=== PATIENT | male | born 1950 | race Caucasian/White ===

== ENCOUNTER 2017-01-03 17:37 | Emergency (ER) | payer OTHER ==
[~2017-01-03] VITALS: Ht 177.8 cm; Wt 79.0 kg
[~2017-01-03 17:37] MED LIST: AMLO5TAB88 PO; FAMO20TA8 PO; FLUC200T51 PO; FURO40TA5 PO; METF-240 PO; METO-293 PO; SUCR1TAB PO; WARF5TAB73 PO
[2017-01-03] MEDS ORDERED: MECLIZINE 25MG TABLET PO ONE (18:15)
[2017-01-03] MEDS ORDERED: LORAZEPAM 0.5MG TABLET PO ONE (18:15)
[2017-01-03 19:05] LABS: BASOPHILS % 0.9 % (0.0-2.0); EOSINOPHILS % 3.7 % (0.0-5.0); HEMATOCRIT. 42.3 % (42.0-52.0); HEMOGLOBIN. 14.5 g/dL (14.0-18.0); LYMPHOCYTES % 41.8 % (20.0-50.0); MEAN CORPUSCULAR HEMOGLOBIN 30.3 pg (28.0-32.0); MEAN CORPUSCULAR HGB CONC 34.3 g/dL (31.0-37.0); MEAN CORPUSCULAR VOLUME 88.5 fL (80.0-94.0); MEAN PLATELET VOLUME 9.7 fl (7.4-10.4); NEUTROPHILS % 44.6 % (40.0-76.0); PLATELET 145 x1000/uL (130-400); RED BLOOD CELL COUNT 4.78 mill/uL (4.7-6.1); RED CELL DISTRIBUTION WIDTH 13.6 % (11.6-14.6); WHITE BLOOD COUNT 5.4 x1000/uL (4.5-11.0)
[2017-01-03 19:26] LABS: ALANINE AMINOTRANSFERASE 25 IU/L (13-61); ANION GAP 12; CALCIUM 9.5 mg/dL (8.5-10.1); CARBON DIOXIDE 29 mEq/L (21-32); CHLORIDE 103 mEq/L (98-107); INDEX HEMOLYSI 1 (1-3); INDEX ICTERIC 1 (1-4); INDEX LIPEMIC 1 (1-3); UREA NITROGEN BLOOD 13 mg/dL (7-21); eGFR > 60 mL/min (>60)
[2017-01-03 19:27] LABS: TROPONIN I < 0.02 ng/mL (0.00-0.04)
[2017-01-03 21:40] VITALS: BP 124/81
== END 2017-01-03 21:42 | disposition home or self-care (01) ==
LOC: ER 18:09
DX: H81.10 Benign paroxysmal vertigo, unspecified ear (principal); I48.91 Unspecified atrial fibrillation; I25.10 Atherosclerotic heart disease of native coronary artery without angina pectoris; E78.00 Pure hypercholesterolemia, unspecified; E11.9 Type 2 diabetes mellitus without complications; I10 Essential (primary) hypertension; I25.2 Old myocardial infarction; Z79.01 Long term (current) use of anticoagulants; Z90.49 Acquired absence of other specified parts of digestive tract
CPT/HCPCS: 36415; 70450; 80053; 84484; 85025; 93005; 99285; Z7610; J8597

== ENCOUNTER 2017-02-25 20:58 | Inpatient (IN) | payer OTHER ==
[~2017-02-25] VITALS: Ht 165.1 cm; Wt 77.1 kg
[~2017-02-25 20:58] MED LIST changes: -METF-240 PO; +METF500T4 PO
[2017-02-26] MEDS ORDERED: SODIUM CHLORIDE 0.9% 1,000 ML IV ONE ×2 (00:45→04:15)
[2017-02-26] MEDS ORDERED: ONDANSETRON HCL 4MG/2ML VIAL IV ONE (00:45)
[2017-02-26] MEDS ORDERED: MORPHINE SULFATE 4 MG/ML CPJ (NOT FOR IM USE) IV ONE ×2 (00:45→04:15)
[2017-02-26 00:50] LABS: CHLORIDE 100 mEq/L (98-107); INDEX HEMOLYSI 2 (1-3); INDEX ICTERIC 1 (1-4); INDEX LIPEMIC 1 (1-3)
[2017-02-26 00:59] LABS: ALANINE AMINOTRANSFERASE 23 IU/L (13-61); ANION GAP 14; CALCIUM 10.4 mg/dL (8.5-10.1); CARBON DIOXIDE 31 mEq/L (21-32); LIPASE 1065 IU/L (73-393); UREA NITROGEN BLOOD 17 mg/dL (7-21); eGFR > 60 mL/min (>60)
[2017-02-26 01:43] LABS: CLARITY URINE CLEAR (CLEAR); COLOR URINE YELLOW (YELLOW); GLUCOSE URINE NEGATIVE (NEGATIVE); KETONES URINE NEGATIVE (NEGATIVE); LEUKOCYTE ESTERASE URINE NEGATIVE (NEGATIVE); NITRITE URINE NEGATIVE (NEGATIVE); OCCULT BLOOD URINE NEGATIVE (NEGATIVE); PH URINE 5.5 (4.5-8.0); PROTEIN URINE NEGATIVE (NEGATIVE); SPECIFIC GRAVITY URINE 1.015 (1.005-1.030); UROBILINOGEN URINE 0.2 E.U./dL (0.2-1.0)
[2017-02-26 01:51] LABS: BASOPHILS % 0.9 % (0.0-2.0); EOSINOPHILS % 3.2 % (0.0-5.0); HEMATOCRIT. 42.6 % (42.0-52.0); HEMOGLOBIN. 14.5 g/dL (14.0-18.0); LYMPHOCYTES % 35.5 % (20.0-50.0); MEAN CORPUSCULAR HEMOGLOBIN 29.8 pg (28.0-32.0); MEAN CORPUSCULAR HGB CONC 34.1 g/dL (31.0-37.0); MEAN CORPUSCULAR VOLUME 87.5 fL (80.0-94.0); MEAN PLATELET VOLUME 9.5 fl (7.4-10.4); MONOCYTES % 8.9 % (2.0-8.0); NEUTROPHILS % 51.5 % (40.0-76.0); PLATELET 172 x1000/uL (130-400); RED BLOOD CELL COUNT 4.87 mill/uL (4.7-6.1); WHITE BLOOD COUNT 6.8 x1000/uL (4.5-11.0)
[2017-02-26] MEDS ORDERED: HYDROCODONE/ACETAMINOPHEN 5/325MG TABLET PO PRN (04:30)
[2017-02-26] MEDS ORDERED: CLONIDINE 0.1MG TABLET PO PRN (04:30)
[2017-02-26] MEDS ORDERED: IPRATROPIUM/ALBUTEROL 0.5-3(2.5)MG/3ML NEB INH PRN (04:30)
[2017-02-26] MEDS ORDERED: ACETAMINOPHEN 325MG TABLET PO PRN (04:30)
[2017-02-26] MEDS ORDERED: DIPHENHYDRAMINE 50MG/ML VIAL IV PRN (04:30)
[2017-02-26] MEDS: MORPHINE SULFATE 2 MG/ML CPJ (NOT FOR IM USE) IV PRN ×2 (10:56→17:35)
[2017-02-26] MEDS: PANTOPRAZOLE SODIUM 40 MG/VIAL IV SCH (10:56)
[2017-02-26] MEDS: ONDANSETRON HCL 4MG/2ML VIAL IV PRN (17:35)
[2017-02-27] VITALS (7 sets, daily range): BP systolic 120–154; BP diastolic 77–97
[2017-02-27] MEDS: ONDANSETRON HCL 4MG/2ML VIAL IV PRN (00:18)
[2017-02-27] MEDS: SODIUM CHLORIDE 0.9% 1,000 ML IV SCH ×2 (00:29→08:36)
[2017-02-27] MEDS ORDERED: VITA1CAP PO (04:09)
[2017-02-27] MEDS ORDERED: CIME400T PO (04:09)
[2017-02-27] MEDS ORDERED: RANI150T7 (04:09)
[2017-02-27] MEDS ORDERED: COM10 PO (04:09)
[2017-02-27] MEDS ORDERED: ATOR10TA69 PO (04:09)
[2017-02-27] MEDS ORDERED: TRAZ-132 PO (04:09)
[2017-02-27] MEDS ORDERED: FERR325T30 PO (04:09)
[2017-02-27 05:52] LABS: BASOPHILS % 0.8 % (0.0-2.0); EOSINOPHILS % 3.5 % (0.0-5.0); HEMATOCRIT. 38.8 % (42.0-52.0); HEMOGLOBIN. 13.3 g/dL (14.0-18.0); LYMPHOCYTES % 31.3 % (20.0-50.0); MEAN CORPUSCULAR HGB CONC 34.3 g/dL (31.0-37.0); MEAN CORPUSCULAR VOLUME 87.3 fL (80.0-94.0); MEAN PLATELET VOLUME 9.3 fl (7.4-10.4); MONOCYTES % 8.2 % (2.0-8.0); NEUTROPHILS % 56.2 % (40.0-76.0); PLATELET 138 x1000/uL (130-400); RED BLOOD CELL COUNT 4.45 mill/uL (4.7-6.1); WHITE BLOOD COUNT 4.5 x1000/uL (4.5-11.0)
[2017-02-27 07:52] LABS: ALANINE AMINOTRANSFERASE 95 IU/L (13-61); ALBUMIN 3.3 g/dL (3.4-5.0); ANION GAP 10; CALCIUM 9.4 mg/dL (8.5-10.1); CARBON DIOXIDE 31 mEq/L (21-32); CHLORIDE 105 mEq/L (98-107); HDL CHOLESTEROL 46 mg/dL (40-59); INDEX HEMOLYSI 1 (1-3); INDEX ICTERIC 1 (1-4); INDEX LIPEMIC 1 (1-3); LDL CHOLESTEROL 68 mg/dL (5-100); LIPASE 111 IU/L (73-393); TRIGLYCERIDE 131 mg/dL (0-150); UREA NITROGEN BLOOD 10 mg/dL (7-21); eGFR > 60 mL/min (>60)
[2017-02-27 08:59] LABS: INR 1.1; PROTHROMBIN TIME 11.1 sec
[2017-02-27] MEDS ORDERED: FAMOTIDINE 20MG TABLET PO SCH (09:00)
[2017-02-27] MEDS: PANTOPRAZOLE SODIUM 40 MG/VIAL IV SCH (09:14)
[2017-02-27] MEDS: SUCRALFATE 1G TABLET PO SCH ×2 (09:14→17:48)
[2017-02-27] MEDS: VITAMIN B / W-C 1 TAB PO SCH (09:14)
[2017-02-27] MEDS: PROCHLORPERAZINE MALEATE 10MG TABLET PO SCH ×2 (09:14→17:48)
[2017-02-27] MEDS: ATORVASTATIN CALCIUM 10MG TABLET PO SCH (09:15)
[2017-02-27] MEDS: METFORMIN HCL 500MG TABLET PO SCH (09:15)
[2017-02-27] MEDS: FUROSEMIDE 40MG TABLET PO SCH ×2 (09:15→17:48)
[2017-02-27] MEDS: FERROUS SULFATE 325MG TABLET PO SCH (09:15)
[2017-02-27] MEDS: AMLODIPINE 5MG TABLET PO SCH (09:15)
[2017-02-27] MEDS: METOCLOPRAMIDE HCL 10MG TABLET PO SCH ×2 (09:15→17:48)
[2017-02-27] MEDS: WARFARIN SODIUM 5MG TABLET PO SCH (17:59)
[2017-02-27] MEDS: MORPHINE SULFATE 2 MG/ML CPJ (NOT FOR IM USE) IV PRN (20:41)
[2017-02-27] MEDS: DEXT 5%/0.45% NACL 1000ML 1,000 ML IV SCH (20:44)
[2017-02-27] MEDS ORDERED: TRAZODONE HCL 100MG TABLET PO SCH (21:00)
[2017-02-28] VITALS: BP 105/76
[2017-02-28 04:00] VITALS: BP 107/75
[2017-02-28] MEDS: MORPHINE SULFATE 2 MG/ML CPJ (NOT FOR IM USE) IV PRN ×2 (04:37→10:12)
[2017-02-28 08:00] VITALS: BP 120/78
[2017-02-28] MEDS: DEXT 5%/0.45% NACL 1000ML 1,000 ML IV SCH (08:57)
[2017-02-28] MEDS: PANTOPRAZOLE SODIUM 40 MG/VIAL IV SCH (08:57)
[2017-02-28] MEDS: ATORVASTATIN CALCIUM 10MG TABLET PO SCH (09:00)
[2017-02-28] MEDS: AMLODIPINE 5MG TABLET PO SCH (09:00)
[2017-02-28] MEDS: FERROUS SULFATE 325MG TABLET PO SCH (09:00)
[2017-02-28] MEDS: VITAMIN B / W-C 1 TAB PO SCH (09:00)
[2017-02-28] MEDS: FUROSEMIDE 40MG TABLET PO SCH ×2 (09:00→17:11)
[2017-02-28] MEDS: METFORMIN HCL 500MG TABLET PO SCH (09:00)
[2017-02-28] MEDS: METOCLOPRAMIDE HCL 10MG TABLET PO SCH ×2 (09:00→17:12)
[2017-02-28] MEDS: PROCHLORPERAZINE MALEATE 10MG TABLET PO SCH ×2 (09:00→17:11)
[2017-02-28] MEDS: SUCRALFATE 1G TABLET PO SCH ×2 (09:00→17:11)
[2017-02-28 12:00] VITALS: BP 111/69
[2017-02-28] MEDS ORDERED: LACTULOSE 20G/30ML UDC PO NR (13:15)
[2017-02-28 16:00] VITALS: BP 134/88
[2017-02-28] MEDS: WARFARIN SODIUM 5MG TABLET PO SCH (17:11)
[2017-02-28 17:25] VITALS: BP 134/88
== END 2017-02-28 18:10 | disposition home or self-care (01) | DRG 282 ==
LOC: ER 20:59 → 6EST 02-26 04:15
PROVIDERS: ADMIT Internal Medicine; ATTEND Internal Medicine
DX: K85.90 Acute pancreatitis without necrosis or infection, unspecified (principal); K27.5 Chronic or unspecified peptic ulcer, site unspecified, with perforation; I48.0 Paroxysmal atrial fibrillation; I10 Essential (primary) hypertension; E11.9 Type 2 diabetes mellitus without complications; Z79.4 Long term (current) use of insulin; Z79.01 Long term (current) use of anticoagulants; Z82.49 Family history of ischemic heart disease and other diseases of the circulatory system; Z83.3 Family history of diabetes mellitus; Z86.12 Personal history of poliomyelitis; Z87.11 Personal history of peptic ulcer disease; Z90.49 Acquired absence of other specified parts of digestive tract
CPT/HCPCS: 36415; 74176; 80053; 80061; 81003; 82962; 83690; 85025; 85610; 93005; 96361; 96374; 96375; 96376; 99285; C9113; J2270; J2405; J3490; J7030; J8597; Q0164

== ENCOUNTER 2018-10-26 21:45 | Inpatient (IN) | payer MEDICARE, MEDICAID ==
[~2018-10-26] VITALS: Ht 170.2 cm; Wt 84.4 kg
[~2018-10-26 21:45] MED LIST changes: +ATOR10TA69 PO; +CIME400T PO; +COM10 PO; +FERR325T30 PO; +METF-414 PO; -METF500T4 PO; +RANI150T7; +TRAZ-213 PO; +VITA1CAP PO; +WARF-53 PO; -WARF5TAB73 PO
[2018-10-27] MEDS ORDERED: ONDANSETRON HCL 4MG/2ML INJ IV STA (02:31)
[2018-10-27] MEDS ORDERED: MORPHINE SULFATE 4 MG/ML CPJ (NOT FOR IM USE) IV STA (02:31)
[2018-10-27] MEDS ORDERED: FAMOTIDINE 20MG/2ML VIAL IV STA (02:31)
[2018-10-27] MEDS ORDERED: SODIUM CHLORIDE 0.9% 1,000 ML IV ONE (02:31)
[2018-10-27 03:04] LABS: CHLORIDE 107 mEq/L (98-107)
[2018-10-27 03:05] LABS: INR 1.1; PROTHROMBIN TIME 10.8 sec (9.1-11.1)
[2018-10-27 03:07] LABS: BASOPHILS % 0.7 % (0.0-2.0); EOSINOPHILS % 2.6 % (0.0-5.0); HEMATOCRIT. 45.1 % (42.0-52.0); HEMOGLOBIN. 15.2 g/dL (14.0-18.0); LYMPHOCYTES % 28.9 % (20.0-50.0); MEAN CORPUSCULAR HEMOGLOBIN 29.6 pg (28.0-32.0); MEAN CORPUSCULAR VOLUME 88.1 fL (80.0-94.0); MEAN PLATELET VOLUME 9.8 fl (7.4-10.4); MONOCYTES % 8.6 % (2.0-8.0); NEUTROPHILS % 59.2 % (40.0-76.0); PLATELET 194 x1000/uL (130-400); RED BLOOD CELL COUNT 5.13 mill/uL (4.7-6.1); RED CELL DISTRIBUTION WIDTH 13.7 % (11.6-14.6)
[2018-10-27] MEDS: SODIUM CHLORIDE 0.9% 1,000 ML IV SCH ×2 (04:26→20:41)
[2018-10-27] MEDS ORDERED: MAGNESIUM/ALUMINUM HYDROXIDE/SIMETHICONE 30ML UDC PO PRN (04:30)
[2018-10-27] MEDS ORDERED: DIPHENHYDRAMINE 50MG/ML VIAL IV PRN (04:30)
[2018-10-27] MEDS ORDERED: DOCUSATE SODIUM 100MG CAPSULE PO PRN (04:30)
[2018-10-27] MEDS ORDERED: ACETAMINOPHEN 325MG TABLET PO PRN (04:30)
[2018-10-27] MEDS ORDERED: IPRATROPIUM/ALBUTEROL 0.5-3(2.5)MG/3ML NEB INH PRN (04:30)
[2018-10-27] MEDS ORDERED: ONDANSETRON HCL 4MG/2ML INJ IV PRN (04:30)
[2018-10-27] MEDS: PANTOPRAZOLE SODIUM 40 MG/VIAL IV SCH ×2 (04:30→09:00)
[2018-10-27] MEDS ORDERED: GUAIFENESIN 200MG/10ML SUGAR FREE UDC PO PRN (04:30)
[2018-10-27] MEDS ORDERED: DEXTROSE 50% WATER 50ML SYRINGE IV PRN ×2 (04:30)
[2018-10-27] MEDS ORDERED: CLONIDINE 0.1MG TABLET PO PRN (04:30)
[2018-10-27] MEDS ORDERED: IOHEXOL-300 100 ML BOTTLE ONE (05:51)
[2018-10-27 06:13] LABS: CLARITY URINE CLEAR (CLEAR); COLOR URINE YELLOW (YELLOW); KETONES URINE NEGATIVE (NEGATIVE); LEUKOCYTE ESTERASE URINE NEGATIVE (NEGATIVE); NITRITE URINE NEGATIVE (NEGATIVE); OCCULT BLOOD URINE NEGATIVE (NEGATIVE); PH URINE 5.5 (4.5-8.0); PROTEIN URINE NEGATIVE (NEGATIVE); SPECIFIC GRAVITY URINE 1.022 (1.005-1.030)
[2018-10-27] MEDS: INSULIN LISPRO 100 UNITS/ML SUBCUT SCH ×3 (08:20→21:00)
[2018-10-27] MEDS: PROCHLORPERAZINE MALEATE 10MG TABLET PO SCH ×2 (09:00→20:41)
[2018-10-27] MEDS ORDERED: ATORVASTATIN CALCIUM 10MG TABLET PO SCH (09:00)
[2018-10-27] MEDS ORDERED: METOCLOPRAMIDE HCL 10MG TABLET PO ONE (09:00)
[2018-10-27] MEDS ORDERED: FUROSEMIDE 40MG TABLET PO SCH (09:00)
[2018-10-27] MEDS: SUCRALFATE 1G TABLET PO SCH ×3 (09:00→20:41)
[2018-10-27] MEDS ORDERED: AMLODIPINE 5MG TABLET PO SCH (09:00)
[2018-10-27] MEDS ORDERED: WARFARIN SODIUM 5MG TABLET PO SCH (09:00)
[2018-10-27] MEDS: FERROUS SULFATE 325MG TABLET PO SCH (09:00)
[2018-10-27] MEDS: BLOOD SUGAR DIAGNOSTIC STRIP TEST SCH ×3 (11:50→20:42)
[2018-10-27] MEDS ORDERED: SODIUM CHLORIDE 0.9% 1,000 ML IV SCH (12:30)
[2018-10-27 16:00] VITALS: BP 105/61
[2018-10-27] MEDS: METOCLOPRAMIDE HCL 10MG TABLET PO SCH (17:05)
[2018-10-27] MEDS: ATORVASTATIN CALCIUM 10MG TABLET PO SCH (17:05)
[2018-10-27] MEDS: AMLODIPINE 5MG TABLET PO SCH (17:06)
[2018-10-27 20:19] VITALS: BP 110/79
[2018-10-27] MEDS: TRAZODONE HCL 100MG TABLET PO SCH (20:41)
[2018-10-27] MEDS: FUROSEMIDE 40MG TABLET PO SCH (20:41)
[2018-10-27] MEDS ORDERED: INSULIN GLARGINE UD 100 UNITS/ML SYR SUBCUT SCH (22:00)
[2018-10-28 00:41] VITALS: BP 113/81
[2018-10-28 04:00] VITALS: BP 107/63
[2018-10-28] MEDS: FUROSEMIDE 40MG TABLET PO SCH (06:17)
[2018-10-28] MEDS: BLOOD SUGAR DIAGNOSTIC STRIP TEST SCH ×4 (06:17→20:20)
[2018-10-28] MEDS: SUCRALFATE 1G TABLET PO SCH ×4 (06:17→20:20)
[2018-10-28] MEDS: SODIUM CHLORIDE 0.9% 1,000 ML IV SCH ×2 (07:06→21:16)
[2018-10-28] MEDS: INSULIN LISPRO 100 UNITS/ML SUBCUT SCH ×4 (07:15→20:20)
[2018-10-28 07:20] LABS: INR 1.1; PROTHROMBIN TIME 10.9 sec (9.1-11.1)
[2018-10-28 07:23] LABS: HEMATOCRIT. 41.8 % (42.0-52.0); HEMOGLOBIN. 13.9 g/dL (14.0-18.0); MEAN CORPUSCULAR HEMOGLOBIN 29.4 pg (28.0-32.0); MEAN CORPUSCULAR VOLUME 88.6 fL (80.0-94.0); MEAN PLATELET VOLUME 9.5 fl (7.4-10.4); PLATELET 178 x1000/uL (130-400); RED BLOOD CELL COUNT 4.72 mill/uL (4.7-6.1); RED CELL DISTRIBUTION WIDTH 13.5 % (11.6-14.6)
[2018-10-28 07:41] LABS: CHLORIDE 110 mEq/L (98-107)
[2018-10-28 07:51] LABS: AMYLASE 32 IU/L (25-115)
[2018-10-28 07:54] LABS: PHOSPHORUS 2.8 mg/dL (2.5-4.9)
[2018-10-28 08:00] VITALS: BP 118/69
[2018-10-28] MEDS: FERROUS SULFATE 325MG TABLET PO SCH (09:29)
[2018-10-28] MEDS: PANTOPRAZOLE SODIUM 40 MG/VIAL IV SCH (09:29)
[2018-10-28] MEDS: PROCHLORPERAZINE MALEATE 10MG TABLET PO SCH ×2 (09:29→17:22)
[2018-10-28] MEDS: ATORVASTATIN CALCIUM 10MG TABLET PO SCH (09:29)
[2018-10-28] MEDS: AMLODIPINE 5MG TABLET PO SCH (09:29)
[2018-10-28] MEDS: METOCLOPRAMIDE HCL 10MG TABLET PO SCH ×2 (09:30→17:23)
[2018-10-28 12:00] VITALS: BP 113/59
[2018-10-28 13:45] LABS: PLATELET ESTIMATE NORMAL
[2018-10-28] MEDS: DILTIAZEM HCL 30MG TABLET PO SCH ×2 (14:00→21:17)
[2018-10-28 16:00] VITALS: BP 109/54
[2018-10-28] MEDS ORDERED: RIVAROXABAN 10 MG TABLET PO SCH (17:00)
[2018-10-28] MEDS: AMIODARONE HCL 200 MG TABLET PO SCH (17:22)
[2018-10-28] MEDS ORDERED: WARFARIN SODIUM 5MG TABLET PO SCH (18:00)
[2018-10-28 20:00] VITALS: BP 103/52
[2018-10-28] MEDS: TRAZODONE HCL 100MG TABLET PO SCH (20:20)
[2018-10-29] VITALS: BP 111/55
[2018-10-29 04:00] VITALS: BP 114/65
[2018-10-29] MEDS: DILTIAZEM HCL 30MG TABLET PO SCH (06:00)
[2018-10-29] MEDS: BLOOD SUGAR DIAGNOSTIC STRIP TEST SCH ×2 (06:06→12:46)
[2018-10-29] MEDS: INSULIN LISPRO 100 UNITS/ML SUBCUT SCH ×2 (06:06→12:15)
[2018-10-29 06:14] VITALS: BP 108/66
[2018-10-29] MEDS: METOCLOPRAMIDE HCL 10MG TABLET PO SCH ×2 (06:18→12:51)
[2018-10-29] MEDS: SUCRALFATE 1G TABLET PO SCH ×2 (06:18→12:51)
[2018-10-29 06:31] LABS: EOSINOPHILS % 3.5 % (0.0-5.0); HEMATOCRIT. 37.6 % (42.0-52.0); HEMOGLOBIN. 12.7 g/dL (14.0-18.0); LYMPHOCYTES % 29.3 % (20.0-50.0); MEAN CORPUSCULAR HEMOGLOBIN 29.9 pg (28.0-32.0); MEAN CORPUSCULAR VOLUME 88.6 fL (80.0-94.0); MEAN PLATELET VOLUME 9.8 fl (7.4-10.4); MONOCYTES % 9.1 % (2.0-8.0); NEUTROPHILS % 57.1 % (40.0-76.0); PLATELET 165 x1000/uL (130-400); RED BLOOD CELL COUNT 4.24 mill/uL (4.7-6.1); RED CELL DISTRIBUTION WIDTH 13.4 % (11.6-14.6)
[2018-10-29 07:15] LABS: CHLORIDE 112 mEq/L (98-107)
[2018-10-29 08:00] VITALS: BP 117/70
[2018-10-29] MEDS: ATORVASTATIN CALCIUM 10MG TABLET PO SCH (10:33)
[2018-10-29] MEDS: PANTOPRAZOLE SODIUM 40 MG/VIAL IV SCH (10:33)
[2018-10-29] MEDS: PROCHLORPERAZINE MALEATE 10MG TABLET PO SCH (10:34)
[2018-10-29] MEDS: AMIODARONE HCL 200 MG TABLET PO SCH (10:34)
[2018-10-29 13:44] VITALS: BP 114/96
[2018-10-29] MEDS ORDERED: RIVAROXABAN 20 MG TABLET PO SCH (17:00)
== END 2018-10-29 14:45 | disposition home or self-care (01) | DRG 48 ==
LOC: ER 21:45 → 5WST 10-27 03:19 → EDBEDREQ 10-27 03:21 → ENRESERV 10-27 13:12
PROVIDERS: ADMIT Family Medicine Adult Medicine; ATTEND Family Medicine Adult Medicine
DX: E11.43 Type 2 diabetes mellitus with diabetic autonomic (poly)neuropathy (principal); I48.0 Paroxysmal atrial fibrillation; I42.9 Cardiomyopathy, unspecified; E86.0 Dehydration; K31.84 Gastroparesis; I51.3 Intracardiac thrombosis, not elsewhere classified; I10 Essential (primary) hypertension; I71.4 Abdominal aortic aneurysm, without rupture; J44.9 Chronic obstructive pulmonary disease, unspecified; N28.9 Disorder of kidney and ureter, unspecified; Z79.01 Long term (current) use of anticoagulants; Z87.11 Personal history of peptic ulcer disease; Z82.49 Family history of ischemic heart disease and other diseases of the circulatory system; Z83.3 Family history of diabetes mellitus; Z86.79 Personal history of other diseases of the circulatory system; Z87.891 Personal history of nicotine dependence; Z90.49 Acquired absence of other specified parts of digestive tract; Z79.899 Other long term (current) drug therapy; Z79.84 Long term (current) use of oral hypoglycemic drugs
CPT/HCPCS: 36415; 71045; 74177; 76700; 80048; 82150; 82962; 83036; 83605; 83735; 83880; 84100; 84443; 84484; 86850; 86900; 93005; 99285; C9113; J2270; J2405; J3490; J7030; J8597; Q0164; Q9967

== ENCOUNTER 2019-01-19 13:46 | Inpatient (IN) | payer MEDICARE, OTHER ==
[~2019-01-19] VITALS: Ht 170.2 cm; Wt 87.1 kg
[~2019-01-19 13:46] MED LIST changes: -WARF-53 PO
[2019-01-19] MEDS ORDERED: SODIUM CHLORIDE 0.9% 1,000 ML IV ONE (14:12)
[2019-01-19] MEDS ORDERED: MECLIZINE 25MG TABLET PO ONE (14:15)
[2019-01-19 14:45] LABS: BASOPHILS % 1.2 % (0.0-2.0); EOSINOPHILS % 2.1 % (0.0-5.0); HEMATOCRIT. 40.2 % (42.0-52.0); HEMOGLOBIN. 13.5 g/dL (14.0-18.0); LYMPHOCYTES % 14.7 % (20.0-50.0); MEAN CORPUSCULAR HEMOGLOBIN 28.9 pg (28.0-32.0); MEAN CORPUSCULAR VOLUME 86.3 fL (80.0-94.0); MEAN PLATELET VOLUME 8.6 fl (7.4-10.4); MONOCYTES % 7.1 % (2.0-8.0); NEUTROPHILS % 74.9 % (40.0-76.0); PLATELET 263 x1000/uL (130-400); RED BLOOD CELL COUNT 4.66 mill/uL (4.7-6.1)
[2019-01-19 14:48] LABS: CHLORIDE 100 mEq/L (98-107)
[2019-01-19 14:51] LABS: INR 1.1; PARTIAL THROMBOPLASTIN TIME 27.4 sec (23.4-31.0); PROTHROMBIN TIME 10.9 sec (9.6-11.0)
[2019-01-19] MEDS ORDERED: ONDANSETRON HCL 4MG/2ML INJ IV ONE (15:45)
[2019-01-19] MEDS ORDERED: ASPIRIN 81MG TABLET PO ONE (15:45)
[2019-01-19] MEDS ORDERED: GUAIFENESIN 200MG/10ML SUGAR FREE UDC PO PRN (17:30)
[2019-01-19] MEDS ORDERED: LORAZEPAM 0.5MG TABLET PO PRN (17:30)
[2019-01-19] MEDS ORDERED: DEXTROSE 50% WATER 50ML SYRINGE IV PRN (17:30)
[2019-01-19] MEDS ORDERED: MECLIZINE 25MG TABLET PO PRN (17:30)
[2019-01-19] MEDS ORDERED: NA PHOS,M-B/NA PHOS,DI-BA ENEMA 118ML PR PRN (17:30)
[2019-01-19] MEDS ORDERED: HYDROCODONE/ACETAMINOPHEN 5/325MG TABLET PO PRN (17:30)
[2019-01-19] MEDS ORDERED: IPRATROPIUM/ALBUTEROL 0.5-3(2.5)MG/3ML NEB INH PRN (17:30)
[2019-01-19] MEDS ORDERED: SODIUM CHLORIDE 0.45% 1,000 ML IV SCH (17:30)
[2019-01-19] MEDS ORDERED: ACETAMINOPHEN 650MG SUPP PR PRN (17:30)
[2019-01-19] MEDS ORDERED: MAGNESIUM/ALUMINUM HYDROXIDE/SIMETHICONE 30ML UDC PO PRN (17:30)
[2019-01-19] MEDS ORDERED: DIPHENHYDRAMINE 50MG/ML VIAL IV PRN (17:30)
[2019-01-19] MEDS ORDERED: ONDANSETRON HCL 4MG/2ML INJ IV PRN (17:30)
[2019-01-19] MEDS ORDERED: DOCUSATE SODIUM 100MG CAPSULE PO PRN (17:30)
[2019-01-19] MEDS ORDERED: ACETAMINOPHEN 325MG TABLET PO PRN (17:30)
[2019-01-19 18:54] LABS: CLARITY URINE CLEAR (CLEAR); COLOR URINE YELLOW (YELLOW); KETONES URINE NEGATIVE (NEGATIVE); LEUKOCYTE ESTERASE URINE NEGATIVE (NEGATIVE); NITRITE URINE NEGATIVE (NEGATIVE); OCCULT BLOOD URINE NEGATIVE (NEGATIVE); PH URINE 6.5 (4.5-8.0); PROTEIN URINE NEGATIVE (NEGATIVE); SPECIFIC GRAVITY URINE 1.009 (1.005-1.030)
[2019-01-19 19:08] LABS: *AMPHETAMINES SCREEN URINE NEGATIVE (NEGATIVE); *BARBITURATES SCREEN URINE NEGATIVE (NEGATIVE); *BENZODIAZEPINES SCREEN URINE NEGATIVE (NEGATIVE); *COCAINE SCREEN URINE NEGATIVE (NEGATIVE); METHADONE URINE SCREEN NEGATIVE (NEGATIVE)
[2019-01-19 19:09] LABS: CANNABINOID URINE SCREEN NEGATIVE (NEGATIVE); OPIATES URINE SCREEN NEGATIVE (NEGATIVE); PHENCYCLIDINE URINE SCREEN NEGATIVE (NEGATIVE)
[2019-01-19 22:42] VITALS: BP 118/68
[2019-01-19] MEDS: INSULIN LISPRO 100 UNITS/ML SUBCUT SCH (22:42)
[2019-01-19] MEDS: BLOOD SUGAR DIAGNOSTIC STRIP TEST SCH (22:42)
[2019-01-20 04:00] VITALS: BP 122/70
[2019-01-20 07:17] LABS: CHLORIDE 106 mEq/L (98-107)
[2019-01-20 07:25] LABS: LDL CHOLESTEROL 108 mg/dL (5-100)
[2019-01-20 07:27] LABS: HDL CHOLESTEROL 30 mg/dL (40-59)
[2019-01-20 07:35] LABS: BASOPHILS % 1.1 % (0.0-2.0); EOSINOPHILS % 2.5 % (0.0-5.0); HEMATOCRIT. 37.4 % (42.0-52.0); HEMOGLOBIN. 12.4 g/dL (14.0-18.0); LYMPHOCYTES % 20.6 % (20.0-50.0); MEAN CORPUSCULAR HEMOGLOBIN 28.7 pg (28.0-32.0); MEAN CORPUSCULAR VOLUME 86.7 fL (80.0-94.0); MEAN PLATELET VOLUME 8.8 fl (7.4-10.4); MONOCYTES % 8.3 % (2.0-8.0); NEUTROPHILS % 67.5 % (40.0-76.0); PLATELET 217 x1000/uL (130-400); RED BLOOD CELL COUNT 4.31 mill/uL (4.7-6.1); RED CELL DISTRIBUTION WIDTH 14.2 % (11.6-14.6)
[2019-01-20 08:00] VITALS: BP 157/61
[2019-01-20] MEDS: INSULIN LISPRO 100 UNITS/ML SUBCUT SCH ×4 (08:10→21:51)
[2019-01-20] MEDS: BLOOD SUGAR DIAGNOSTIC STRIP TEST SCH ×4 (08:33→21:47)
[2019-01-20] MEDS: ENOXAPARIN 40MG/0.4ML SYR SUBCUT SCH (09:38)
[2019-01-20 12:00] VITALS: BP 109/56
[2019-01-20] MEDS ORDERED: LIDOCAINE HCL/PF 1% 2ML VIAL ONE (15:22)
[2019-01-20] MEDS ORDERED: TRAZODONE HCL 50MG TABLET PO PRN (15:45)
[2019-01-20 16:00] VITALS: BP 113/60
[2019-01-20 16:06] LABS: BG BASE EXCESS 0.4 mmol/L (-2.0-2.0); BG CARBOXYHEMOGLOBIN 0.6 % (0.5-1.5); BG DEOXYHEMOGLOBIN 4.1 % (0.0-5.0); BG HCO3 ACT 24.8 mmol/L (22.0-26.0); BG METHEMOGLOBIN 0.1 % (0.0-1.5); BG OXYGEN SATURATION 95.9 % (92.0-98.5); BG OXYHEMOGLOBIN 95.2 % (94.0-97.0); BG PCO2 39.5 mmHg (35.0-45.0); BG PH 7.416 (7.350-7.450); BG PO2 81.3 mmHg (75.0-100.0); BG SAMPLE SITE RIGHT RADIAL; BG TOTAL HEMOGLOBIN 14.2 g/dL (12.0-18.0); BG VENT MODE ROOM AIR
[2019-01-20] MEDS ORDERED: IOHEXOL-350 100 ML BOTTLE ONE (16:43)
[2019-01-20] MEDS ORDERED: BUDESONIDE 0.5MG/2ML NEB HHN SCH (17:00)
[2019-01-20] MEDS: ASPIRIN 81MG TABLET PO SCH (17:35)
[2019-01-20] MEDS: AMLODIPINE 2.5MG TABLET PO SCH (17:35)
[2019-01-20] MEDS: SUCRALFATE 1G TABLET PO SCH (17:35)
[2019-01-20] MEDS ORDERED: IPRATROPIUM/ALBUTEROL 0.5-3(2.5)MG/3ML NEB HHN SCH (18:00)
[2019-01-20] MEDS ORDERED: REGADENOSON 0.4 MG/5 ML IV NR (19:00)
[2019-01-20 20:00] VITALS: BP 142/72
[2019-01-20] MEDS ORDERED: ATORVASTATIN CALCIUM 10MG TABLET PO SCH (21:00)
[2019-01-20 23:57] VITALS: BP 136/69
[2019-01-21] VITALS (9 sets, daily range): BP systolic 119–146; BP diastolic 72–95
[2019-01-21 06:19] LABS: HEMOGLOBIN 12.8 g/dL (14.0-18.0); MEAN CORPUSCULAR HEMOGLOBIN 28.9 pg (28.0-32.0); MEAN CORPUSCULAR VOLUME 86.2 fL (80.0-94.0); PLATELET 224 x1000/uL (130-400); RED BLOOD CELL COUNT 4.41 mill/uL (4.7-6.1); RED CELL DISTRIBUTION WIDTH 14.5 % (11.6-14.6)
[2019-01-21 06:33] LABS: CHLORIDE 105 mEq/L (98-107)
[2019-01-21] MEDS ORDERED: LEVOTHYROXINE SODIUM 25MCG TABLET PO SCH (07:40)
[2019-01-21] MEDS: INSULIN LISPRO 100 UNITS/ML SUBCUT SCH ×3 (08:10→18:10)
[2019-01-21] MEDS: BLOOD SUGAR DIAGNOSTIC STRIP TEST SCH ×3 (08:35→17:40)
[2019-01-21] MEDS: SUCRALFATE 1G TABLET PO SCH ×2 (09:00→19:01)
[2019-01-21] MEDS: ASPIRIN 81MG TABLET PO SCH (09:00)
[2019-01-21] MEDS ORDERED: FERROUS SULFATE 325MG TABLET PO SCH (09:00)
[2019-01-21] MEDS ORDERED: CIMETIDINE 400 MG PO SCH (09:00)
[2019-01-21] MEDS ORDERED: FAMOTIDINE 20MG TABLET PO SCH (09:00)
[2019-01-21] MEDS: AMLODIPINE 2.5MG TABLET PO SCH (09:00)
[2019-01-21] MEDS ORDERED: REGADENOSON 0.4 MG/5 ML IV ONE (09:15)
[2019-01-21] MEDS: ENOXAPARIN 40MG/0.4ML SYR SUBCUT SCH (14:08)
== END 2019-01-21 20:25 | disposition home or self-care (01) | DRG 48 ==
LOC: ER 13:46 → 7WST 16:29 → ENRESERV 20:45
PROVIDERS: ADMIT Internal Medicine; ATTEND Internal Medicine
DX: G90.8 Other disorders of autonomic nervous system (principal); I26.99 Other pulmonary embolism without acute cor pulmonale; J84.9 Interstitial pulmonary disease, unspecified; D68.59 Other primary thrombophilia; E11.65 Type 2 diabetes mellitus with hyperglycemia; I24.9 Acute ischemic heart disease, unspecified; I48.0 Paroxysmal atrial fibrillation; D64.9 Anemia, unspecified; R54 Age-related physical debility; F17.200 Nicotine dependence, unspecified, uncomplicated; E78.5 Hyperlipidemia, unspecified; I10 Essential (primary) hypertension; R00.1 Bradycardia, unspecified; Z82.49 Family history of ischemic heart disease and other diseases of the circulatory system; Z83.3 Family history of diabetes mellitus; Z86.12 Personal history of poliomyelitis; Z87.11 Personal history of peptic ulcer disease; Z99.3 Dependence on wheelchair; Z79.899 Other long term (current) drug therapy; Z90.49 Acquired absence of other specified parts of digestive tract
CPT/HCPCS: 36415; 36600; 71045; 71275; 78452; 80048; 80061; 80305; 82375; 82805; 82962; 83036; 83880; 84439; 84443; 84484; 85027; 85379; 93005; 93017; 93306; 93880; 93970; 96374; 97116; 97163; 99285; A9500; J1650; J1815; J2405; J2785; J3490; J7030; J7626; J8597; Q9967

== ENCOUNTER 2019-03-08 11:55 | Emergency (ER) | payer MEDICARE, OTHER ==
[~2019-03-08] VITALS: Ht 177.8 cm; Wt 87.0 kg
[2019-03-08] MEDS: MORPHINE SULFATE 4 MG/ML CPJ (NOT FOR IM USE) IV STA (12:27)
[2019-03-08] MEDS: ONDANSETRON HCL 4MG/2ML INJ IV STA (12:27)
[2019-03-08] MEDS: NITROGLYCERIN OINT 1GM/INCH UDPKT TD ONE (12:30)
[2019-03-08 12:40] LABS: BASOPHILS % 1.3 % (0.0-2.0); CHLORIDE 104 mEq/L (98-107); EOSINOPHILS % 2.1 % (0.0-5.0); HEMATOCRIT. 42.8 % (42.0-52.0); HEMOGLOBIN. 14.4 g/dL (14.0-18.0); LYMPHOCYTES % 17.9 % (20.0-50.0); MEAN CORPUSCULAR HEMOGLOBIN 28.9 pg (28.0-32.0); MEAN PLATELET VOLUME 8.7 fl (7.4-10.4); MONOCYTES % 6.8 % (2.0-8.0); NEUTROPHILS % 71.9 % (40.0-76.0); PLATELET 256 x1000/uL (130-400); RED BLOOD CELL COUNT 4.98 mill/uL (4.7-6.1); RED CELL DISTRIBUTION WIDTH 14.9 % (11.6-14.6)
[2019-03-08 12:45] LABS: PARTIAL THROMBOPLASTIN TIME 28.8 sec (23.4-31.0); PROTHROMBIN TIME 10.5 sec (9.6-11.0)
[2019-03-08 16:52] VITALS: BP 120/78
[2019-05-02] MEDS ORDERED: ASPI-1158 PO (05:40)
[2019-05-02] MEDS ORDERED: APIX5TAB PO (05:40)
[2019-05-02] MEDS ORDERED: DILT180C3 MT (05:40)
[2019-05-02] MEDS ORDERED: AMIO100T4 PO (05:40)
[2019-05-02] MEDS ORDERED: APIX5TAB MT (05:40)
== END 2019-03-08 17:07 | disposition short-term general hospital (02) ==
LOC: ER 11:55 → EDBEDREQTM 13:18 → EDBEDREQ 13:18 → CANRESERV 14:40 → ENRESERV 14:40 → EDRESERV 14:40 → ER 17:07 → CANBEDREQ 19:25
DX: R07.89 Other chest pain (principal); I11.0 Hypertensive heart disease with heart failure; I50.20 Unspecified systolic (congestive) heart failure; I48.0 Paroxysmal atrial fibrillation; D68.59 Other primary thrombophilia; D64.9 Anemia, unspecified; E78.5 Hyperlipidemia, unspecified; E11.9 Type 2 diabetes mellitus without complications; R20.2 Paresthesia of skin; H53.8 Other visual disturbances; I25.2 Old myocardial infarction; Z90.49 Acquired absence of other specified parts of digestive tract; Z98.890 Other specified postprocedural states; Z87.11 Personal history of peptic ulcer disease; Z79.899 Other long term (current) drug therapy
CPT/HCPCS: 36415; 70551; 71045; 72141; 80053; 83880; 84484; 85025; 85610; 85730; 93005; 96374; 96375; 99285; J2270; J2405

== ENCOUNTER → 2019-04-26 | Outpatient (CLI) | payer MEDICARE, MEDICAID ==
[~2019-04-26] MED LIST changes: +AMIO100T4 PO; +APIX5TAB MT; +APIX5TAB PO; +ASPI-1158 PO; +DILT180C3 MT
== END | disposition home or self-care (01) ==
LOC: MRI 10:16
PROVIDERS: ATTEND Neurological Surgery
DX: M47.816 Spondylosis without myelopathy or radiculopathy, lumbar region (principal); M48.061 Spinal stenosis, lumbar region without neurogenic claudication
CPT/HCPCS: 72148

== ENCOUNTER 2019-07-12 19:49 | Emergency (ER) | payer MEDICARE, MEDICAID ==
[~2019-07-12] VITALS: Ht 165.1 cm; Wt 88.0 kg
[~2019-07-12 19:49] MED LIST changes: -APIX5TAB PO; -ATOR10TA69 PO; -CIME400T PO; -COM10 PO; -FAMO20TA8 PO; -FERR325T30 PO; -FLUC200T51 PO; -METO-293 PO; -RANI150T7; -SUCR1TAB PO; -VITA1CAP PO
[2019-07-12] MEDS ORDERED: KETOROLAC 30MG/ML VIAL IV STA (21:24)
[2019-07-12] MEDS ORDERED: VANCOMYCIN 1 G PREMIX 200 ML IV ONE (21:45)
[2019-07-12] MEDS ORDERED: PIPERACILLIN/TAZ 3.375G PREMIX 50 ML IV ONE (21:45)
[2019-07-12 22:12] LABS: PROTHROMBIN TIME 10.5 sec (9.6-11.0)
[2019-07-12 22:13] LABS: CHLORIDE 107 mEq/L (98-107)
[2019-07-12 22:15] LABS: BASOPHILS % 0.9 % (0.0-2.0); HEMATOCRIT. 43.9 % (42.0-52.0); HEMOGLOBIN. 15.1 g/dL (14.0-18.0); LYMPHOCYTES % 16.9 % (20.0-50.0); MEAN CORPUSCULAR HEMOGLOBIN 30.3 pg (28.0-32.0); MEAN CORPUSCULAR VOLUME 88.4 fL (80.0-94.0); MONOCYTES % 8.3 % (2.0-8.0); NEUTROPHILS % 68.9 % (40.0-76.0); RED BLOOD CELL COUNT 4.96 mill/uL (4.7-6.1); RED CELL DISTRIBUTION WIDTH 14.8 % (11.6-14.6)
[2019-07-12 22:28] LABS: PLATELET 159 x1000/uL (130-400)
[2019-07-12 22:29] LABS: MEAN PLATELET VOLUME 10.2 fl (7.4-10.4)
[2019-07-13] MEDS ORDERED: MORPHINE SULFATE 4 MG/ML CPJ (NOT FOR IM USE) IV ONE (00:30)
[2019-07-13] MEDS ORDERED: ONDANSETRON HCL 4MG/2ML INJ IV ONE (00:30)
[2019-07-13 01:15] VITALS: BP 155/97
== END 2019-07-13 02:00 | disposition short-term general hospital (02) ==
LOC: ER 19:49
DX: M65.88 Other synovitis and tenosynovitis, other site (principal); S61.252A Open bite of right middle finger without damage to nail, initial encounter; W54.0XXA Bitten by dog, initial encounter; Y93.89 Activity, other specified; Y92.89 Other specified places as the place of occurrence of the external cause
CPT/HCPCS: 36415; 71045; 73130; 80053; 83605; 85025; 85610; 87040; 93005; 96365; 96367; 96375; 99285; J1885; J2270; J2405; J2543; J3370; Z7610

== ENCOUNTER 2019-11-13 17:19 | Inpatient (IN) | payer MEDICARE, MEDICAID ==
[~2019-11-13] VITALS: Ht 165.1 cm; Wt 93.9 kg
[~2019-11-13 17:19] MED LIST changes: -DILT180C3 MT; +DILT180C87 MT; -TRAZ-213 PO; +TRAZ-252 PO
[2019-11-14] MEDS ORDERED: MORPHINE SULFATE 4 MG/ML CPJ (NOT FOR IM USE) IV ONE (08:15)
[2019-11-14 08:26] LABS: BASOPHILS % 1.2 % (0.0-2.0); EOSINOPHILS % 3.2 % (0.0-5.0); HEMATOCRIT. 46.1 % (42.0-52.0); HEMOGLOBIN. 15.3 g/dL (14.0-18.0); LYMPHOCYTES % 19.8 % (20.0-50.0); MEAN CORPUSCULAR HEMOGLOBIN 29.2 pg (28.0-32.0); MEAN CORPUSCULAR VOLUME 87.9 fL (80.0-94.0); MEAN PLATELET VOLUME 9.8 fl (7.4-10.4); NEUTROPHILS % 67.8 % (40.0-76.0); PLATELET 127 x1000/uL (130-400); RED BLOOD CELL COUNT 5.24 mill/uL (4.7-6.1); RED CELL DISTRIBUTION WIDTH 14.7 % (11.6-14.6)
[2019-11-14 08:31] LABS: CHLORIDE 104 mEq/L (98-107)
[2019-11-14 12:13] VITALS: BP 135/98
[2019-11-14 12:30] VITALS: BP 135/78
[2019-11-14 16:00] VITALS: BP 138/77
[2019-11-14] MEDS ORDERED: ACETAMINOPHEN 650MG/20.3ML UDC PO PRN (16:00)
[2019-11-14] MEDS ORDERED: DEXTROSE 50% WATER 50ML SYRINGE IV PRN (16:00)
[2019-11-14] MEDS: FUROSEMIDE 40MG/4ML VIAL IVP SCH (16:52)
[2019-11-14] MEDS: POTASSIUM CHLORIDE 20MEQ TABLET SR PO SCH (16:53)
[2019-11-14] MEDS: APIXABAN 5 MG TABLET PO SCH (16:53)
[2019-11-14] MEDS: BLOOD SUGAR DIAGNOSTIC STRIP TEST SCH ×2 (17:48→20:49)
[2019-11-14] MEDS: INSULIN LISPRO 100 UNITS/ML SUBCUT SCH ×2 (17:50→21:00)
[2019-11-14] MEDS ORDERED: ONDANSETRON HCL 4MG/2ML INJ IV PRN (19:30)
[2019-11-14] MEDS ORDERED: DIPHENHYDRAMINE 50MG/ML VIAL IV PRN (19:30)
[2019-11-14] MEDS ORDERED: GUAIFENESIN 200MG/10ML SUGAR FREE UDC PO PRN (19:30)
[2019-11-14] MEDS ORDERED: IPRATROPIUM/ALBUTEROL 0.5-3(2.5)MG/3ML NEB HHN PRN (19:30)
[2019-11-14] MEDS ORDERED: ACETAMINOPHEN 325MG TABLET PO PRN (19:30)
[2019-11-14] MEDS ORDERED: MAGNESIUM/ALUMINUM HYDROXIDE/SIMETHICONE 30ML UDC PO PRN (19:30)
[2019-11-14 20:00] VITALS: BP 133/79
[2019-11-14] MEDS: DILTIAZEM HCL 30MG TABLET PO SCH ×2 (21:25→21:28)
[2019-11-14] MEDS: AMIODARONE HCL 200 MG TABLET PO SCH ×2 (21:25→21:28)
[2019-11-14] MEDS: TRAZODONE HCL 50MG TABLET PO SCH (21:25)
[2019-11-14] MEDS: SODIUM CHLORIDE 0.9% INJ 3ML FLUSH IVF SCH (21:26)
[2019-11-15] VITALS (7 sets, daily range): BP systolic 123–172; BP diastolic 71–83
[2019-11-15] MEDS: DILTIAZEM HCL 30MG TABLET PO SCH ×3 (05:12→21:39)
[2019-11-15] MEDS: SODIUM CHLORIDE 0.9% INJ 3ML FLUSH IVF SCH ×3 (05:13→21:37)
[2019-11-15] MEDS: TRAMADOL 50MG TABLET PO PRN ×2 (06:12→20:42)
[2019-11-15] MEDS: BLOOD SUGAR DIAGNOSTIC STRIP TEST SCH ×4 (06:22→21:37)
[2019-11-15 08:14] LABS: CHLORIDE 105 mEq/L (98-107)
[2019-11-15 08:23] LABS: PHOSPHORUS 3.2 mg/dL (2.5-4.9)
[2019-11-15] MEDS: INSULIN LISPRO 100 UNITS/ML SUBCUT SCH ×4 (08:48→21:37)
[2019-11-15] MEDS: AMIODARONE HCL 200 MG TABLET PO SCH ×2 (08:50→21:37)
[2019-11-15] MEDS: APIXABAN 5 MG TABLET PO SCH ×2 (08:51→17:22)
[2019-11-15] MEDS: METFORMIN HCL 500MG TABLET PO SCH ×2 (08:51→17:22)
[2019-11-15] MEDS: POTASSIUM CHLORIDE 20MEQ TABLET SR PO SCH (08:51)
[2019-11-15] MEDS: FUROSEMIDE 40MG/4ML VIAL IVP SCH (08:51)
[2019-11-15] MEDS: ASPIRIN 81MG EC TABLET PO SCH (08:51)
[2019-11-15] MEDS ORDERED: KETOROLAC 30MG/ML VIAL IV PRN (21:00)
[2019-11-15] MEDS: TRAZODONE HCL 50MG TABLET PO SCH (21:37)
[2019-11-16] VITALS: BP 123/64
[2019-11-16 04:00] VITALS: BP 124/69
[2019-11-16] MEDS: SODIUM CHLORIDE 0.9% INJ 3ML FLUSH IVF SCH ×2 (05:05→13:03)
[2019-11-16] MEDS: DILTIAZEM HCL 30MG TABLET PO SCH ×2 (05:05→13:02)
[2019-11-16] MEDS: BLOOD SUGAR DIAGNOSTIC STRIP TEST SCH ×2 (06:30→12:11)
[2019-11-16 08:00] VITALS: BP 117/73
[2019-11-16] MEDS: INSULIN LISPRO 100 UNITS/ML SUBCUT SCH ×2 (08:21→12:52)
[2019-11-16] MEDS: ASPIRIN 81MG EC TABLET PO SCH (08:22)
[2019-11-16] MEDS: APIXABAN 5 MG TABLET PO SCH (08:22)
[2019-11-16] MEDS: METFORMIN HCL 500MG TABLET PO SCH (08:22)
[2019-11-16] MEDS: AMIODARONE HCL 200 MG TABLET PO SCH (08:22)
[2019-11-16] MEDS: FUROSEMIDE 40MG/4ML VIAL IVP SCH (08:22)
[2019-11-16] MEDS: POTASSIUM CHLORIDE 20MEQ TABLET SR PO SCH (08:22)
[2019-11-16 12:00] VITALS: BP 126/66
[2019-11-16 15:39] VITALS: BP 126/66
[2019-11-16 16:44] VITALS: BP 141/79
== END 2019-11-16 16:55 | disposition home or self-care (01) | DRG 194 ==
LOC: ER 17:19 → 6WST 11-14 09:20 → EDBEDREQ 11-14 09:33 → EDBEDREQTM 11-14 09:33 → ENRESERV 11-14 10:46 → 6WST 11-14 12:10
PROVIDERS: ADMIT Internal Medicine; ATTEND Internal Medicine
DX: I11.0 Hypertensive heart disease with heart failure (principal); I27.20 Pulmonary hypertension, unspecified; I07.1 Rheumatic tricuspid insufficiency; I42.9 Cardiomyopathy, unspecified; I50.23 Acute on chronic systolic (congestive) heart failure; E11.9 Type 2 diabetes mellitus without complications; F32.9 Major depressive disorder, single episode, unspecified; I48.0 Paroxysmal atrial fibrillation; J44.9 Chronic obstructive pulmonary disease, unspecified; Z82.49 Family history of ischemic heart disease and other diseases of the circulatory system; Z83.3 Family history of diabetes mellitus; Z87.11 Personal history of peptic ulcer disease; Z87.891 Personal history of nicotine dependence; Z91.19 Patient's noncompliance with other medical treatment and regimen; Z79.899 Other long term (current) drug therapy; Z79.82 Long term (current) use of aspirin; Z79.84 Long term (current) use of oral hypoglycemic drugs; Z90.49 Acquired absence of other specified parts of digestive tract; I25.2 Old myocardial infarction
CPT/HCPCS: 36415; 71045; 80048; 80053; 82962; 83735; 83880; 84100; 84484; 85025; 93005; 93306; 93971; 96374; 97162; 99285; J1815; J1885; J1940; J2270

== ENCOUNTER 2019-11-28 16:59 | Emergency (ER) | payer MEDICARE, MEDICAID ==
[~2019-11-28] VITALS: Ht 167.6 cm; Wt 77.0 kg
[2019-11-28 20:28] LABS: CLARITY URINE CLEAR (CLEAR); COLOR URINE YELLOW (YELLOW); KETONES URINE NEGATIVE (NEGATIVE); LEUKOCYTE ESTERASE URINE NEGATIVE (NEGATIVE); NITRITE URINE NEGATIVE (NEGATIVE); OCCULT BLOOD URINE NEGATIVE (NEGATIVE); PROTEIN URINE NEGATIVE (NEGATIVE); SPECIFIC GRAVITY URINE 1.015 (1.005-1.030); UROBILINOGEN URINE 0.2 E.U./dL (0.2-1.0)
[2019-11-28] MEDS ORDERED: LIDOCAINE HCL 1% 20ML VIAL (Pyxis) INJ INFIL ONE (21:45)
[2019-11-28] MEDS ORDERED: CEFTRIAXONE SODIUM 250 MG/VIAL IM ONE (21:45)
[2019-11-28 22:14] VITALS: BP 129/71
== END 2019-11-28 22:15 | disposition home or self-care (01) ==
LOC: ER 16:59
DX: N45.1 Epididymitis (principal); N43.2 Other hydrocele; N44.2 Benign cyst of testis; I10 Essential (primary) hypertension
CPT/HCPCS: 76870; 81003; 93976; 96372; 99284; J0696; J3490

== ENCOUNTER 2020-01-01 19:03 | Inpatient (IN) | payer MEDICARE, MEDICAID ==
[~2020-01-01] VITALS: Ht 170.2 cm; Wt 90.7 kg
[2020-01-01] MEDS ORDERED: ASPIRIN 81MG TABLET PO ONE (20:15)
[2020-01-01 20:34] LABS: BASOPHILS % 1.2 % (0.0-2.0); EOSINOPHILS % 2.9 % (0.0-5.0); HEMOGLOBIN. 14.2 g/dL (14.0-18.0); LYMPHOCYTES % 20.6 % (20.0-50.0); MEAN CORPUSCULAR HEMOGLOBIN 29.9 pg (28.0-32.0); MEAN CORPUSCULAR VOLUME 88.3 fL (80.0-94.0); MEAN PLATELET VOLUME 9.8 fl (7.4-10.4); MONOCYTES % 8.6 % (2.0-8.0); NEUTROPHILS % 66.7 % (40.0-76.0); PLATELET 173 x1000/uL (130-400); RED BLOOD CELL COUNT 4.75 mill/uL (4.7-6.1); RED CELL DISTRIBUTION WIDTH 14.5 % (11.6-14.6)
[2020-01-01 20:44] LABS: CHLORIDE 103 mEq/L (98-107)
[2020-01-01 20:47] LABS: D-DIMER 0.27 mg/L FEU (<0.50); PARTIAL THROMBOPLASTIN TIME 28.2 sec (23.4-31.0); PROTHROMBIN TIME 10.9 sec (9.6-11.0)
[2020-01-01] MEDS ORDERED: OSELTAMIVIR 75MG CAPSULE PO ONE (22:45)
[2020-01-02] MEDS ORDERED: CEFTRIAXONE 1 G PREMIX 50 ML IV ONE (00:45)
[2020-01-02] MEDS ORDERED: CLOTRIMAZOLE 1% CREAM 30GM TOP SCH (09:00)
[2020-01-02] MEDS ORDERED: DEXTROSE 50% WATER 50ML SYRINGE IV PRN (09:30)
[2020-01-02] MEDS ORDERED: ACETAMINOPHEN 325MG TABLET PO PRN (09:30)
[2020-01-02 10:00] VITALS: BP 136/80
[2020-01-02 10:20] VITALS: BP 154/82
[2020-01-02] MEDS ORDERED: IPRATROPIUM/ALBUTEROL 0.5-3(2.5)MG/3ML NEB HHN PRN (11:45)
[2020-01-02 12:00] VITALS: BP 145/80
[2020-01-02] MEDS: AMIODARONE HCL 200 MG TABLET PO SCH ×2 (12:00→22:07)
[2020-01-02] MEDS: BLOOD SUGAR DIAGNOSTIC STRIP TEST SCH ×3 (12:40→21:00)
[2020-01-02] MEDS: DILTIAZEM HCL 180MG CAPSULE CD 24HR PO SCH (12:50)
[2020-01-02] MEDS: INSULIN LISPRO 100 UNITS/ML SUBCUT SCH ×3 (13:17→22:11)
[2020-01-02 16:00] VITALS: BP 141/67
[2020-01-02] MEDS: BUDESONIDE 0.5MG/2ML NEB HHN SCH ×2 (16:45→20:04)
[2020-01-02] MEDS: IPRATROPIUM/ALBUTEROL 0.5-3(2.5)MG/3ML NEB HHN SCH ×2 (16:45→20:05)
[2020-01-02] MEDS: APIXABAN 5 MG TABLET PO SCH ×2 (18:40→22:07)
[2020-01-02] MEDS: CLINDAMYCIN 600MG PREMIX 50 ML IV SCH ×2 (19:02→22:07)
[2020-01-02 20:00] VITALS: BP 163/84
[2020-01-02] MEDS: MORPHINE SULFATE 2 MG/ML CPJ (NOT FOR IM USE) IV PRN (22:37)
[2020-01-02] MEDS: ONDANSETRON HCL 4MG/2ML INJ IV PRN (23:42)
[2020-01-03] VITALS: BP 151/84
[2020-01-03] MEDS: IPRATROPIUM/ALBUTEROL 0.5-3(2.5)MG/3ML NEB HHN SCH ×7 (00:16→21:01)
[2020-01-03 02:03] LABS: CLARITY URINE CLEAR (CLEAR); COLOR URINE YELLOW (YELLOW); KETONES URINE NEGATIVE (NEGATIVE); LEUKOCYTE ESTERASE URINE 1+ (NEGATIVE); NITRITE URINE NEGATIVE (NEGATIVE); OCCULT BLOOD URINE 3+ (NEGATIVE); PROTEIN URINE NEGATIVE (NEGATIVE); SPECIFIC GRAVITY URINE 1.012 (1.005-1.030); UROBILINOGEN URINE 0.2 E.U./dL (0.2-1.0)
[2020-01-03 02:19] LABS: *AMPHETAMINES SCREEN URINE NEGATIVE (NEGATIVE); *BARBITURATES SCREEN URINE NEGATIVE (NEGATIVE); *BENZODIAZEPINES SCREEN URINE NEGATIVE (NEGATIVE); *COCAINE SCREEN URINE NEGATIVE (NEGATIVE); METHADONE URINE SCREEN NEGATIVE (NEGATIVE); OPIATES URINE SCREEN PRESUMTIVE POSITIVE (NEGATIVE)
[2020-01-03 02:20] LABS: CANNABINOID URINE SCREEN NEGATIVE (NEGATIVE); PHENCYCLIDINE URINE SCREEN NEGATIVE (NEGATIVE)
[2020-01-03] MEDS: MORPHINE SULFATE 2 MG/ML CPJ (NOT FOR IM USE) IV PRN ×4 (03:31→21:56)
[2020-01-03 04:00] VITALS: BP 142/75
[2020-01-03] MEDS: CLINDAMYCIN 600MG PREMIX 50 ML IV SCH (05:29)
[2020-01-03 05:47] LABS: CHLORIDE 105 mEq/L (98-107)
[2020-01-03 06:21] LABS: BASOPHILS % 0.9 % (0.0-2.0); EOSINOPHILS % 2.1 % (0.0-5.0); HEMATOCRIT. 41.2 % (42.0-52.0); HEMOGLOBIN. 14.1 g/dL (14.0-18.0); LYMPHOCYTES % 21.7 % (20.0-50.0); MEAN CORPUSCULAR VOLUME 87.8 fL (80.0-94.0); MEAN PLATELET VOLUME 9.6 fl (7.4-10.4); MONOCYTES % 8.8 % (2.0-8.0); NEUTROPHILS % 66.5 % (40.0-76.0); PLATELET 155 x1000/uL (130-400); RED BLOOD CELL COUNT 4.69 mill/uL (4.7-6.1); RED CELL DISTRIBUTION WIDTH 14.3 % (11.6-14.6)
[2020-01-03] MEDS: BLOOD SUGAR DIAGNOSTIC STRIP TEST SCH ×4 (07:40→21:40)
[2020-01-03 08:00] VITALS: BP 124/66
[2020-01-03] MEDS: BUDESONIDE 0.5MG/2ML NEB HHN SCH ×2 (08:29→21:01)
[2020-01-03] MEDS: DILTIAZEM HCL 180MG CAPSULE CD 24HR PO SCH (08:49)
[2020-01-03] MEDS: AMIODARONE HCL 200 MG TABLET PO SCH ×2 (08:50→21:01)
[2020-01-03] MEDS: INSULIN LISPRO 100 UNITS/ML SUBCUT SCH ×4 (09:03→21:43)
[2020-01-03] MEDS: APIXABAN 5 MG TABLET PO SCH ×2 (10:29→18:50)
[2020-01-03 12:00] VITALS: BP 121/64
[2020-01-03 16:45] VITALS: BP 147/71
[2020-01-03] MEDS: PREDNISONE 20MG TABLET PO SCH (18:49)
[2020-01-03 20:00] VITALS: BP 149/79
[2020-01-03] MEDS: INSULIN GLARGINE UD 100 UNITS/ML SYR SUBCUT SCH (21:43)
[2020-01-04] VITALS: BP 133/64
[2020-01-04] MEDS ORDERED: ACETAMINOPHEN 500MG TABLET PO PRN
[2020-01-04] MEDS: IPRATROPIUM/ALBUTEROL 0.5-3(2.5)MG/3ML NEB HHN SCH ×5 (01:36→21:18)
[2020-01-04 04:00] VITALS: BP 149/69
[2020-01-04] MEDS: MORPHINE SULFATE 2 MG/ML CPJ (NOT FOR IM USE) IV PRN ×4 (05:24→23:11)
[2020-01-04] MEDS: BLOOD SUGAR DIAGNOSTIC STRIP TEST SCH ×4 (07:40→20:31)
[2020-01-04] MEDS: INSULIN LISPRO 100 UNITS/ML SUBCUT SCH ×4 (07:58→20:33)
[2020-01-04 08:00] VITALS: BP 147/76
[2020-01-04] MEDS: AMIODARONE HCL 200 MG TABLET PO SCH ×2 (08:13→20:32)
[2020-01-04] MEDS: DILTIAZEM HCL 180MG CAPSULE CD 24HR PO SCH (08:13)
[2020-01-04] MEDS: APIXABAN 5 MG TABLET PO SCH ×2 (08:13→16:59)
[2020-01-04] MEDS: PREDNISONE 20MG TABLET PO SCH ×2 (08:13→17:01)
[2020-01-04] MEDS: BUDESONIDE 0.5MG/2ML NEB HHN SCH ×2 (10:12→21:18)
[2020-01-04] MEDS: INSULIN GLARGINE UD 100 UNITS/ML SYR SUBCUT SCH ×2 (10:54→21:22)
[2020-01-04 12:02] VITALS: BP 137/70
[2020-01-04] MEDS ORDERED: MED4 MT (13:00)
[2020-01-04] MEDS ORDERED: LACTULOSE 20G/30ML UDC PO NR (13:15)
[2020-01-04] MEDS ORDERED: IPRA3AMP9 NEB (13:35)
[2020-01-04] MEDS: ONDANSETRON HCL 4MG/2ML INJ IV PRN ×2 (14:37→22:48)
[2020-01-04 16:00] VITALS: BP 141/80
[2020-01-05] VITALS: BP 144/93
[2020-01-05] MEDS: IPRATROPIUM/ALBUTEROL 0.5-3(2.5)MG/3ML NEB HHN SCH ×4 (01:36→12:00)
[2020-01-05 04:00] VITALS: BP 151/96
[2020-01-05] MEDS: BLOOD SUGAR DIAGNOSTIC STRIP TEST SCH ×2 (07:40→12:40)
[2020-01-05 08:00] VITALS: BP 140/82
[2020-01-05] MEDS: INSULIN LISPRO 100 UNITS/ML SUBCUT SCH ×2 (08:10→13:17)
[2020-01-05] MEDS ORDERED: NA PHOS,M-B/NA PHOS,DI-BA ENEMA 118ML PR SCH (09:00)
[2020-01-05] MEDS ORDERED: DOCUSATE SODIUM 250MG CAPSULE PO SCH (09:00)
[2020-01-05] MEDS ORDERED: SORBITOL 70% SOLN 30ML PO SCH (09:00)
[2020-01-05] MEDS: DILTIAZEM HCL 180MG CAPSULE CD 24HR PO SCH (09:02)
[2020-01-05] MEDS: AMIODARONE HCL 200 MG TABLET PO SCH (09:02)
[2020-01-05] MEDS: PREDNISONE 20MG TABLET PO SCH (09:03)
[2020-01-05] MEDS: APIXABAN 5 MG TABLET PO SCH (09:03)
[2020-01-05] MEDS: INSULIN GLARGINE UD 100 UNITS/ML SYR SUBCUT SCH (11:00)
[2020-01-05] MEDS ORDERED: BISACODYL 10MG SUPP PR SCH (11:30)
[2020-01-05 12:00] VITALS: BP 136/80
[2020-01-05 16:00] VITALS: BP 141/85
[2020-01-06] MEDS ORDERED: PREDNISONE 20MG TABLET PO SCH (09:00)
== END 2020-01-05 16:46 | disposition home or self-care (01) | DRG 140 ==
LOC: ER 19:03 → 7WST 01-02 00:07 → ENRESERV 01-02 07:14
PROVIDERS: ADMIT Internal Medicine; ATTEND Internal Medicine
DX: J44.1 Chronic obstructive pulmonary disease with (acute) exacerbation (principal); J96.00 Acute respiratory failure, unspecified whether with hypoxia or hypercapnia; E87.1 Hypo-osmolality and hyponatremia; I48.0 Paroxysmal atrial fibrillation; E11.9 Type 2 diabetes mellitus without complications; E66.9 Obesity, unspecified; J06.9 Acute upper respiratory infection, unspecified; N47.2 Paraphimosis; Z79.01 Long term (current) use of anticoagulants; Z86.718 Personal history of other venous thrombosis and embolism; Z87.891 Personal history of nicotine dependence; I10 Essential (primary) hypertension; K59.00 Constipation, unspecified; Z82.49 Family history of ischemic heart disease and other diseases of the circulatory system; Z83.3 Family history of diabetes mellitus
CPT/HCPCS: 36415; 71045; 80048; 80053; 80305; 81003; 82962; 83880; 84145; 84484; 85025; 85379; 87804; 93005; 93306; 93970; 94640; 96365; 97116; 97162; 99285; J0696; J1815; J2270; J2405; J3490; J7512; J7626

== ENCOUNTER 2020-09-06 16:04 | Inpatient (IN) | payer MEDICARE, OTHER ==
[~2020-09-06] VITALS: Ht 165.1 cm; Wt 92.7 kg
[~2020-09-06 16:04] MED LIST changes: +AMLO5TAB4 PO; +DICY20TA11 PO; +FERR325T6 PO; +IPRA3AMP9 NEB; +MED4 MT; +METO-293 PO; +PROC10TA13 PO; +RANI150T7 PO; +VITA1TAB20 PO
[2020-09-06 17:28] LABS: EOSINOPHILS % 3.4 % (0.0-5.0); HEMATOCRIT. 44.8 % (42.0-52.0); HEMOGLOBIN. 15.1 g/dL (14.0-18.0); LYMPHOCYTES % 20.5 % (20.0-50.0); MEAN CORPUSCULAR HEMOGLOBIN 30.2 pg (28.0-32.0); MEAN CORPUSCULAR VOLUME 89.6 fL (80.0-94.0); MEAN PLATELET VOLUME 9.7 fl (7.4-10.4); MONOCYTES % 7.1 % (2.0-8.0); PLATELET 213 x1000/uL (130-400); RED CELL DISTRIBUTION WIDTH 14.1 % (11.6-14.6)
[2020-09-06] MEDS ORDERED: MORPHINE SULFATE 4 MG/ML CPJ (NOT FOR IM USE) IV ONE ×2 (17:30→18:30)
[2020-09-06 17:34] LABS: CHLORIDE 104 mEq/L (98-107)
[2020-09-06 17:47] LABS: CLARITY URINE CLEAR (CLEAR); COLOR URINE YELLOW (YELLOW); KETONES URINE NEGATIVE (NEGATIVE); LEUKOCYTE ESTERASE URINE NEGATIVE (NEGATIVE); NITRITE URINE NEGATIVE (NEGATIVE); OCCULT BLOOD URINE NEGATIVE (NEGATIVE); PH URINE 5.5 (4.5-8.0); PROTEIN URINE NEGATIVE (NEGATIVE); PROTHROMBIN TIME 10.5 sec (9.6-11.0); SPECIFIC GRAVITY URINE 1.012 (1.005-1.030)
[2020-09-06] MEDS ORDERED: IOHEXOL-350 100 ML BOTTLE ONE (19:40)
[2020-09-06 22:50] VITALS: BP 111/57
[2020-09-06 23:19] VITALS: BP 111/57
[2020-09-07] VITALS (19 sets, daily range): BP systolic 100–124; BP diastolic 51–84
[2020-09-07] MEDS ORDERED: DEXTROSE 50% WATER 50ML SYRINGE IV PRN (00:30)
[2020-09-07] MEDS: HYDROMORPHONE HCL/PF 2MG/ML CPJ IV PRN ×2 (00:53→08:20)
[2020-09-07] MEDS: DEXT 5%/0.45% NACL 1000ML 1,000 ML IV SCH ×2 (01:52→11:26)
[2020-09-07] MEDS: ONDANSETRON HCL 4MG/2ML INJ IV PRN ×3 (01:53→19:24)
[2020-09-07] MEDS: INSULIN LISPRO 100 UNITS/ML SUBCUT SCH ×2 (05:45→12:00)
[2020-09-07] MEDS: BLOOD SUGAR DIAGNOSTIC STRIP TEST SCH ×2 (05:45→12:37)
[2020-09-07] MEDS ORDERED: BLOOD SUGAR DIAGNOSTIC STRIP TEST SCH (06:00)
[2020-09-07 06:07] LABS: EOSINOPHILS % 3.4 % (0.0-5.0); HEMOGLOBIN. 13.3 g/dL (14.0-18.0); LYMPHOCYTES % 20.3 % (20.0-50.0); MEAN CORPUSCULAR HEMOGLOBIN 30.5 pg (28.0-32.0); MEAN PLATELET VOLUME 9.2 fl (7.4-10.4); MONOCYTES % 9.2 % (2.0-8.0); NEUTROPHILS % 66.1 % (40.0-76.0); PLATELET 171 x1000/uL (130-400); RED BLOOD CELL COUNT 4.38 mill/uL (4.7-6.1); RED CELL DISTRIBUTION WIDTH 14.1 % (11.6-14.6)
[2020-09-07 06:09] LABS: CHLORIDE 107 mEq/L (98-107)
[2020-09-07] MEDS: PANTOPRAZOLE SODIUM 40 MG/VIAL IV SCH (08:20)
[2020-09-07] MEDS ORDERED: INFLUENZA VACCINE 05/PF 0.5 ML VIAL IM ONE (12:00)
[2020-09-07] MEDS ORDERED: MORPHINE SULFATE/PF 1MG/ML 10ML AMP ONE (13:07)
[2020-09-07] MEDS ORDERED: MIDAZOLAM HCL 2 MG/2 ML VIAL ONE ×2 (13:26→14:00)
[2020-09-07] MEDS ORDERED: FENTANYL CITRATE/PF 50MCG/ML 2ML VIAL ONE ×2 (13:26→14:19)
[2020-09-07] MEDS ORDERED: PROPOFOL 200MG/20ML VIAL IV ONE (13:26)
[2020-09-07] MEDS ORDERED: ONDANSETRON HCL 4MG/2ML INJ ONE (13:28)
[2020-09-07] MEDS ORDERED: DEXAMETHASONE 4MG/ML 1ML VIAL ONE (13:28)
[2020-09-07] MEDS ORDERED: IODIXANOL 320MG/ML 200ML BOTTLE ONE (13:32)
[2020-09-07] MEDS ORDERED: LIDOCAINE HCL 1% 20ML VIAL (Pyxis) INJ ONE ×2 (13:32→15:21)
[2020-09-07] MEDS ORDERED: IOHEXOL-300 100 ML BOTTLE ONE (13:33)
[2020-09-07] MEDS ORDERED: IODIXANOL 320MG/ML 100 ML BOTTLE IV ONE (13:40)
[2020-09-07] MEDS: DEXT 5%/0.45% NACL KCL 20MEQ/L 1,000 ML IV SCH (14:30)
[2020-09-07 14:33] LABS: HEMATOCRIT 39.4 % (42.0-52.0); HEMOGLOBIN 13.2 g/dL (14.0-18.0); MEAN CORPUSCULAR HEMOGLOBIN 29.9 pg (28.0-32.0); MEAN CORPUSCULAR VOLUME 89.1 fL (80.0-94.0); PLATELET 180 x1000/uL (130-400); RED BLOOD CELL COUNT 4.42 mill/uL (4.7-6.1)
[2020-09-07] MEDS ORDERED: LABETALOL 5MG/ML SYR 20 MG/4 ML SYRINGE IV PRN (14:45)
[2020-09-07] MEDS ORDERED: MEPERIDINE HCL/PF 25MG/ML CPJ IV PRN (14:45)
[2020-09-07] MEDS ORDERED: HYDROMORPHONE HCL/PF 2MG/ML CPJ IV PRN (14:45)
[2020-09-07] MEDS ORDERED: ONDANSETRON HCL 4MG/2ML INJ IV PRN (14:45)
[2020-09-07] MEDS ORDERED: HEPARIN 1000 UNITS/ML 10ML ONE (15:21)
[2020-09-07] MEDS ORDERED: SODIUM CHLORIDE 0.9% 10ML VIAL ONE (15:21)
[2020-09-07] MEDS ORDERED: CEFAZOLIN SODIUM 1000MG/VIAL ONE (15:21)
[2020-09-07] MEDS ORDERED: PROTAMINE SULFATE 10MG/ML VIAL 5ML IV ONE (15:21)
[2020-09-07 18:54] LABS: HEMATOCRIT 40.5 % (42.0-52.0); HEMOGLOBIN 13.7 g/dL (14.0-18.0)
[2020-09-07 18:57] LABS: CHLORIDE 107 mEq/L (98-107)
[2020-09-07 19:05] LABS: CREATINE KINASE 53 IU/L (39-308)
[2020-09-07 19:08] LABS: CREATINE KINASE MB FRACTION < 1.0 ng/mL (0.5-3.6)
[2020-09-08] VITALS (34 sets, daily range): BP systolic 93–132; BP diastolic 54–79
[2020-09-08] MEDS: DEXT 5%/0.45% NACL KCL 20MEQ/L 1,000 ML IV SCH (01:32)
[2020-09-08 05:57] LABS: BASOPHILS % 0.4 % (0.0-2.0); EOSINOPHILS % 2.1 % (0.0-5.0); HEMATOCRIT. 36.9 % (42.0-52.0); HEMOGLOBIN. 12.4 g/dL (14.0-18.0); LYMPHOCYTES % 10.5 % (20.0-50.0); MEAN CORPUSCULAR HEMOGLOBIN 30.2 pg (28.0-32.0); MEAN CORPUSCULAR VOLUME 90.1 fL (80.0-94.0); MEAN PLATELET VOLUME 9.5 fl (7.4-10.4); PLATELET 151 x1000/uL (130-400); RED CELL DISTRIBUTION WIDTH 14.1 % (11.6-14.6)
[2020-09-08 06:05] LABS: CHLORIDE 106 mEq/L (98-107)
[2020-09-08] MEDS: BLOOD SUGAR DIAGNOSTIC STRIP TEST SCH ×5 (07:30→20:51)
[2020-09-08] MEDS: INSULIN LISPRO 100 UNITS/ML SUBCUT SCH ×6 (07:30→20:47)
[2020-09-08] MEDS: PANTOPRAZOLE SODIUM 40 MG/VIAL IV SCH (08:34)
[2020-09-08] MEDS: HYDROMORPHONE HCL/PF 2MG/ML CPJ IV PRN (11:27)
[2020-09-08 13:31] LABS: BG BASE EXCESS -0.2 mmol/L (-2.0-2.0); BG CARBOXYHEMOGLOBIN 0.4 % (0.5-1.5); BG DEOXYHEMOGLOBIN 4.1 % (0.0-5.0); BG FRACTION INSPIRED OXYGEN 21; BG HCO3 ACT 24.5 mmol/L (22.0-26.0); BG METHEMOGLOBIN 0.1 % (0.0-1.5); BG OXYGEN SATURATION 95.9 % (92.0-98.5); BG OXYHEMOGLOBIN 95.4 % (94.0-97.0); BG PCO2 40.6 mmHg (35.0-45.0); BG PH 7.399 (7.350-7.450); BG PO2 79.4 mmHg (75.0-100.0); BG SAMPLE SITE RIGHT RADIAL; BG VENT MODE ROOM AIR
[2020-09-08] MEDS: HYDROCODONE/ACETAMINOPHEN 10/325MG TABLET PO PRN (16:00)
[2020-09-08] MEDS: ONDANSETRON HCL 4MG/2ML INJ IV PRN ×2 (16:00→22:45)
[2020-09-09] VITALS (9 sets, daily range): BP systolic 104–127; BP diastolic 51–72
[2020-09-09] MEDS: HYDROCODONE/ACETAMINOPHEN 10/325MG TABLET PO PRN (02:14)
[2020-09-09 05:42] LABS: BASOPHILS % 0.7 % (0.0-2.0); EOSINOPHILS % 2.1 % (0.0-5.0); HEMATOCRIT. 34.9 % (42.0-52.0); HEMOGLOBIN. 11.8 g/dL (14.0-18.0); LYMPHOCYTES % 13.2 % (20.0-50.0); MEAN CORPUSCULAR HEMOGLOBIN 30.5 pg (28.0-32.0); MEAN CORPUSCULAR VOLUME 89.7 fL (80.0-94.0); MEAN PLATELET VOLUME 9.6 fl (7.4-10.4); MONOCYTES % 9.5 % (2.0-8.0); NEUTROPHILS % 74.5 % (40.0-76.0); PLATELET 139 x1000/uL (130-400); RED BLOOD CELL COUNT 3.89 mill/uL (4.7-6.1)
[2020-09-09 05:57] LABS: CHLORIDE 105 mEq/L (98-107)
[2020-09-09] MEDS: BLOOD SUGAR DIAGNOSTIC STRIP TEST SCH ×2 (06:37→12:38)
[2020-09-09] MEDS: INSULIN LISPRO 100 UNITS/ML SUBCUT SCH ×2 (06:37→13:34)
[2020-09-09] MEDS: PANTOPRAZOLE SODIUM 40 MG/VIAL IV SCH (08:48)
[2020-09-09] MEDS ORDERED: HYDR-4001 MT ×2 (14:41→14:42)
== END 2020-09-09 15:20 | disposition home health service (06) | DRG 182 ==
LOC: ER 16:04 → EDBEDREQSVC 21:14 → EDBEDREQ 21:14 → 5EST 21:38 → ENRESERV 21:50 → CVICU 09-07 21:20 → 3WST 09-08 11:15
PROVIDERS: ADMIT Internal Medicine; ATTEND Internal Medicine
PROC: 04V03DZ Restriction of Abdominal Aorta with Intraluminal Device, Percutaneous Approach (ICD-10-PCS; principal; 2020-09-07)
PROC: B3101ZZ Fluoroscopy of Thoracic Aorta using Low Osmolar Contrast (ICD-10-PCS; 2020-09-07)
DX: I71.3 Abdominal aortic aneurysm, ruptured (principal); I72.3 Aneurysm of iliac artery; I48.91 Unspecified atrial fibrillation; J44.1 Chronic obstructive pulmonary disease with (acute) exacerbation; E78.5 Hyperlipidemia, unspecified; Z20.828 Contact with and (suspected) exposure to other viral communicable diseases; I10 Essential (primary) hypertension; E11.65 Type 2 diabetes mellitus with hyperglycemia; D71 Functional disorders of polymorphonuclear neutrophils; Z79.01 Long term (current) use of anticoagulants; Z79.899 Other long term (current) drug therapy; Z79.82 Long term (current) use of aspirin; Z82.49 Family history of ischemic heart disease and other diseases of the circulatory system; Z83.3 Family history of diabetes mellitus; Z86.12 Personal history of poliomyelitis
CPT/HCPCS: 36415; 36600; 74174; 75630; 76700; 80048; 80053; 80076; 81003; 82375; 82550; 82553; 82805; 82962; 83036; 84484; 85014; 85018; 85025; 85027; 85347; 86850; 86900; 87426; 90686; 93005; 93306; 99285; C1760; C1769; C1874; C1887; C1893; C9113; J0690; J1100; J1170; J1644; J1815; J2250; J2270; J2274; J2405; J2704; J2720; J3010; J3490; Q9967; A4315

== ENCOUNTER 2020-09-14 22:09 | Inpatient (IN) | payer MEDICARE, OTHER ==
[~2020-09-14] VITALS: Ht 165.1 cm; Wt 92.1 kg
[~2020-09-14 22:09] MED LIST changes: -AMLO5TAB4 PO; -ASPI-1158 PO; +HYDR-4001 MT; -METO-293 PO; -PROC10TA13 PO; -VITA1TAB20 PO
[2020-09-14] MEDS ORDERED: MORPHINE SULFATE 4 MG/ML CPJ (NOT FOR IM USE) IV STA (23:24)
[2020-09-14] MEDS ORDERED: ONDANSETRON HCL 4MG/2ML INJ IV STA (23:24)
[2020-09-14] MEDS ORDERED: SODIUM CHLORIDE 0.9% 1,000 ML IV ONE (23:30)
[2020-09-15 00:19] LABS: BASOPHILS % 1.2 % (0.0-2.0); EOSINOPHILS % 3.3 % (0.0-5.0); HEMATOCRIT. 36.6 % (42.0-52.0); HEMOGLOBIN. 12.4 g/dL (14.0-18.0); LYMPHOCYTES % 22.1 % (20.0-50.0); MEAN CORPUSCULAR HEMOGLOBIN 29.9 pg (28.0-32.0); MEAN CORPUSCULAR VOLUME 88.5 fL (80.0-94.0); MEAN PLATELET VOLUME 9.3 fl (7.4-10.4); MONOCYTES % 8.5 % (2.0-8.0); NEUTROPHILS % 64.9 % (40.0-76.0); PLATELET 225 x1000/uL (130-400); RED BLOOD CELL COUNT 4.14 mill/uL (4.7-6.1)
[2020-09-15 00:26] LABS: CHLORIDE 101 mEq/L (98-107)
[2020-09-15 00:56] LABS: CLARITY URINE CLEAR (CLEAR); COLOR URINE YELLOW (YELLOW); KETONES URINE NEGATIVE (NEGATIVE); LEUKOCYTE ESTERASE URINE NEGATIVE (NEGATIVE); NITRITE URINE NEGATIVE (NEGATIVE); OCCULT BLOOD URINE NEGATIVE (NEGATIVE); PH URINE 5.5 (4.5-8.0); PROTEIN URINE NEGATIVE (NEGATIVE); SPECIFIC GRAVITY URINE 1.011 (1.005-1.030); UROBILINOGEN URINE 0.2 E.U./dL (0.2-1.0)
[2020-09-15] MEDS ORDERED: CEFTRIAXONE 1 G PREMIX 50 ML IV ONE (01:00)
[2020-09-15] MEDS ORDERED: AZITHROMYCIN 500 MG in DEXT 5% WATER 250 ML IV ONE (01:00)
[2020-09-15] MEDS ORDERED: IOHEXOL-350 100 ML BOTTLE ONE (01:03)
[2020-09-15 01:41] LABS: PARTIAL THROMBOPLASTIN TIME 31.3 sec (23.4-31.0); PROTHROMBIN TIME 10.9 sec (9.6-11.0)
[2020-09-15 08:00] VITALS: BP 130/62
[2020-09-15] MEDS ORDERED: DOCUSATE SODIUM 100MG CAPSULE PO PRN (10:15)
[2020-09-15] MEDS ORDERED: GUAIFENESIN 200MG/10ML SUGAR FREE UDC PO PRN (10:15)
[2020-09-15] MEDS ORDERED: DEXTROSE 50% WATER 50ML SYRINGE IV PRN (10:15)
[2020-09-15] MEDS ORDERED: ONDANSETRON HCL 4MG/2ML INJ IV PRN (10:15)
[2020-09-15] MEDS ORDERED: ACETAMINOPHEN 650MG SUPP PR PRN (10:15)
[2020-09-15] MEDS ORDERED: LORAZEPAM 0.5MG TABLET PO PRN (10:15)
[2020-09-15] MEDS ORDERED: MAGNESIUM/ALUMINUM HYDROXIDE/SIMETHICONE 30ML UDC PO PRN (10:15)
[2020-09-15] MEDS ORDERED: CLONIDINE 0.1MG TABLET PO PRN (10:15)
[2020-09-15] MEDS ORDERED: NA PHOS,M-B/NA PHOS,DI-BA ENEMA 118ML PR PRN (10:15)
[2020-09-15] MEDS ORDERED: PIPERACILLIN/TAZOBACTAM 3.375 G in DEXT 5% WATER 100 ML IV SCH (10:15)
[2020-09-15] MEDS ORDERED: ACETAMINOPHEN 650MG/20.3ML UDC GT PRN (10:15)
[2020-09-15] MEDS ORDERED: DIPHENHYDRAMINE 50MG/ML VIAL IV PRN (10:15)
[2020-09-15] MEDS ORDERED: HYDROCODONE/ACETAMINOPHEN 5/325MG TABLET PO PRN (10:15)
[2020-09-15] MEDS ORDERED: DILT180C85 PO (10:21)
[2020-09-15] MEDS ORDERED: LISI-604 PO (10:21)
[2020-09-15] MEDS ORDERED: OMEP20TA15 PO (10:21)
[2020-09-15] MEDS ORDERED: FURO-152 PO (10:21)
[2020-09-15] MEDS ORDERED: ATOR10TA PO (10:21)
[2020-09-15] MEDS ORDERED: METF-815 PO (10:21)
[2020-09-15] MEDS ORDERED: APIX5TAB PO (10:21)
[2020-09-15] MEDS ORDERED: TRAZ-251 PO (10:21)
[2020-09-15] MEDS: MORPHINE SULFATE 2 MG/ML CPJ (NOT FOR IM USE) IV PRN ×2 (10:47→18:14)
[2020-09-15] MEDS: BLOOD SUGAR DIAGNOSTIC STRIP TEST SCH ×3 (11:33→20:42)
[2020-09-15 12:00] VITALS: BP 114/69
[2020-09-15 12:06] LABS: EOSINOPHILS % 3.2 % (0.0-5.0); HEMATOCRIT. 35.1 % (42.0-52.0); HEMOGLOBIN. 11.9 g/dL (14.0-18.0); LYMPHOCYTES % 16.6 % (20.0-50.0); MEAN CORPUSCULAR VOLUME 88.9 fL (80.0-94.0); MEAN PLATELET VOLUME 8.6 fl (7.4-10.4); MONOCYTES % 8.3 % (2.0-8.0); NEUTROPHILS % 70.9 % (40.0-76.0); PLATELET 225 x1000/uL (130-400); RED BLOOD CELL COUNT 3.95 mill/uL (4.7-6.1)
[2020-09-15] MEDS: INSULIN LISPRO 100 UNITS/ML SUBCUT SCH ×3 (12:10→20:46)
[2020-09-15 13:15] LABS: CHLORIDE 105 mEq/L (98-107)
[2020-09-15] MEDS: PIPERACILLIN/TAZOBACTAM 3.375 G in DEXT 5% WATER 100 ML IV SCH ×2 (13:28→18:18)
[2020-09-15 16:00] VITALS: BP 129/69
[2020-09-15 16:20] LABS: CREATINE KINASE 84 IU/L (39-308)
[2020-09-15 16:22] LABS: CREATINE KINASE MB FRACTION 1.2 ng/mL (0.5-3.6)
[2020-09-15 20:00] VITALS: BP 150/75
[2020-09-15] MEDS: FAMOTIDINE 20MG TABLET PO SCH (20:45)
[2020-09-16] MEDS: PIPERACILLIN/TAZOBACTAM 3.375 G in DEXT 5% WATER 100 ML IV SCH ×4 (00:43→18:03)
[2020-09-16 00:46] VITALS: BP 136/81
[2020-09-16 01:22] LABS: CREATINE KINASE 67 IU/L (39-308); CREATINE KINASE MB FRACTION < 1.0 ng/mL (0.5-3.6)
[2020-09-16 04:00] VITALS: BP 129/78
[2020-09-16 06:09] LABS: BASOPHILS % 1.3 % (0.0-2.0); EOSINOPHILS % 4.3 % (0.0-5.0); HEMATOCRIT. 34.7 % (42.0-52.0); HEMOGLOBIN. 11.7 g/dL (14.0-18.0); LYMPHOCYTES % 14.9 % (20.0-50.0); MEAN CORPUSCULAR HEMOGLOBIN 30.1 pg (28.0-32.0); MEAN CORPUSCULAR VOLUME 88.9 fL (80.0-94.0); MEAN PLATELET VOLUME 8.9 fl (7.4-10.4); MONOCYTES % 11.4 % (2.0-8.0); NEUTROPHILS % 68.1 % (40.0-76.0); PLATELET 215 x1000/uL (130-400); RED BLOOD CELL COUNT 3.91 mill/uL (4.7-6.1)
[2020-09-16] MEDS: BLOOD SUGAR DIAGNOSTIC STRIP TEST SCH ×4 (06:12→21:00)
[2020-09-16] MEDS: MORPHINE SULFATE 2 MG/ML CPJ (NOT FOR IM USE) IV PRN ×4 (06:12→22:07)
[2020-09-16 06:21] LABS: CHLORIDE 105 mEq/L (98-107)
[2020-09-16 06:34] LABS: HDL CHOLESTEROL 28 mg/dL (40-59); T4 FREE 1.46 ng/dL (0.76-1.46)
[2020-09-16 06:35] LABS: LDL CHOLESTEROL 56 mg/dL (5-100)
[2020-09-16 08:00] VITALS: BP 155/85
[2020-09-16] MEDS: INSULIN LISPRO 100 UNITS/ML SUBCUT SCH ×4 (09:25→22:01)
[2020-09-16 12:00] VITALS: BP 134/65
[2020-09-16 14:45] LABS: HEMATOCRIT 35.4 % (42.0-52.0); HEMOGLOBIN 12.1 g/dL (14.0-18.0)
[2020-09-16 15:22] LABS: HEPATITIS B SURFACE ANTIGEN NEGATIVE
[2020-09-16 15:51] LABS: HEPATITIS A AB IGM NEGATIVE (NEGATIVE)
[2020-09-16 16:00] VITALS: BP 112/61
[2020-09-16 20:00] VITALS: BP 140/80
[2020-09-16] MEDS: FAMOTIDINE 20MG TABLET PO SCH (22:00)
[2020-09-17 00:52] VITALS: BP 129/55
[2020-09-17] MEDS: PIPERACILLIN/TAZOBACTAM 3.375 G in DEXT 5% WATER 100 ML IV SCH ×3 (01:13→12:04)
[2020-09-17 04:00] VITALS: BP 121/67
[2020-09-17 06:02] LABS: BASOPHILS % 1.1 % (0.0-2.0); EOSINOPHILS % 5.7 % (0.0-5.0); HEMATOCRIT. 35.3 % (42.0-52.0); HEMOGLOBIN. 12.2 g/dL (14.0-18.0); LYMPHOCYTES % 18.9 % (20.0-50.0); MEAN CORPUSCULAR HEMOGLOBIN 30.7 pg (28.0-32.0); MEAN CORPUSCULAR VOLUME 89.1 fL (80.0-94.0); MEAN PLATELET VOLUME 8.4 fl (7.4-10.4); MONOCYTES % 10.2 % (2.0-8.0); NEUTROPHILS % 64.1 % (40.0-76.0); PLATELET 250 x1000/uL (130-400); RED BLOOD CELL COUNT 3.97 mill/uL (4.7-6.1); RED CELL DISTRIBUTION WIDTH 14.2 % (11.6-14.6)
[2020-09-17] MEDS: MORPHINE SULFATE 2 MG/ML CPJ (NOT FOR IM USE) IV PRN (06:39)
[2020-09-17] MEDS: BLOOD SUGAR DIAGNOSTIC STRIP TEST SCH ×2 (06:49→12:04)
[2020-09-17 07:14] LABS: CHLORIDE 105 mEq/L (98-107)
[2020-09-17 08:15] VITALS: BP 121/69
[2020-09-17] MEDS: INSULIN LISPRO 100 UNITS/ML SUBCUT SCH ×2 (08:27→12:05)
[2020-09-17 12:17] VITALS: BP 148/72
[2020-09-17 15:45] VITALS: BP 148/72
== END 2020-09-17 16:45 | disposition home or self-care (01) | DRG 861 ==
LOC: ER 22:09 → 7EST 09-15 04:08 → ENRESERV 09-15 04:31 → 6WST 09-15 22:32
PROVIDERS: ADMIT Internal Medicine; ATTEND Internal Medicine
DX: G89.18 Other acute postprocedural pain (principal); E87.1 Hypo-osmolality and hyponatremia; K40.90 Unilateral inguinal hernia, without obstruction or gangrene, not specified as recurrent; K76.0 Fatty (change of) liver, not elsewhere classified; R16.0 Hepatomegaly, not elsewhere classified; J84.10 Pulmonary fibrosis, unspecified; K83.8 Other specified diseases of biliary tract; I48.91 Unspecified atrial fibrillation; I71.4 Abdominal aortic aneurysm, without rupture; Z20.828 Contact with and (suspected) exposure to other viral communicable diseases; R33.9 Retention of urine, unspecified; I10 Essential (primary) hypertension; E78.5 Hyperlipidemia, unspecified; I25.10 Atherosclerotic heart disease of native coronary artery without angina pectoris; K44.9 Diaphragmatic hernia without obstruction or gangrene; K21.9 Gastro-esophageal reflux disease without esophagitis; D64.9 Anemia, unspecified; J44.9 Chronic obstructive pulmonary disease, unspecified; Z86.79 Personal history of other diseases of the circulatory system; Z79.891 Long term (current) use of opiate analgesic; Z79.899 Other long term (current) drug therapy; Z79.01 Long term (current) use of anticoagulants; Z82.49 Family history of ischemic heart disease and other diseases of the circulatory system; Z83.3 Family history of diabetes mellitus; Z90.49 Acquired absence of other specified parts of digestive tract; Z86.12 Personal history of poliomyelitis; Z87.11 Personal history of peptic ulcer disease; E11.9 Type 2 diabetes mellitus without complications
CPT/HCPCS: 36415; 71045; 74018; 74174; 76700; 76857; 80053; 80061; 81003; 82550; 82553; 82962; 83036; 83605; 83880; 84439; 84443; 84450; 84460; 84484; 85014; 85018; 85025; 86705; 86709; 86803; 86850; 86900; 87340; 93005; 96374; 99285; C1893; J0456; J0696; J1815; J2270; J2405; J2543; J7030; J7060; Q9967; U0003

== ENCOUNTER 2020-10-28 18:05 | Emergency (ER) | payer MEDICARE, MEDICAID ==
[~2020-10-28] VITALS: Ht 165.1 cm; Wt 88.0 kg
[~2020-10-28 18:05] MED LIST changes: -APIX5TAB MT; +ATOR10TA PO; +DOCU-138 MT; +FURO-152 PO; -FURO40TA5 PO; -MED4 MT; +OMEP20TA15 PO; +PANT40SU MT
[2020-10-28 20:37] LABS: BASOPHILS % 1.3 % (0.0-2.0); EOSINOPHILS % 2.3 % (0.0-5.0); HEMOGLOBIN. 12.7 g/dL (14.0-18.0); LYMPHOCYTES % 20.2 % (20.0-50.0); MEAN CORPUSCULAR HEMOGLOBIN 29.3 pg (28.0-32.0); MEAN CORPUSCULAR VOLUME 87.5 fL (80.0-94.0); MEAN PLATELET VOLUME 9.4 fl (7.4-10.4); MONOCYTES % 8.7 % (2.0-8.0); NEUTROPHILS % 67.5 % (40.0-76.0); PLATELET 197 x1000/uL (130-400); RED BLOOD CELL COUNT 4.34 mill/uL (4.7-6.1); RED CELL DISTRIBUTION WIDTH 13.6 % (11.6-14.6)
[2020-10-28 20:42] LABS: CHLORIDE 104 mEq/L (98-107)
[2020-10-28] MEDS ORDERED: FUROSEMIDE 20MG TABLET PO ONE (21:15)
[2020-10-28] MEDS ORDERED: POTASSIUM CHLORIDE 20MEQ TABLET SR PO ONE (21:15)
[2020-10-28 21:45] VITALS: BP 157/75
== END 2020-10-28 21:48 | disposition home or self-care (01) ==
LOC: ER 18:05
DX: R60.9 Edema, unspecified (principal); I48.91 Unspecified atrial fibrillation; I10 Essential (primary) hypertension; J44.9 Chronic obstructive pulmonary disease, unspecified; E11.9 Type 2 diabetes mellitus without complications; Z79.899 Other long term (current) drug therapy; Z90.49 Acquired absence of other specified parts of digestive tract; Z98.890 Other specified postprocedural states
CPT/HCPCS: 36415; 71045; 80053; 83880; 84484; 85025; 93005; 99285

== ENCOUNTER 2020-12-04 15:11 | Emergency (ER) | payer MEDICARE, MEDICAID ==
[~2020-12-04] VITALS: Ht 165.1 cm; Wt 87.0 kg
[2020-12-04] MEDS ORDERED: ONDANSETRON HCL 4MG/2ML INJ IV STA (15:36)
[2020-12-04] MEDS ORDERED: MORPHINE SULFATE 4 MG/ML CPJ (NOT FOR IM USE) IV STA (15:36)
[2020-12-04] MEDS ORDERED: SODIUM CHLORIDE 0.9% 1,000 ML IV ONE (15:45)
[2020-12-04 16:55] LABS: BASOPHILS % 1.1 % (0.0-2.0); HEMATOCRIT. 39.6 % (42.0-52.0); HEMOGLOBIN. 13.2 g/dL (14.0-18.0); LYMPHOCYTES % 21.6 % (20.0-50.0); MEAN PLATELET VOLUME 10.3 fl (7.4-10.4); MONOCYTES % 7.1 % (2.0-8.0); NEUTROPHILS % 67.2 % (40.0-76.0); PLATELET 176 x1000/uL (130-400); RED BLOOD CELL COUNT 4.56 mill/uL (4.7-6.1); RED CELL DISTRIBUTION WIDTH 14.1 % (11.6-14.6)
[2020-12-04 17:02] LABS: CHLORIDE 103 mEq/L (98-107)
[2020-12-04 17:04] LABS: PROTHROMBIN TIME 10.7 sec (9.6-11.0)
[2020-12-04 18:07] LABS: CLARITY URINE CLEAR (CLEAR); COLOR URINE OTHER (YELLOW); KETONES URINE NEGATIVE (NEGATIVE); LEUKOCYTE ESTERASE URINE NEGATIVE (NEGATIVE); NITRITE URINE NEGATIVE (NEGATIVE); OCCULT BLOOD URINE NEGATIVE (NEGATIVE); PH URINE 5.5 (4.5-8.0); PROTEIN URINE NEGATIVE (NEGATIVE); SPECIFIC GRAVITY URINE 1.006 (1.005-1.030); UROBILINOGEN URINE 0.2 E.U./dL (0.2-1.0)
[2020-12-04 18:27] VITALS: BP 119/66
== END 2020-12-04 18:39 | disposition home or self-care (01) ==
LOC: ER 15:11
DX: R10.9 Unspecified abdominal pain (principal); E11.65 Type 2 diabetes mellitus with hyperglycemia; R11.2 Nausea with vomiting, unspecified; J44.9 Chronic obstructive pulmonary disease, unspecified; I10 Essential (primary) hypertension; I48.91 Unspecified atrial fibrillation; Z79.899 Other long term (current) drug therapy; Z90.49 Acquired absence of other specified parts of digestive tract; Z98.890 Other specified postprocedural states
CPT/HCPCS: 36415; 71045; 74176; 80053; 81003; 83690; 84484; 85025; 85610; 93005; 96361; 96374; 96375; 99285; J2270; J2405; J7030

== ENCOUNTER 2020-12-16 20:37 | Inpatient (IN) | payer MEDICARE, MEDICAID ==
[~2020-12-16] VITALS: Ht 175.3 cm; Wt 88.0 kg
[2020-12-16] MEDS ORDERED: MORPHINE SULFATE 2 MG/ML CPJ (NOT FOR IM USE) IV ONE (22:45)
[2020-12-16] MEDS ORDERED: ONDANSETRON HCL 4MG/2ML INJ IV ONE (22:45)
[2020-12-17] LABS: BASOPHILS % 1.3 % (0.0-2.0); EOSINOPHILS % 4.2 % (0.0-5.0); HEMATOCRIT. 38.3 % (42.0-52.0); HEMOGLOBIN. 12.7 g/dL (14.0-18.0); LYMPHOCYTES % 19.8 % (20.0-50.0); MEAN CORPUSCULAR HEMOGLOBIN 28.4 pg (28.0-32.0); MEAN CORPUSCULAR VOLUME 85.6 fL (80.0-94.0); MEAN PLATELET VOLUME 8.9 fl (7.4-10.4); MONOCYTES % 8.4 % (2.0-8.0); NEUTROPHILS % 66.3 % (40.0-76.0); PLATELET 177 x1000/uL (130-400); RED BLOOD CELL COUNT 4.47 mill/uL (4.7-6.1); RED CELL DISTRIBUTION WIDTH 14.5 % (11.6-14.6)
[2020-12-17 00:06] LABS: CHLORIDE 105 mEq/L (98-107)
[2020-12-17 00:09] LABS: PROTHROMBIN TIME 11.2 sec (9.6-11.0)
[2020-12-17] MEDS ORDERED: IOHEXOL 350 MG/ML 200ML INFUS..BTL IV ONE (07:15)
[2020-12-17 12:00] VITALS: BP 151/73
[2020-12-17] MEDS ORDERED: DOCUSATE SODIUM 100MG CAPSULE PO PRN (12:00)
[2020-12-17] MEDS: HYDROCODONE/ACETAMINOPHEN 5/325MG TABLET PO PRN (12:35)
[2020-12-17] MEDS: DICYCLOMINE HCL 20MG TABLET PO SCH ×3 (12:37→21:05)
[2020-12-17] MEDS: DILTIAZEM HCL 180MG CAPSULE CD 24HR PO SCH (12:37)
[2020-12-17 16:00] VITALS: BP_SYST 107; BP_SYST 112; BP_DIAS 68; BP_DIAS 70
[2020-12-17] MEDS ORDERED: PANTOPRAZOLE SODIUM 40 MG/VIAL IV SCH (17:00)
[2020-12-17 20:00] VITALS: BP 135/66
[2020-12-17] MEDS: ATORVASTATIN CALCIUM 10MG TABLET PO SCH (21:05)
[2020-12-17] MEDS: PANTOPRAZOLE SODIUM 40 MG/VIAL IV SCH (21:05)
[2020-12-18] VITALS (17 sets, daily range): BP systolic 117–152; BP diastolic 62–86
[2020-12-18] MEDS: BLOOD SUGAR DIAGNOSTIC STRIP TEST SCH ×4 (06:08→20:14)
[2020-12-18] MEDS ORDERED: DEXTROSE 50% WATER 50ML SYRINGE IV PRN (07:30)
[2020-12-18] MEDS: INSULIN LISPRO 100 UNITS/ML SUBCUT SCH ×4 (07:34→20:25)
[2020-12-18] MEDS: DILTIAZEM HCL 180MG CAPSULE CD 24HR PO SCH (10:17)
[2020-12-18] MEDS: DICYCLOMINE HCL 20MG TABLET PO SCH ×4 (10:17→20:20)
[2020-12-18] MEDS: PANTOPRAZOLE SODIUM 40 MG/VIAL IV SCH (10:17)
[2020-12-18] MEDS: AMLODIPINE 5MG TABLET PO SCH (10:22)
[2020-12-18] MEDS: HYDROCODONE/ACETAMINOPHEN 5/325MG TABLET PO PRN (11:48)
[2020-12-18] MEDS ORDERED: LIDOCAINE HCL 1% 20ML VIAL (Pyxis) INJ ONE (12:18)
[2020-12-18] MEDS ORDERED: HEPARIN SODIUM 1,000 UNIT/1ML VIAL IV ONE (12:19)
[2020-12-18] MEDS ORDERED: BACITRACIN 50,000 UNITS/VIAL ONE (12:19)
[2020-12-18] MEDS ORDERED: THROMBIN (BOVINE) 5000 UNITS/VIAL TOP ONE (12:19)
[2020-12-18] MEDS ORDERED: BUPIVACAINE HCL/PF 0.5% (5MG/ML) 10ML ONE (12:19)
[2020-12-18] MEDS ORDERED: NICARDIPINE 50 MG in SODIUM CHLORIDE 0.9% 230 ML IV PRN (13:30)
[2020-12-18] MEDS ORDERED: HYDROMORPHONE HCL/PF 2MG/ML (OR) ONE (13:45)
[2020-12-18] MEDS ORDERED: CEFAZOLIN SODIUM 1000MG/VIAL ONE (13:49)
[2020-12-18] MEDS ORDERED: DEXAMETHASONE 4MG/ML 1ML VIAL ONE (13:49)
[2020-12-18] MEDS ORDERED: GLYCOPYRROLATE 0.2 MG/ML 2ML VIAL ONE (13:58)
[2020-12-18] MEDS ORDERED: ALBUMIN HUMAN 25GM/100ML (25%) IV ONE (14:36)
[2020-12-18] MEDS ORDERED: BACITRACIN 15GM TUBE TOP ONE (14:48)
[2020-12-18] MEDS: ATORVASTATIN CALCIUM 10MG TABLET PO SCH (20:19)
[2020-12-18] MEDS: FAMOTIDINE 20MG TABLET PO SCH (20:20)
[2020-12-19] VITALS (27 sets, daily range): BP systolic 118–170; BP diastolic 66–122
[2020-12-19] MEDS: MORPHINE SULFATE 2 MG/ML CPJ (NOT FOR IM USE) IV PRN (01:11)
[2020-12-19 06:30] LABS: BASOPHILS % 0.2 % (0.0-2.0); HEMATOCRIT. 39.4 % (42.0-52.0); HEMOGLOBIN. 13.4 g/dL (14.0-18.0); LYMPHOCYTES % 8.4 % (20.0-50.0); MEAN CORPUSCULAR VOLUME 85.3 fL (80.0-94.0); MEAN PLATELET VOLUME 9.5 fl (7.4-10.4); MONOCYTES % 3.1 % (2.0-8.0); NEUTROPHILS % 88.3 % (40.0-76.0); PLATELET 180 x1000/uL (130-400); RED BLOOD CELL COUNT 4.62 mill/uL (4.7-6.1); RED CELL DISTRIBUTION WIDTH 14.2 % (11.6-14.6)
[2020-12-19 06:34] LABS: CHLORIDE 104 mEq/L (98-107)
[2020-12-19] MEDS: MORPHINE SULFATE 4 MG/ML CPJ (NOT FOR IM USE) IV PRN ×2 (06:40→14:08)
[2020-12-19] MEDS: BLOOD SUGAR DIAGNOSTIC STRIP TEST SCH ×4 (07:53→20:16)
[2020-12-19] MEDS: DICYCLOMINE HCL 20MG TABLET PO SCH ×4 (08:33→20:13)
[2020-12-19] MEDS: FAMOTIDINE 20MG TABLET PO SCH ×2 (08:33→20:13)
[2020-12-19] MEDS: AMLODIPINE 5MG TABLET PO SCH (08:33)
[2020-12-19] MEDS: DILTIAZEM HCL 180MG CAPSULE CD 24HR PO SCH (08:34)
[2020-12-19] MEDS: INSULIN LISPRO 100 UNITS/ML SUBCUT SCH ×4 (08:34→20:16)
[2020-12-19] MEDS: AMIODARONE HCL 200 MG TABLET PO SCH (12:41)
[2020-12-19] MEDS: ATORVASTATIN CALCIUM 10MG TABLET PO SCH (20:13)
[2020-12-20] VITALS: BP 128/66
[2020-12-20 04:00] VITALS: BP 129/88
[2020-12-20] MEDS: BLOOD SUGAR DIAGNOSTIC STRIP TEST SCH ×2 (05:46→12:21)
[2020-12-20] MEDS: MORPHINE SULFATE 2 MG/ML CPJ (NOT FOR IM USE) IV PRN (05:51)
[2020-12-20 07:02] LABS: CHLORIDE 103 mEq/L (98-107)
[2020-12-20 07:04] LABS: BASOPHILS % 0.3 % (0.0-2.0); EOSINOPHILS % 0.4 % (0.0-5.0); HEMATOCRIT. 39.5 % (42.0-52.0); HEMOGLOBIN. 13.3 g/dL (14.0-18.0); LYMPHOCYTES % 13.2 % (20.0-50.0); MEAN CORPUSCULAR HEMOGLOBIN 29.1 pg (28.0-32.0); MEAN CORPUSCULAR VOLUME 86.5 fL (80.0-94.0); MEAN PLATELET VOLUME 9.9 fl (7.4-10.4); MONOCYTES % 8.3 % (2.0-8.0); NEUTROPHILS % 77.8 % (40.0-76.0); PLATELET 197 x1000/uL (130-400); RED BLOOD CELL COUNT 4.56 mill/uL (4.7-6.1); RED CELL DISTRIBUTION WIDTH 14.4 % (11.6-14.6)
[2020-12-20] MEDS ORDERED: DILTIAZEM HCL 120MG CAPSULE CD 24HR PO SCH (09:00)
[2020-12-20] MEDS: INSULIN LISPRO 100 UNITS/ML SUBCUT SCH ×2 (09:19→12:35)
[2020-12-20] MEDS: AMIODARONE HCL 200 MG TABLET PO SCH (09:20)
[2020-12-20] MEDS: FAMOTIDINE 20MG TABLET PO SCH (09:20)
[2020-12-20] MEDS: DICYCLOMINE HCL 20MG TABLET PO SCH ×2 (09:20→12:45)
[2020-12-20] MEDS: MORPHINE SULFATE 4 MG/ML CPJ (NOT FOR IM USE) IV PRN (11:32)
[2020-12-20] MEDS ORDERED: CLOP-31 MT (14:11)
[2020-12-20] MEDS ORDERED: HYDR-4001 MT (14:11)
[2020-12-20] MEDS ORDERED: ASPI-1497 MT (14:11)
[2020-12-20] MEDS ORDERED: CLOPIDOGREL 75MG TABLET PO SCH (14:30)
[2020-12-20] MEDS ORDERED: ASPIRIN 81MG TABLET PO SCH (14:30)
[2020-12-20 16:51] VITALS: BP 118/67
== END 2020-12-20 17:30 | disposition home health service (06) | DRG 24 ==
LOC: ER 20:37 → 8WST 12-17 01:58 → ENRESERV 12-17 07:24 → CVICU 12-18 15:05 → 8WST 12-19 14:58
PROVIDERS: ADMIT Internal Medicine; ATTEND Internal Medicine
PROC: 03CL0ZZ Extirpation of Matter from Left Internal Carotid Artery, Open Approach (ICD-10-PCS; principal; 2020-12-18)
PROC: 03CJ0ZZ Extirpation of Matter from Left Common Carotid Artery, Open Approach (ICD-10-PCS; 2020-12-18)
PROC: 03CN0ZZ Extirpation of Matter from Left External Carotid Artery, Open Approach (ICD-10-PCS; 2020-12-18)
DX: I65.23 Occlusion and stenosis of bilateral carotid arteries (principal); I10 Essential (primary) hypertension; E78.5 Hyperlipidemia, unspecified; I48.91 Unspecified atrial fibrillation; D64.9 Anemia, unspecified; E11.51 Type 2 diabetes mellitus with diabetic peripheral angiopathy without gangrene; K76.0 Fatty (change of) liver, not elsewhere classified; R79.89 Other specified abnormal findings of blood chemistry; J84.10 Pulmonary fibrosis, unspecified; Z20.822 Contact with and (suspected) exposure to COVID-19; I47.1 Supraventricular tachycardia; Z79.84 Long term (current) use of oral hypoglycemic drugs; Z79.899 Other long term (current) drug therapy; Z82.49 Family history of ischemic heart disease and other diseases of the circulatory system; Z83.3 Family history of diabetes mellitus; Z95.2 Presence of prosthetic heart valve; Z86.79 Personal history of other diseases of the circulatory system; Z86.12 Personal history of poliomyelitis
CPT/HCPCS: 36415; 70496; 70498; 71045; 80048; 80053; 82962; 83036; 85025; 86850; 86900; 87426; 88304; 88311; 93005; 96374; 99285; C9113; J0690; J1100; J1170; J1644; J1815; J2270; J2405; J3490; P9047; Q9967

== ENCOUNTER 2021-03-07 19:21 | Emergency (ER) | payer MEDICARE, MEDICAID ==
[~2021-03-07] VITALS: Ht 172.7 cm; Wt 82.0 kg
[~2021-03-07 19:21] MED LIST changes: +ASPI-1497 MT; +CLOP-31 MT; -DILT180C87 MT
[2021-03-07] MEDS ORDERED: METOCLOPRAMIDE HCL 10MG/2ML VIAL IV STA (22:02)
[2021-03-07] MEDS ORDERED: FAMOTIDINE 20MG/2ML VIAL IV STA (22:02)
[2021-03-07] MEDS ORDERED: SODIUM CHLORIDE 0.9% 1,000 ML IV ONE (22:15)
[2021-03-07 22:40] LABS: BASOPHILS % 1.1 % (0.0-2.0); EOSINOPHILS % 3.8 % (0.0-5.0); HEMATOCRIT. 42.1 % (42.0-52.0); HEMOGLOBIN. 14.6 g/dL (14.0-18.0); LYMPHOCYTES % 23.4 % (20.0-50.0); MEAN CORPUSCULAR HEMOGLOBIN 29.7 pg (28.0-32.0); MEAN CORPUSCULAR VOLUME 85.5 fL (80.0-94.0); MEAN PLATELET VOLUME 9.5 fl (7.4-10.4); MONOCYTES % 8.1 % (2.0-8.0); NEUTROPHILS % 63.6 % (40.0-76.0); PLATELET 204 x1000/uL (130-400); RED BLOOD CELL COUNT 4.92 mill/uL (4.7-6.1); RED CELL DISTRIBUTION WIDTH 15.4 % (11.6-14.6)
[2021-03-07 22:42] LABS: CHLORIDE 99 mEq/L (98-107)
[2021-03-07 22:45] LABS: PROTHROMBIN TIME 10.5 sec (9.6-11.0)
[2021-03-07 22:55] LABS: CLARITY URINE CLEAR (CLEAR); COLOR URINE YELLOW (YELLOW); KETONES URINE NEGATIVE (NEGATIVE); LEUKOCYTE ESTERASE URINE NEGATIVE (NEGATIVE); NITRITE URINE NEGATIVE (NEGATIVE); OCCULT BLOOD URINE NEGATIVE (NEGATIVE); PH URINE 5.5 (4.5-8.0); PROTEIN URINE NEGATIVE (NEGATIVE); SPECIFIC GRAVITY URINE 1.012 (1.005-1.030); UROBILINOGEN URINE 0.2 E.U./dL (0.2-1.0)
[2021-03-08] MEDS ORDERED: ONDANSETRON HCL 4MG/2ML INJ IV ONE
[2021-03-08] MEDS ORDERED: MORPHINE SULFATE 2 MG/ML CPJ (NOT FOR IM USE) IV ONE
[2021-03-08] MEDS ORDERED: FAMO-135 MT (02:18)
[2021-03-08 03:20] VITALS: BP 110/62
== END 2021-03-08 03:31 | disposition home or self-care (01) ==
LOC: ER 19:21
DX: R10.13 Epigastric pain (principal); R11.2 Nausea with vomiting, unspecified; J44.1 Chronic obstructive pulmonary disease with (acute) exacerbation; E11.9 Type 2 diabetes mellitus without complications; I48.91 Unspecified atrial fibrillation; I10 Essential (primary) hypertension; Z79.899 Other long term (current) drug therapy
CPT/HCPCS: 36415; 74176; 80053; 81003; 83605; 83690; 84484; 85025; 85610; 93005; 96361; 96374; 96375; 99285; J2270; J2405; J2765; J3490; J7030

== ENCOUNTER → 2022-01-24 | Outpatient (CLI) | payer MEDICARE, MEDICAID ==
[~2022-01-24] MED LIST changes: +FAMO-135 MT
== END | disposition home or self-care (01) ==
LOC: RAD 11:47
PROVIDERS: ATTEND General Practice
DX: M47.817 Spondylosis without myelopathy or radiculopathy, lumbosacral region (principal)
CPT/HCPCS: 72110

== ENCOUNTER 2022-03-25 20:34 | Inpatient (IN) | payer MEDICARE, MEDICAID ==
[~2022-03-25] VITALS: Ht 170.2 cm; Wt 90.7 kg
[~2022-03-25 20:34] MED LIST changes: -DICY20TA11 PO; +DICY20TA2 PO
[2022-03-25] MEDS ORDERED: ASPIRIN 81MG TABLET PO ONE (21:45)
[2022-03-25 22:45] LABS: CLARITY URINE CLEAR (CLEAR); COLOR URINE YELLOW (YELLOW); KETONES URINE NEGATIVE (NEGATIVE); LEUKOCYTE ESTERASE URINE NEGATIVE (NEGATIVE); NITRITE URINE NEGATIVE (NEGATIVE); OCCULT BLOOD URINE NEGATIVE (NEGATIVE); PROTEIN URINE NEGATIVE (NEGATIVE); SPECIFIC GRAVITY URINE 1.008 (1.005-1.030)
[2022-03-25 22:48] LABS: CHLORIDE 111 mEq/L (98-107)
[2022-03-26 00:05] LABS: BASOPHILS % 0.8 % (0.0-2.0); EOSINOPHILS % 2.6 % (0.0-5.0); HEMATOCRIT. 38.9 % (42.0-52.0); HEMOGLOBIN. 12.5 g/dL (14.0-18.0); LYMPHOCYTES % 33.5 % (20.0-50.0); MEAN CORPUSCULAR HEMOGLOBIN 26.6 pg (28.0-32.0); MEAN PLATELET VOLUME 8.9 fl (7.4-10.4); MONOCYTES % 8.9 % (2.0-8.0); NEUTROPHILS % 54.2 % (40.0-76.0); PLATELET 206 x1000/uL (130-400); RED BLOOD CELL COUNT 4.68 mill/uL (4.7-6.1)
[2022-03-26] MEDS ORDERED: DILTIAZEM HCL 5MG/ML 5ML VIAL IV SCH (01:00)
[2022-03-26] MEDS ORDERED: IBUPROFEN 600MG TABLET PO SCH (01:15)
[2022-03-26 11:14] VITALS: BP 135/66
[2022-03-26 12:00] VITALS: BP 126/66
[2022-03-26] MEDS ORDERED: AMIODARONE HCL 200 MG TABLET PO SCH (13:45)
[2022-03-26] MEDS ORDERED: ONDANSETRON HCL 4MG/2ML INJ IV PRN (13:45)
[2022-03-26] MEDS: PANTOPRAZOLE SODIUM 40 MG/VIAL IV SCH (14:31)
[2022-03-26] MEDS: FUROSEMIDE 40MG/4ML VIAL IVP SCH (14:32)
[2022-03-26] MEDS: ENOXAPARIN 100MG/ML SYR SUBCUT SCH ×2 (14:32→21:21)
[2022-03-26 16:00] VITALS: BP 138/92
[2022-03-26] MEDS ORDERED: DILTIAZEM HCL 5MG/ML 5ML VIAL IV PRN (17:15)
[2022-03-26 20:13] VITALS: BP 113/83
[2022-03-26] MEDS ORDERED: DEXTROSE 50% WATER 50ML SYRINGE IV PRN (20:30)
[2022-03-26] MEDS: AMIODARONE HCL 200 MG TABLET PO SCH (21:14)
[2022-03-26] MEDS: TRAZODONE HCL 50MG TABLET PO SCH (21:14)
[2022-03-26] MEDS: ATORVASTATIN CALCIUM 10MG TABLET PO SCH (21:14)
[2022-03-26] MEDS: ACETAMINOPHEN 325MG TABLET PO PRN (21:15)
[2022-03-26] MEDS: DILTIAZEM HCL 30MG TABLET PO SCH (21:15)
[2022-03-26] MEDS: BLOOD SUGAR DIAGNOSTIC STRIP TEST SCH (21:21)
[2022-03-26] MEDS: INSULIN LISPRO 100 UNITS/ML SUBCUT SCH (21:21)
[2022-03-27] VITALS: BP 102/60
[2022-03-27 03:16] LABS: INR 1.1; PROTHROMBIN TIME 12.1 sec (9.6-11.0)
[2022-03-27 03:45] LABS: CREATINE KINASE 51 IU/L (39-308); CREATINE KINASE MB FRACTION < 1.0 ng/mL (0.5-3.6)
[2022-03-27 04:00] VITALS: BP 119/81
[2022-03-27] MEDS: AMIODARONE HCL 200 MG TABLET PO SCH ×3 (05:32→21:33)
[2022-03-27] MEDS: BLOOD SUGAR DIAGNOSTIC STRIP TEST SCH ×4 (05:47→21:35)
[2022-03-27 06:26] LABS: BASOPHILS % 0.9 % (0.0-2.0); EOSINOPHILS % 4.2 % (0.0-5.0); HEMATOCRIT. 36.5 % (42.0-52.0); HEMOGLOBIN. 12.1 g/dL (14.0-18.0); LYMPHOCYTES % 31.3 % (20.0-50.0); MEAN CORPUSCULAR HEMOGLOBIN 27.3 pg (28.0-32.0); MEAN CORPUSCULAR VOLUME 82.5 fL (80.0-94.0); MEAN PLATELET VOLUME 9.1 fl (7.4-10.4); MONOCYTES % 9.2 % (2.0-8.0); NEUTROPHILS % 54.4 % (40.0-76.0); PLATELET 191 x1000/uL (130-400); RED BLOOD CELL COUNT 4.42 mill/uL (4.7-6.1); RED CELL DISTRIBUTION WIDTH 14.8 % (11.6-14.6)
[2022-03-27 06:43] LABS: CHLORIDE 107 mEq/L (98-107)
[2022-03-27 07:03] LABS: HDL CHOLESTEROL 27 mg/dL (40-59); LDL CHOLESTEROL 72 mg/dL (5-100)
[2022-03-27] MEDS: INSULIN LISPRO 100 UNITS/ML SUBCUT SCH ×4 (07:50→21:35)
[2022-03-27 08:00] VITALS: BP 120/76
[2022-03-27] MEDS: DILTIAZEM HCL 30MG TABLET PO SCH ×4 (11:02→21:34)
[2022-03-27] MEDS: AMLODIPINE 5MG TABLET PO SCH (11:02)
[2022-03-27] MEDS: ASPIRIN 81MG EC TABLET PO SCH (11:02)
[2022-03-27] MEDS: CLOPIDOGREL 75MG TABLET PO SCH (11:02)
[2022-03-27] MEDS: ENOXAPARIN 100MG/ML SYR SUBCUT SCH ×2 (11:03→21:35)
[2022-03-27 12:00] VITALS: BP 111/87
[2022-03-27] MEDS: PANTOPRAZOLE SODIUM 40 MG/VIAL IV SCH (14:30)
[2022-03-27] MEDS: FUROSEMIDE 40MG/4ML VIAL IVP SCH (14:30)
[2022-03-27 16:00] VITALS: BP 136/87
[2022-03-27] MEDS: NITROGLYCERIN 0.4MG TABLET SL SL PRN ×3 (19:54→20:07)
[2022-03-27 20:00] VITALS: BP_SYST 107; BP_SYST 99; BP_DIAS 51; BP_DIAS 63
[2022-03-27] MEDS: TRAZODONE HCL 50MG TABLET PO SCH (21:34)
[2022-03-27] MEDS: ATORVASTATIN CALCIUM 10MG TABLET PO SCH (21:34)
[2022-03-28] MEDS: ACETAMINOPHEN 325MG TABLET PO PRN (03:31)
[2022-03-28 04:00] VITALS: BP 100/55
[2022-03-28] MEDS: BLOOD SUGAR DIAGNOSTIC STRIP TEST SCH ×4 (06:13→21:40)
[2022-03-28] MEDS: AMIODARONE HCL 200 MG TABLET PO SCH ×3 (06:13→21:26)
[2022-03-28] MEDS: INSULIN LISPRO 100 UNITS/ML SUBCUT SCH ×4 (06:38→21:00)
[2022-03-28 07:00] LABS: BASOPHILS % 0.6 % (0.0-2.0); EOSINOPHILS % 2.6 % (0.0-5.0); HEMOGLOBIN. 11.9 g/dL (14.0-18.0); LYMPHOCYTES % 24.6 % (20.0-50.0); MEAN CORPUSCULAR VOLUME 81.9 fL (80.0-94.0); MEAN PLATELET VOLUME 9.5 fl (7.4-10.4); MONOCYTES % 8.3 % (2.0-8.0); NEUTROPHILS % 63.9 % (40.0-76.0); PLATELET 196 x1000/uL (130-400); RED BLOOD CELL COUNT 4.39 mill/uL (4.7-6.1); RED CELL DISTRIBUTION WIDTH 14.5 % (11.6-14.6)
[2022-03-28 07:03] LABS: CHLORIDE 104 mEq/L (98-107)
[2022-03-28 08:00] VITALS: BP 110/62
[2022-03-28] MEDS: PANTOPRAZOLE SODIUM 40 MG/VIAL IV SCH (08:49)
[2022-03-28] MEDS: ENOXAPARIN 100MG/ML SYR SUBCUT SCH (08:49)
[2022-03-28] MEDS: FUROSEMIDE 40MG/4ML VIAL IVP SCH (08:49)
[2022-03-28] MEDS: AMLODIPINE 5MG TABLET PO SCH (08:50)
[2022-03-28] MEDS: DILTIAZEM HCL 30MG TABLET PO SCH ×2 (08:50→12:37)
[2022-03-28] MEDS: ASPIRIN 81MG EC TABLET PO SCH (08:50)
[2022-03-28] MEDS: CLOPIDOGREL 75MG TABLET PO SCH (08:50)
[2022-03-28 12:00] VITALS: BP 97/57
[2022-03-28] MEDS ORDERED: FURO-151 MT ×2 (12:20)
[2022-03-28] MEDS ORDERED: DILT120C88 MT ×2 (12:20)
[2022-03-28] MEDS: NITROGLYCERIN 0.4MG TABLET SL SL PRN ×4 (12:22→17:47)
[2022-03-28] MEDS ORDERED: NALOXONE HCL 0.4MG/ML VIAL IV PRN (12:45)
[2022-03-28 15:37] VITALS: BP 105/61
[2022-03-28] MEDS ORDERED: DILT60TA41 MT ×2 (15:42)
[2022-03-28] MEDS ORDERED: APIX5TAB MT ×2 (15:42)
[2022-03-28] MEDS: APIXABAN 5 MG TABLET PO SCH (17:38)
[2022-03-28] MEDS: DILTIAZEM HCL 60MG TABLET PO SCH (17:39)
[2022-03-28] MEDS: MORPHINE SULFATE 2 MG/ML CPJ (NOT FOR IM USE) IV PRN ×2 (18:42→23:02)
[2022-03-28 20:00] VITALS: BP 120/82
[2022-03-28] MEDS: TRAZODONE HCL 50MG TABLET PO SCH (21:25)
[2022-03-28] MEDS: ATORVASTATIN CALCIUM 10MG TABLET PO SCH (21:26)
[2022-03-29] VITALS: BP 117/73
[2022-03-29] MEDS: DILTIAZEM HCL 60MG TABLET PO SCH ×2 (01:27→08:47)
[2022-03-29 04:00] VITALS: BP 103/72
[2022-03-29] MEDS: AMIODARONE HCL 200 MG TABLET PO SCH (05:24)
[2022-03-29] MEDS: MORPHINE SULFATE 2 MG/ML CPJ (NOT FOR IM USE) IV PRN (05:25)
[2022-03-29] MEDS: INSULIN LISPRO 100 UNITS/ML SUBCUT SCH ×2 (05:47→12:50)
[2022-03-29] MEDS: BLOOD SUGAR DIAGNOSTIC STRIP TEST SCH ×2 (05:47→12:20)
[2022-03-29 08:00] VITALS: BP 106/64
[2022-03-29] MEDS: APIXABAN 5 MG TABLET PO SCH (08:45)
[2022-03-29] MEDS: FUROSEMIDE 40MG/4ML VIAL IVP SCH (08:45)
[2022-03-29] MEDS: PANTOPRAZOLE SODIUM 40 MG/VIAL IV SCH (08:45)
[2022-03-29] MEDS: ASPIRIN 81MG EC TABLET PO SCH (08:48)
[2022-03-29 11:56] VITALS: BP 112/74
[2022-03-29] MEDS ORDERED: DILTIAZEM HCL 120MG CAPSULE CD 24HR PO SCH (13:15)
[2022-03-29 16:00] VITALS: BP 125/84
[2022-03-29] MEDS ORDERED: DILT240C91 MT (16:27)
[2022-03-29] MEDS ORDERED: APIX5TAB MT (16:27)
[2022-03-29] MEDS ORDERED: AMI2 MT (16:27)
[2022-03-29] MEDS ORDERED: FURO-151 MT (16:27)
[2022-03-29 16:34] VITALS: BP 125/82
[2022-03-29] MEDS ORDERED: AMIODARONE HCL 200 MG TABLET PO SCH (17:50)
== END 2022-03-29 18:16 | disposition home or self-care (01) | DRG 201 ==
LOC: ER 20:34 → 6WST 03-26 02:42 → ENRESERV 03-26 10:57
PROVIDERS: ADMIT Internal Medicine; ATTEND Internal Medicine
DX: I48.0 Paroxysmal atrial fibrillation (principal); I50.31 Acute diastolic (congestive) heart failure; I11.0 Hypertensive heart disease with heart failure; Z99.81 Dependence on supplemental oxygen; K59.00 Constipation, unspecified; E78.5 Hyperlipidemia, unspecified; J44.9 Chronic obstructive pulmonary disease, unspecified; E11.9 Type 2 diabetes mellitus without complications; Z87.891 Personal history of nicotine dependence; Z79.899 Other long term (current) drug therapy; Z90.49 Acquired absence of other specified parts of digestive tract; Z98.890 Other specified postprocedural states; Z82.49 Family history of ischemic heart disease and other diseases of the circulatory system; Z83.3 Family history of diabetes mellitus; Z86.79 Personal history of other diseases of the circulatory system; Z87.11 Personal history of peptic ulcer disease
CPT/HCPCS: 36415; 71045; 74176; 80048; 80053; 80061; 81003; 82550; 82553; 82962; 83036; 83735; 83880; 84443; 84484; 85025; 93005; 93306; 99285; C1893; C9113; J1650; J1815; J1940; J2270

== ENCOUNTER 2022-05-01 17:54 | Emergency (ER) | payer MEDICARE, MEDICAID ==
[~2022-05-01] VITALS: Ht 170.2 cm; Wt 100.0 kg
[~2022-05-01 17:54] MED LIST changes: +AMI2 MT; -AMLO5TAB88 PO; +APIX5TAB MT; +DILT240C91 MT; -FAMO-135 MT; +FURO-151 MT; -FURO-152 PO; -OMEP20TA15 PO; -RANI150T7 PO
[2022-05-01 17:57] VITALS: BP 122/76
[2022-05-01 19:58] LABS: BASOPHILS % 1.4 % (0.0-2.0); EOSINOPHILS % 3.8 % (0.0-5.0); HEMATOCRIT. 40.3 % (42.0-52.0); HEMOGLOBIN. 13.1 g/dL (14.0-18.0); MEAN CORPUSCULAR HEMOGLOBIN 26.5 pg (28.0-32.0); MEAN CORPUSCULAR VOLUME 81.3 fL (80.0-94.0); MONOCYTES % 5.9 % (2.0-8.0); NEUTROPHILS % 57.9 % (40.0-76.0); PLATELET 205 x1000/uL (130-400); RED BLOOD CELL COUNT 4.95 mill/uL (4.7-6.1); RED CELL DISTRIBUTION WIDTH 15.6 % (11.6-14.6)
[2022-05-01 20:14] LABS: CHLORIDE 101 mEq/L (98-107)
== END 2022-05-01 20:59 | disposition home or self-care (01) ==
LOC: ER 17:54
DX: I11.0 Hypertensive heart disease with heart failure (principal); I50.9 Heart failure, unspecified; I48.91 Unspecified atrial fibrillation; J44.9 Chronic obstructive pulmonary disease, unspecified; Z79.01 Long term (current) use of anticoagulants; Z79.899 Other long term (current) drug therapy
CPT/HCPCS: 36415; 71045; 80053; 83880; 85025; 93005; 93970; 99285

== ENCOUNTER 2022-06-28 16:17 | Emergency (ER) | payer MEDICARE, MEDICAID ==
[~2022-06-28] VITALS: Ht 167.6 cm; Wt 100.0 kg
[~2022-06-28 16:17] MED LIST changes: +ALBU6.7H9 INH; -AMI2 MT; -AMIO100T4 PO; +AMLO5TAB88 MT; +FLUT1AER INH; -FURO-151 MT; +METF-414 MT; -METF-414 PO; +[UNRECOGNIZED DRUG - CODE] PO
[2022-06-28] MEDS ORDERED: ACETAMINOPHEN 325MG TABLET PO STA (17:28)
[2022-06-28] MEDS ORDERED: SODIUM CHLORIDE 0.9% 500 ML IV ONE (17:30)
[2022-06-28 18:24] LABS: BASOPHILS % 1.1 % (0.0-2.0); HEMATOCRIT. 43.3 % (42.0-52.0); HEMOGLOBIN. 14.3 g/dL (14.0-18.0); MEAN CORPUSCULAR HEMOGLOBIN 27.3 pg (28.0-32.0); MEAN CORPUSCULAR VOLUME 82.9 fL (80.0-94.0); MEAN PLATELET VOLUME 10.1 fl (7.4-10.4); MONOCYTES % 5.5 % (2.0-8.0); NEUTROPHILS % 72.4 % (40.0-76.0); PLATELET 209 x1000/uL (130-400); RED BLOOD CELL COUNT 5.22 mill/uL (4.7-6.1); RED CELL DISTRIBUTION WIDTH 16.4 % (11.6-14.6)
[2022-06-28 18:33] LABS: CHLORIDE 96 mEq/L (98-107)
[2022-06-28 18:42] LABS: BETA HYDROXYBUTYRATE 0.8 mMol/L (0.0-0.3)
[2022-06-28 22:00] VITALS: BP 122/72
== END 2022-06-28 22:23 | disposition home or self-care (01) ==
LOC: ER 16:17
DX: S90.31XA Contusion of right foot, initial encounter (principal); E11.65 Type 2 diabetes mellitus with hyperglycemia; W22.8XXA Striking against or struck by other objects, initial encounter; I11.0 Hypertensive heart disease with heart failure; I50.9 Heart failure, unspecified; Y93.01 Activity, walking, marching and hiking; Y92.89 Other specified places as the place of occurrence of the external cause
CPT/HCPCS: 36415; 73630; 80053; 82010; 82962; 85025; 96360; 96361; 99284; J7040

== ENCOUNTER 2022-09-06 21:38 | Inpatient (IN) | payer MEDICARE, MEDICAID ==
[~2022-09-06] VITALS: Ht 165.1 cm; Wt 68.0 kg
[~2022-09-06 21:38] MED LIST changes: +ALBU6.7H3 INH; -ALBU6.7H9 INH; +INSU100I28 SQ
[2022-09-06] MEDS ORDERED: PANTOPRAZOLE SODIUM 40 MG/VIAL IV STA (22:52)
[2022-09-06] MEDS ORDERED: ONDANSETRON HCL 4MG/2ML INJ IV STA (22:52)
[2022-09-06] MEDS ORDERED: SODIUM CHLORIDE 0.9% 1,000 ML IV ONE (23:00)
[2022-09-06 23:25] LABS: CHLORIDE 97 mEq/L (98-107)
[2022-09-06 23:26] LABS: BASOPHILS % 0.7 % (0.0-2.0); EOSINOPHILS % 3.6 % (0.0-5.0); HEMATOCRIT. 42.6 % (42.0-52.0); HEMOGLOBIN. 14.3 g/dL (14.0-18.0); LYMPHOCYTES % 27.3 % (20.0-50.0); MEAN CORPUSCULAR HEMOGLOBIN 28.2 pg (28.0-32.0); MEAN CORPUSCULAR VOLUME 84.2 fL (80.0-94.0); MEAN PLATELET VOLUME 10.1 fl (7.4-10.4); MONOCYTES % 8.4 % (2.0-8.0); PLATELET 161 x1000/uL (130-400); RED BLOOD CELL COUNT 5.06 mill/uL (4.7-6.1); RED CELL DISTRIBUTION WIDTH 14.5 % (11.6-14.6)
[2022-09-06 23:35] LABS: BETA HYDROXYBUTYRATE 0.1 mMol/L (0.0-0.3); ETHANOL BLOOD < 10 mg/dL
[2022-09-07] MEDS ORDERED: SODIUM CHLORIDE 0.9% 1,000 ML IV ONE (00:45)
[2022-09-07] MEDS ORDERED: INSULIN LISPRO 100 UNITS/ML SUBCUT NR (00:45)
[2022-09-07] MEDS ORDERED: PANTOPRAZOLE SODIUM 40 MG/VIAL IV NR (04:00)
[2022-09-07] MEDS ORDERED: ONDANSETRON HCL 4MG/2ML INJ IV NR (04:00)
[2022-09-07 09:30] VITALS: BP 140/74
[2022-09-07] MEDS ORDERED: IPRATROPIUM/ALBUTEROL 0.5-3(2.5)MG/3ML NEB HHN PRN (10:00)
[2022-09-07] MEDS ORDERED: DOCUSATE SODIUM 100MG CAPSULE PO PRN (10:00)
[2022-09-07] MEDS ORDERED: ONDANSETRON HCL 4MG/2ML INJ IV PRN (10:00)
[2022-09-07] MEDS ORDERED: GUAIFENESIN 200MG/10ML SUGAR FREE UDC PO PRN (10:00)
[2022-09-07] MEDS ORDERED: ACETAMINOPHEN 325MG TABLET PO PRN (10:00)
[2022-09-07] MEDS ORDERED: MAGNESIUM/ALUMINUM HYDROXIDE/SIMETHICONE 30ML UDC PO PRN (10:00)
[2022-09-07] MEDS ORDERED: DEXTROSE 50% WATER 50ML SYRINGE IV PRN (10:15)
[2022-09-07 10:31] VITALS: BP 140/74
[2022-09-07 12:00] VITALS: BP 107/61
[2022-09-07] MEDS: BLOOD SUGAR DIAGNOSTIC STRIP TEST SCH ×3 (12:39→20:36)
[2022-09-07] MEDS: INSULIN LISPRO 100 UNITS/ML SUBCUT SCH ×3 (12:45→20:52)
[2022-09-07 16:00] VITALS: BP 122/69
[2022-09-07] MEDS ORDERED: SODIUM CHLORIDE 0.45% 1,000 ML IV SCH (17:45)
[2022-09-07 20:00] VITALS: BP 142/71
[2022-09-07] MEDS: ACETAMINOPHEN 325MG TABLET PO PRN (21:00)
[2022-09-08] VITALS: BP 128/62
[2022-09-08 03:50] VITALS: BP 124/59
[2022-09-08] MEDS: BLOOD SUGAR DIAGNOSTIC STRIP TEST SCH ×4 (06:03→20:59)
[2022-09-08] MEDS: INSULIN LISPRO 100 UNITS/ML SUBCUT SCH ×4 (06:06→21:03)
[2022-09-08 08:00] VITALS: BP 124/68
[2022-09-08 08:30] LABS: BASOPHILS % 1.3 % (0.0-2.0); HEMATOCRIT. 40.4 % (42.0-52.0); HEMOGLOBIN. 13.4 g/dL (14.0-18.0); MEAN CORPUSCULAR HEMOGLOBIN 27.8 pg (28.0-32.0); MEAN CORPUSCULAR VOLUME 83.7 fL (80.0-94.0); MEAN PLATELET VOLUME 9.6 fl (7.4-10.4); MONOCYTES % 8.3 % (2.0-8.0); NEUTROPHILS % 57.4 % (40.0-76.0); PLATELET 141 x1000/uL (130-400); RED BLOOD CELL COUNT 4.83 mill/uL (4.7-6.1); RED CELL DISTRIBUTION WIDTH 14.5 % (11.6-14.6)
[2022-09-08] MEDS ORDERED: PANTOPRAZOLE SODIUM 40 MG/VIAL IV SCH (09:00)
[2022-09-08] MEDS: ASPIRIN 81MG EC TABLET PO SCH (09:25)
[2022-09-08] MEDS ORDERED: INSULIN GLARGINE 100 UNITS/ML SUBCUT SCH (10:00)
[2022-09-08 10:03] LABS: CHLORIDE 106 mEq/L (98-107)
[2022-09-08 12:00] VITALS: BP 141/67
[2022-09-08 12:03] LABS: PROSTRATE SPECIFIC AG TOTAL 0.58 ng/mL (0.0-4.0)
[2022-09-08] MEDS: ACETAMINOPHEN 325MG TABLET PO PRN (13:16)
[2022-09-08] MEDS ORDERED: FAMOTIDINE 20MG TABLET PO NR (14:30)
[2022-09-08] MEDS ORDERED: ENOXAPARIN 40MG/0.4ML SYR SUBCUT SCH (15:00)
[2022-09-08 15:15] LABS: FOLIC ACID (FOLATE) SERUM 16.4 ng/mL (>5.38)
[2022-09-08 16:00] VITALS: BP 139/76
[2022-09-08] MEDS: APIXABAN 2.5 MG TABLET PO SCH (17:37)
[2022-09-08 20:00] VITALS: BP 148/76
[2022-09-08] MEDS: FAMOTIDINE 20MG TABLET PO SCH (21:04)
[2022-09-08 22:11] LABS: BASOPHILS % 0.9 % (0.0-2.0); EOSINOPHILS % 4.8 % (0.0-5.0); HEMATOCRIT. 40.7 % (42.0-52.0); HEMOGLOBIN. 13.3 g/dL (14.0-18.0); LYMPHOCYTES % 39.6 % (20.0-50.0); MEAN CORPUSCULAR HEMOGLOBIN 27.5 pg (28.0-32.0); MEAN CORPUSCULAR VOLUME 84.1 fL (80.0-94.0); MEAN PLATELET VOLUME 10.7 fl (7.4-10.4); NEUTROPHILS % 45.7 % (40.0-76.0); PLATELET 154 x1000/uL (130-400); RED BLOOD CELL COUNT 4.84 mill/uL (4.7-6.1); RED CELL DISTRIBUTION WIDTH 14.5 % (11.6-14.6)
[2022-09-08 23:00] LABS: PHOSPHORUS 2.8 mg/dL (2.5-4.9)
[2022-09-09] VITALS: BP 130/80
[2022-09-09 04:00] VITALS: BP 128/76
[2022-09-09] MEDS: BLOOD SUGAR DIAGNOSTIC STRIP TEST SCH ×3 (05:42→17:12)
[2022-09-09] MEDS: INSULIN LISPRO 100 UNITS/ML SUBCUT SCH ×3 (05:46→18:13)
[2022-09-09 07:47] LABS: CLARITY URINE CLEAR (CLEAR); COLOR URINE YELLOW (YELLOW); KETONES URINE NEGATIVE (NEGATIVE); LEUKOCYTE ESTERASE URINE NEGATIVE (NEGATIVE); NITRITE URINE NEGATIVE (NEGATIVE); OCCULT BLOOD URINE NEGATIVE (NEGATIVE); PROTEIN URINE NEGATIVE (NEGATIVE); SPECIFIC GRAVITY URINE 1.007 (1.005-1.030); UROBILINOGEN URINE 0.2 E.U./dL (0.2-1.0)
[2022-09-09 08:00] VITALS: BP 146/75
[2022-09-09] MEDS: APIXABAN 2.5 MG TABLET PO SCH ×2 (08:48→17:12)
[2022-09-09] MEDS: ASPIRIN 81MG EC TABLET PO SCH (08:48)
[2022-09-09] MEDS: FAMOTIDINE 20MG TABLET PO SCH (08:49)
[2022-09-09] MEDS ORDERED: INSULIN GLARGINE 100 UNITS/ML SUBCUT NR (10:00)
[2022-09-09 12:00] VITALS: BP 129/76
[2022-09-09 16:00] VITALS: BP 147/82
[2022-09-09] MEDS ORDERED: OMEP20CA14 PO (16:16)
[2022-09-09] MEDS ORDERED: FURO20TA4 PO (16:17)
[2022-09-09] MEDS ORDERED: TOPUD MT (16:18)
[2022-09-09] MEDS ORDERED: AMI2 PO (16:18)
[2022-09-09] MEDS ORDERED: APIX2.5T PO (17:02)
[2022-09-09] MEDS ORDERED: LANTUSUD SUBCUT (17:02)
[2022-09-09 18:17] VITALS: BP 147/82
== END 2022-09-09 20:00 | disposition home or self-care (01) | DRG 420 ==
LOC: ER 21:38 → 8WST 09-07 03:27 → EDBEDREQ 09-07 03:32 → EDBEDREQTM 09-07 03:32 → ENRESERV 09-07 06:52
PROVIDERS: ADMIT Internal Medicine; ATTEND Internal Medicine
DX: E11.65 Type 2 diabetes mellitus with hyperglycemia (principal); G93.41 Metabolic encephalopathy; E87.20 Acidosis, unspecified; E78.5 Hyperlipidemia, unspecified; I10 Essential (primary) hypertension; I48.91 Unspecified atrial fibrillation; I25.10 Atherosclerotic heart disease of native coronary artery without angina pectoris; J43.9 Emphysema, unspecified; Z66 Do not resuscitate; E87.1 Hypo-osmolality and hyponatremia; Z79.899 Other long term (current) drug therapy; Z79.4 Long term (current) use of insulin; Z79.01 Long term (current) use of anticoagulants; Z79.51 Long term (current) use of inhaled steroids; Z79.82 Long term (current) use of aspirin; Z79.84 Long term (current) use of oral hypoglycemic drugs; I25.2 Old myocardial infarction; Z90.49 Acquired absence of other specified parts of digestive tract; Z87.11 Personal history of peptic ulcer disease; Z91.14 Patient's other noncompliance with medication regimen; Z83.3 Family history of diabetes mellitus; Z82.49 Family history of ischemic heart disease and other diseases of the circulatory system
CPT/HCPCS: 36415; 71045; 74176; 80053; 80061; 80320; 81003; 82010; 82607; 82746; 82962; 83036; 83605; 83735; 83880; 84100; 84153; 84439; 84443; 84484; 85025; 93005; 97162; 99285; C1893; C9113; J1815; J2405; J7030; G0103; G0480

== ENCOUNTER 2022-12-04 16:47 | Inpatient (IN) | payer MEDICARE, MEDICAID ==
[~2022-12-04] VITALS: Ht 165.1 cm; Wt 90.7 kg
[~2022-12-04 16:47] MED LIST changes: +AMI2 PO; +APIX2.5T PO; -CLOP-31 MT; -DICY20TA2 PO; -DOCU-138 MT; +FURO20TA4 PO; -HYDR-4001 MT; -INSU100I28 SQ; -IPRA3AMP9 NEB; +LANTUSUD SUBCUT; +OMEP20CA14 PO; -PANT40SU MT; +TOPUD MT
[2022-12-04 17:28] LABS: BASOPHILS % 1.1 % (0.0-2.0); EOSINOPHILS % 1.9 % (0.0-5.0); HEMOGLOBIN. 13.3 g/dL (14.0-18.0); LYMPHOCYTES % 25.8 % (20.0-50.0); MEAN CORPUSCULAR HEMOGLOBIN 27.1 pg (28.0-32.0); MEAN CORPUSCULAR VOLUME 81.8 fL (80.0-94.0); MEAN PLATELET VOLUME 8.8 fl (7.4-10.4); MONOCYTES % 5.5 % (2.0-8.0); NEUTROPHILS % 65.7 % (40.0-76.0); PLATELET 265 x1000/uL (130-400); RED BLOOD CELL COUNT 4.89 mill/uL (4.7-6.1); RED CELL DISTRIBUTION WIDTH 15.3 % (11.6-14.6)
[2022-12-04 17:29] LABS: CHLORIDE 103 mEq/L (98-107)
[2022-12-04] MEDS: METOPROLOL TARTRATE 5MG/5ML VIAL IV SCH ×2 (19:03→20:37)
[2022-12-04] MEDS ORDERED: METOPROLOL TARTRATE 25MG TABLET PO ONE (20:00)
[2022-12-04] MEDS ORDERED: GUAIFENESIN 200MG/10ML SUGAR FREE UDC PO PRN (21:45)
[2022-12-04] MEDS ORDERED: ZOLPIDEM TARTRATE 5MG TABLET PO PRN (21:45)
[2022-12-04] MEDS ORDERED: NA PHOS,M-B/NA PHOS,DI-BA ENEMA 118ML PR PRN (21:45)
[2022-12-04] MEDS ORDERED: ONDANSETRON HCL 4MG/2ML INJ IV PRN (21:45)
[2022-12-04] MEDS ORDERED: ACETAMINOPHEN 325MG TABLET PO PRN ×2 (21:45)
[2022-12-04] MEDS ORDERED: CLONIDINE 0.1MG TABLET PO PRN (21:45)
[2022-12-04] MEDS ORDERED: NITROGLYCERIN 0.4MG TABLET SL SL PRN (21:45)
[2022-12-04] MEDS ORDERED: DEXTROSE 50% WATER 50ML SYRINGE IV PRN (21:45)
[2022-12-04] MEDS ORDERED: MAGNESIUM/ALUMINUM HYDROXIDE/SIMETHICONE 30ML UDC PO PRN (21:45)
[2022-12-04] MEDS ORDERED: IPRATROPIUM/ALBUTEROL 0.5-3(2.5)MG/3ML NEB NEB PRN (21:45)
[2022-12-04] MEDS ORDERED: DOCUSATE SODIUM 100MG CAPSULE PO PRN (21:45)
[2022-12-04] MEDS ORDERED: ENOXAPARIN 100MG/ML SYR SUBCUT NR (22:22)
[2022-12-04 22:34] LABS: ETHANOL BLOOD < 10 mg/dL; TOTAL IRON BINDING CAPACITY 382 ug/dL (250-450)
[2022-12-04 22:50] LABS: FOLIC ACID (FOLATE) SERUM >20 ng/mL ng/mL (>5.38); VITAMIN B12 SERUM 298 pg/mL (211-911)
[2022-12-05] MEDS: DILTIAZEM HCL 60MG TABLET PO SCH ×4 (00:44→17:17)
[2022-12-05 01:51] LABS: CREATINE KINASE MB FRACTION 1.6 ng/mL (0.5-3.6)
[2022-12-05 05:09] VITALS: BP 124/92
[2022-12-05 05:18] VITALS: BP 124/92
[2022-12-05] MEDS: KETOROLAC 15MG/ML VIAL IV PRN ×3 (05:54→20:58)
[2022-12-05] MEDS ORDERED: ENOXAPARIN 120MG/0.8ML SYR SUBCUT SCH (06:00)
[2022-12-05] MEDS: BLOOD SUGAR DIAGNOSTIC STRIP TEST SCH ×4 (06:40→20:07)
[2022-12-05 08:00] VITALS: BP 115/96
[2022-12-05] MEDS: FAMOTIDINE 20MG TABLET PO SCH ×2 (08:39→21:17)
[2022-12-05] MEDS: ASPIRIN 325MG EC TABLET PO SCH (08:39)
[2022-12-05] MEDS: FUROSEMIDE 20MG TABLET PO SCH (08:39)
[2022-12-05] MEDS: MULTIVITAMINS,THER W-MINERALS TABLET PO SCH (08:39)
[2022-12-05] MEDS: INSULIN LISPRO 100 UNITS/ML SUBCUT SCH ×4 (08:42→21:18)
[2022-12-05] MEDS ORDERED: AMIODARONE HCL 200 MG TABLET PO SCH (09:00)
[2022-12-05 09:13] LABS: HEMATOCRIT. 38.3 % (42.0-52.0); HEMOGLOBIN. 12.5 g/dL (14.0-18.0); LYMPHOCYTES % 34.8 % (20.0-50.0); MEAN CORPUSCULAR HEMOGLOBIN 26.6 pg (28.0-32.0); MEAN CORPUSCULAR VOLUME 81.6 fL (80.0-94.0); MEAN PLATELET VOLUME 9.2 fl (7.4-10.4); MONOCYTES % 6.1 % (2.0-8.0); NEUTROPHILS % 56.1 % (40.0-76.0); PLATELET 234 x1000/uL (130-400); RED BLOOD CELL COUNT 4.69 mill/uL (4.7-6.1); RED CELL DISTRIBUTION WIDTH 15.4 % (11.6-14.6)
[2022-12-05 09:19] LABS: INR 1.2; PROTHROMBIN TIME 12.6 sec (9.6-11.0)
[2022-12-05 09:21] LABS: CHLORIDE 104 mEq/L (98-107)
[2022-12-05 09:32] LABS: CREATINE KINASE 50 IU/L (39-308); CREATINE KINASE MB FRACTION 1.2 ng/mL (0.5-3.6); PHOSPHORUS 3.2 mg/dL (2.5-4.9)
[2022-12-05] MEDS: INSULIN GLARGINE 100 UNITS/ML SUBCUT SCH (10:26)
[2022-12-05 12:00] VITALS: BP 112/64
[2022-12-05 16:00] VITALS: BP 145/75
[2022-12-05] MEDS: AMIODARONE HCL 200 MG TABLET PO SCH (17:17)
[2022-12-05] MEDS: APIXABAN 5 MG TABLET PO SCH (17:17)
[2022-12-05 20:00] VITALS: BP 108/74
[2022-12-05] MEDS ORDERED: ATORVASTATIN CALCIUM 10MG TABLET PO SCH (21:00)
[2022-12-06] VITALS: BP 111/57
[2022-12-06 04:00] VITALS: BP 141/90
[2022-12-06] MEDS: DILTIAZEM HCL 60MG TABLET PO SCH ×3 (05:34→12:00)
[2022-12-06] MEDS: BLOOD SUGAR DIAGNOSTIC STRIP TEST SCH ×2 (07:40→12:39)
[2022-12-06 08:00] VITALS: BP 133/75
[2022-12-06] MEDS ORDERED: AMI2 PO (08:38)
[2022-12-06] MEDS ORDERED: DILT240C91 MT (08:38)
[2022-12-06] MEDS: APIXABAN 5 MG TABLET PO SCH (09:09)
[2022-12-06] MEDS: FAMOTIDINE 20MG TABLET PO SCH (09:09)
[2022-12-06] MEDS: AMIODARONE HCL 200 MG TABLET PO SCH (09:09)
[2022-12-06] MEDS: MULTIVITAMINS,THER W-MINERALS TABLET PO SCH (09:09)
[2022-12-06] MEDS: ASPIRIN 325MG EC TABLET PO SCH (09:09)
[2022-12-06] MEDS: FUROSEMIDE 20MG TABLET PO SCH (09:09)
[2022-12-06] MEDS: INSULIN GLARGINE 100 UNITS/ML SUBCUT SCH (09:12)
[2022-12-06] MEDS: INSULIN LISPRO 100 UNITS/ML SUBCUT SCH (09:13)
[2022-12-06 11:58] VITALS: BP 133/75
== END 2022-12-06 11:05 | disposition home health service (06) | DRG 201 ==
LOC: ER 16:47 → MICUSO 21:36 → SUPCPDRO 21:40 → 7WST 12-05 04:45
PROVIDERS: ADMIT Internal Medicine; ATTEND Internal Medicine
DX: I48.0 Paroxysmal atrial fibrillation (principal); I50.23 Acute on chronic systolic (congestive) heart failure; I27.20 Pulmonary hypertension, unspecified; I42.9 Cardiomyopathy, unspecified; E11.65 Type 2 diabetes mellitus with hyperglycemia; D64.9 Anemia, unspecified; J84.9 Interstitial pulmonary disease, unspecified; J44.9 Chronic obstructive pulmonary disease, unspecified; I11.0 Hypertensive heart disease with heart failure; Z79.01 Long term (current) use of anticoagulants; Z82.49 Family history of ischemic heart disease and other diseases of the circulatory system; Z83.3 Family history of diabetes mellitus; Z87.891 Personal history of nicotine dependence
CPT/HCPCS: 36415; 71045; 80053; 80320; 82550; 82553; 82607; 82746; 82962; 83540; 83550; 83735; 83880; 84100; 84145; 84439; 84443; 84484; 85025; 85379; 93005; 93306; 93970; 97162; 97166; 99285; J1650; J1815; J1885; J3490; G0480

== ENCOUNTER 2022-12-28 14:05 | Inpatient (IN) | payer MEDICARE, MEDICAID ==
[~2022-12-28] VITALS: Ht 165.1 cm; Wt 86.6 kg
[~2022-12-28 14:05] MED LIST changes: -AMLO5TAB88 MT; -APIX2.5T PO; -TOPUD MT; -[UNRECOGNIZED DRUG - CODE] PO
[2022-12-28] MEDS ORDERED: DEXTROSE 50% WATER 50ML SYRINGE IV ONE (15:15)
[2022-12-28 16:23] LABS: HEMATOCRIT. 43.8 % (42.0-52.0); HEMOGLOBIN. 14.3 g/dL (14.0-18.0); MEAN CORPUSCULAR HEMOGLOBIN 26.6 pg (28.0-32.0); MEAN CORPUSCULAR VOLUME 81.8 fL (80.0-94.0); PLATELET 293 x1000/uL (130-400); RED BLOOD CELL COUNT 5.36 mill/uL (4.7-6.1); RED CELL DISTRIBUTION WIDTH 15.6 % (11.6-14.6)
[2022-12-28 16:28] LABS: CHLORIDE 106 mEq/L (98-107)
[2022-12-28] MEDS ORDERED: SODIUM CHLORIDE 0.9% 1,000 ML IV ONE (17:00)
[2022-12-28 17:04] LABS: PLATELET ESTIMATE NORMAL
[2022-12-28 19:33] LABS: CLARITY URINE CLEAR (CLEAR); COLOR URINE YELLOW (YELLOW); KETONES URINE TRACE (NEGATIVE); LEUKOCYTE ESTERASE URINE NEGATIVE (NEGATIVE); NITRITE URINE NEGATIVE (NEGATIVE); OCCULT BLOOD URINE NEGATIVE (NEGATIVE); PROTEIN URINE NEGATIVE (NEGATIVE); SPECIFIC GRAVITY URINE 1.017 (1.005-1.030)
[2022-12-29] MEDS ORDERED: CARVEDILOL 3.125 MG TABLET PO SCH (09:30)
[2022-12-29] MEDS ORDERED: ASPIRIN 325MG EC TABLET PO SCH (09:30)
[2022-12-29] MEDS ORDERED: NITROGLYCERIN 0.4MG TABLET SL SL PRN (09:30)
[2022-12-29 09:35] VITALS: BP 149/61
[2022-12-29] MEDS ORDERED: ONDANSETRON HCL 4MG/2ML INJ IV PRN (10:00)
[2022-12-29] MEDS ORDERED: MAGNESIUM/ALUMINUM HYDROXIDE/SIMETHICONE 30ML UDC PO PRN (10:00)
[2022-12-29] MEDS ORDERED: CLONIDINE 0.1MG TABLET PO PRN (10:00)
[2022-12-29] MEDS ORDERED: GUAIFENESIN 200MG/10ML SUGAR FREE UDC PO PRN (10:00)
[2022-12-29] MEDS ORDERED: IPRATROPIUM/ALBUTEROL 0.5-3(2.5)MG/3ML NEB NEB PRN (10:00)
[2022-12-29] MEDS ORDERED: DEXTROSE 50% WATER 50ML SYRINGE IV PRN (10:00)
[2022-12-29] MEDS ORDERED: ACETAMINOPHEN 325MG TABLET PO PRN ×2 (10:00)
[2022-12-29] MEDS ORDERED: DOCUSATE SODIUM 100MG CAPSULE PO PRN (10:00)
[2022-12-29] MEDS ORDERED: AMIODARONE HCL 200 MG TABLET PO SCH ×2 (10:30→14:45)
[2022-12-29] MEDS: BLOOD SUGAR DIAGNOSTIC STRIP TEST SCH ×3 (11:30→21:00)
[2022-12-29 12:00] VITALS: BP 144/80
[2022-12-29] MEDS ORDERED: IPRATROPIUM BROMIDE (0.02%) 0.5MG/2.5ML NEB HHN PRN (13:00)
[2022-12-29] MEDS ORDERED: ALBUTEROL (0.083%) 2.5MG/3ML NEB HHN PRN (13:00)
[2022-12-29] MEDS: APIXABAN 5 MG TABLET PO SCH (13:49)
[2022-12-29] MEDS: FAMOTIDINE 20MG TABLET PO SCH ×2 (13:49→21:20)
[2022-12-29] MEDS: INSULIN LISPRO 100 UNITS/ML SUBCUT SCH ×3 (14:01→21:29)
[2022-12-29] MEDS ORDERED: DILTIAZEM HCL 90MG TABLET PO SCH (15:00)
[2022-12-29 16:00] VITALS: BP 140/84
[2022-12-29 16:43] LABS: CREATINE KINASE 47 IU/L (39-308); CREATINE KINASE MB FRACTION < 1.0 ng/mL (0.5-3.6)
[2022-12-29 16:48] LABS: T4 FREE 0.96 ng/dL (0.76-1.46)
[2022-12-29 17:22] LABS: FOLIC ACID (FOLATE) SERUM 17.6 ng/mL (>5.38)
[2022-12-29 20:00] VITALS: BP 133/77
[2022-12-29] MEDS ORDERED: ZOLPIDEM TARTRATE 5MG TABLET PO PRN (21:00)
[2022-12-29] MEDS: DILTIAZEM HCL 30MG TABLET PO SCH (21:19)
[2022-12-29] MEDS: CARVEDILOL 3.125 MG TABLET PO SCH (21:20)
[2022-12-29] MEDS: AMIODARONE HCL 200 MG TABLET PO SCH (21:20)
[2022-12-30] VITALS: BP 140/66
[2022-12-30 00:24] LABS: CREATINE KINASE 49 IU/L (39-308); CREATINE KINASE MB FRACTION < 1.0 ng/mL (0.5-3.6)
[2022-12-30 04:00] VITALS: BP 135/78
[2022-12-30] MEDS: INSULIN LISPRO 100 UNITS/ML SUBCUT SCH ×2 (06:21→12:19)
[2022-12-30] MEDS: DILTIAZEM HCL 30MG TABLET PO SCH (06:22)
[2022-12-30] MEDS: BLOOD SUGAR DIAGNOSTIC STRIP TEST SCH ×2 (06:40→11:40)
[2022-12-30] MEDS: APIXABAN 5 MG TABLET PO SCH (07:02)
[2022-12-30 07:07] LABS: EOSINOPHILS % 2.5 % (0.0-5.0); HEMATOCRIT. 37.8 % (42.0-52.0); HEMOGLOBIN. 12.2 g/dL (14.0-18.0); MEAN CORPUSCULAR HEMOGLOBIN 26.2 pg (28.0-32.0); MEAN PLATELET VOLUME 9.2 fl (7.4-10.4); MONOCYTES % 7.6 % (2.0-8.0); NEUTROPHILS % 66.9 % (40.0-76.0); PLATELET 227 x1000/uL (130-400); RED BLOOD CELL COUNT 4.66 mill/uL (4.7-6.1); RED CELL DISTRIBUTION WIDTH 15.6 % (11.6-14.6)
[2022-12-30 08:00] VITALS: BP 133/76
[2022-12-30] MEDS: FAMOTIDINE 20MG TABLET PO SCH (09:35)
[2022-12-30] MEDS: CARVEDILOL 3.125 MG TABLET PO SCH (09:35)
[2022-12-30] MEDS: AMIODARONE HCL 200 MG TABLET PO SCH (09:35)
[2022-12-30 09:42] LABS: CLARITY URINE CLEAR (CLEAR); COLOR URINE YELLOW (YELLOW); KETONES URINE NEGATIVE (NEGATIVE); LEUKOCYTE ESTERASE URINE NEGATIVE (NEGATIVE); NITRITE URINE NEGATIVE (NEGATIVE); OCCULT BLOOD URINE NEGATIVE (NEGATIVE); PH URINE 7.5 (4.5-8.0); PROTEIN URINE NEGATIVE (NEGATIVE); SPECIFIC GRAVITY URINE 1.011 (1.005-1.030)
[2022-12-30 10:25] LABS: *AMPHETAMINES SCREEN URINE NEGATIVE (NEGATIVE); *BARBITURATES SCREEN URINE NEGATIVE (NEGATIVE); *BENZODIAZEPINES SCREEN URINE NEGATIVE (NEGATIVE); *COCAINE SCREEN URINE NEGATIVE (NEGATIVE); CANNABINOID URINE SCREEN NEGATIVE (NEGATIVE); METHADONE URINE SCREEN NEGATIVE (NEGATIVE); OPIATES URINE SCREEN NEGATIVE (NEGATIVE); PHENCYCLIDINE URINE SCREEN NEGATIVE (NEGATIVE)
[2022-12-30 11:37] LABS: CHLORIDE 105 mEq/L (98-107)
[2022-12-30 11:47] LABS: PHOSPHORUS 3.3 mg/dL (2.5-4.9)
[2022-12-30 11:56] VITALS: BP 132/77
[2022-12-30 14:59] VITALS: BP 132/77
[2022-12-30] MEDS ORDERED: DILTIAZEM HCL 180MG CAPSULE CD 24HR PO SCH (15:00)
[2022-12-30] MEDS ORDERED: CARVEDILOL 6.25 MG TABLET PO SCH (21:00)
== END 2022-12-30 15:30 | disposition home or self-care (01) | DRG 420 ==
LOC: ER 14:05 → EDBEDREQ 15:47 → MICUSO 18:02 → EDBEDREQ 18:10 → 7EST 12-29 12:45
PROVIDERS: ADMIT Internal Medicine; ATTEND Internal Medicine
DX: E11.649 Type 2 diabetes mellitus with hypoglycemia without coma (principal); G93.40 Encephalopathy, unspecified; I42.9 Cardiomyopathy, unspecified; E88.09 Other disorders of plasma-protein metabolism, not elsewhere classified; I50.9 Heart failure, unspecified; I11.0 Hypertensive heart disease with heart failure; I48.91 Unspecified atrial fibrillation; Z20.822 Contact with and (suspected) exposure to COVID-19; J44.9 Chronic obstructive pulmonary disease, unspecified; D72.825 Bandemia; I25.10 Atherosclerotic heart disease of native coronary artery without angina pectoris; I25.2 Old myocardial infarction; Z87.891 Personal history of nicotine dependence; Z91.199 Patient's noncompliance with other medical treatment and regimen due to unspecified reason; Z79.899 Other long term (current) drug therapy; Z83.3 Family history of diabetes mellitus; Z82.49 Family history of ischemic heart disease and other diseases of the circulatory system
CPT/HCPCS: 36415; 70551; 71045; 80053; 80061; 80305; 81003; 82550; 82553; 82607; 82746; 82962; 83036; 83540; 83550; 83735; 84100; 84439; 84443; 84484; 85025; 87426; 93005; 93306; 93970; 99285; J1815; J7030

== ENCOUNTER 2023-05-01 20:27 | Emergency (ER) | payer MEDICARE, MEDICAID ==
[~2023-05-01] VITALS: Ht 160 cm; Wt 71.0 kg
[~2023-05-01 20:27] MED LIST changes: +DILT-27 PO; -DILT240C91 MT; -FERR325T6 PO
[2023-05-01 20:36] VITALS: O2SAT 94
[2023-05-01 21:40] LABS: BASOPHILS % 0.9 % (0.0-2.0); HEMATOCRIT. 40.1 % (42.0-52.0); HEMOGLOBIN. 13.3 g/dL (14.0-18.0); LYMPHOCYTES % 23.3 % (20.0-50.0); MEAN CORPUSCULAR HEMOGLOBIN 27.9 pg (28.0-32.0); MEAN CORPUSCULAR VOLUME 84.3 fL (80.0-94.0); MEAN PLATELET VOLUME 9.1 fl (7.4-10.4); NEUTROPHILS % 62.8 % (40.0-76.0); PLATELET 260 x1000/uL (130-400); RED BLOOD CELL COUNT 4.76 mill/uL (4.7-6.1); RED CELL DISTRIBUTION WIDTH 17.2 % (11.6-14.6)
[2023-05-01 21:47] LABS: CHLORIDE 104 mEq/L (98-107)
[2023-05-01 21:59] LABS: ETHANOL BLOOD < 10 mg/dL (-10)
[2023-05-01] MEDS ORDERED: GABAPENTIN 100MG CAPSULE PO ONE (22:15)
[2023-05-01] MEDS ORDERED: ACETAMINOPHEN 325MG TABLET PO ONE (22:15)
[2023-05-01] MEDS ORDERED: ACET-2708 MT (22:17)
[2023-05-01] MEDS ORDERED: GABA-529 MT (22:17)
[2023-05-01 22:49] VITALS: BP 148/70; PULSE 83; RESP 16; TEMP 98.3
== END 2023-05-01 22:51 | disposition home or self-care (01) ==
LOC: ER 20:27
DX: G62.9 Polyneuropathy, unspecified (principal); I48.91 Unspecified atrial fibrillation; E11.9 Type 2 diabetes mellitus without complications; I10 Essential (primary) hypertension; I25.2 Old myocardial infarction; I50.9 Heart failure, unspecified
CPT/HCPCS: 36415; 71045; 80053; 80320; 83880; 84484; 85025; 93005; 93970; 99285; G0480

== ENCOUNTER 2023-05-03 21:24 | Emergency (ER) | payer MEDICARE, MEDICAID ==
[~2023-05-03] VITALS: Ht 172.7 cm; Wt 82.0 kg
[~2023-05-03 21:24] MED LIST changes: +ACET-2708 MT; +GABA-529 MT
[2023-05-03 21:33] VITALS: O2SAT 97
[2023-05-03] MEDS ORDERED: SODIUM CHLORIDE 0.9% 1,000 ML IV ONE (23:15)
[2023-05-04 04:42] LABS: BASOPHILS % 1.1 % (0.0-2.0); EOSINOPHILS % 3.5 % (0.0-5.0); HEMOGLOBIN. 13.5 g/dL (14.0-18.0); LYMPHOCYTES % 18.9 % (20.0-50.0); MEAN CORPUSCULAR HEMOGLOBIN 28.1 pg (28.0-32.0); MEAN CORPUSCULAR VOLUME 83.4 fL (80.0-94.0); MEAN PLATELET VOLUME 8.7 fl (7.4-10.4); MONOCYTES % 8.2 % (2.0-8.0); NEUTROPHILS % 68.3 % (40.0-76.0); PLATELET 226 x1000/uL (130-400); RED CELL DISTRIBUTION WIDTH 17.2 % (11.6-14.6)
[2023-05-04 04:48] LABS: CHLORIDE 106 mEq/L (98-107)
[2023-05-04 04:59] LABS: BETA HYDROXYBUTYRATE 0.3 mMol/L (0.0-0.3)
[2023-05-04 05:15] VITALS: TEMP 98.6
[2023-05-04] MEDS ORDERED: IBUPROFEN 600MG TABLET PO ONE (05:30)
[2023-05-04 05:45] VITALS: BP 131/84; PULSE 68; RESP 16
[2023-05-04 06:04] LABS: CLARITY URINE CLEAR (CLEAR); COLOR URINE YELLOW (YELLOW); KETONES URINE NEGATIVE (NEGATIVE); LEUKOCYTE ESTERASE URINE NEGATIVE (NEGATIVE); NITRITE URINE NEGATIVE (NEGATIVE); OCCULT BLOOD URINE NEGATIVE (NEGATIVE); PH URINE 5.5 (4.5-8.0); PROTEIN URINE NEGATIVE (NEGATIVE); SPECIFIC GRAVITY URINE 1.035 (1.005-1.030)
== END 2023-05-04 05:35 | disposition home or self-care (01) ==
LOC: ER 21:24
DX: E11.65 Type 2 diabetes mellitus with hyperglycemia (principal); I48.91 Unspecified atrial fibrillation; I10 Essential (primary) hypertension; I25.2 Old myocardial infarction; Z79.899 Other long term (current) drug therapy
CPT/HCPCS: 99285; 96360; 82962; 36415; 80053; 81003; 82010; 85025; 84484; J7030

== ENCOUNTER 2023-05-21 17:19 | Emergency (ER) | payer MEDICARE, MEDICAID ==
[~2023-05-21] VITALS: Ht 180.3 cm; Wt 78.0 kg
[2023-05-21 17:21] VITALS: TEMP 98.8; O2SAT 98
[2023-05-21 17:34] VITALS: BP 137/69; PULSE 72; RESP 16
[2023-05-21] MEDS: IBUPROFEN 600MG TABLET PO NR ×2 (17:34→22:17)
[2023-05-21] MEDS ORDERED: FUROSEMIDE 20MG TABLET PO NR (18:15)
[2023-05-21 20:27] LABS: BASOPHILS % 1.3 % (0.0-2.0); EOSINOPHILS % 3.3 % (0.0-5.0); HEMATOCRIT. 39.9 % (42.0-52.0); HEMOGLOBIN. 13.1 g/dL (14.0-18.0); LYMPHOCYTES % 25.5 % (20.0-50.0); MEAN CORPUSCULAR HEMOGLOBIN 27.7 pg (28.0-32.0); MEAN CORPUSCULAR HGB CONC 32.8 g/dL (31.0-37.0); MEAN CORPUSCULAR VOLUME 84.6 fL (80.0-94.0); MONOCYTES % 8.6 % (2.0-8.0); NEUTROPHILS % 61.3 % (40.0-76.0); PLATELET 208 x1000/uL (130-400); RED BLOOD CELL COUNT 4.72 mill/uL (4.7-6.1); RED CELL DISTRIBUTION WIDTH 17.1 % (11.6-14.6); WHITE BLOOD COUNT 6.5 x1000/uL (4.5-11.0)
[2023-05-21 20:36] LABS: CHLORIDE 106 mEq/L (98-107); INDEX HEMOLYSI 1 (1-3); INDEX ICTERIC 1 (1-4); INDEX LIPEMIC 1 (1-3); POTASSIUM 3.8 mEq/L (3.5-5.1); SODIUM 135 mEq/L (136-145)
[2023-05-21 20:43] LABS: ALANINE AMINOTRANSFERASE 80 IU/L (13-61); ALBUMIN 3.5 g/dL (3.4-5.0); ASPARTATE AMINOTRANSFERASE 52 IU/L (15-37); BILIRUBIN TOTAL 0.3 mg/dL (0.1-1.0); CALCIUM 9.2 mg/dL (8.5-10.1); CARBON DIOXIDE 22 mEq/L (21-32); CREATININE 0.8 mg/dL (0.6-1.3); GLUCOSE 170 mg/dL (70-105); PROTEIN TOTAL 7.7 g/dL (6.0-8.3); UREA NITROGEN BLOOD 11 mg/dL (7-21)
[2023-05-21 20:46] LABS: NT PRO B-TYPE NATRIURETIC PEP 354 pg/mL (5-125)
== END 2023-05-21 23:10 | disposition home or self-care (01) ==
LOC: ER 17:19
DX: M79.89 Other specified soft tissue disorders (principal); I48.91 Unspecified atrial fibrillation; E11.9 Type 2 diabetes mellitus without complications; I10 Essential (primary) hypertension; I25.2 Old myocardial infarction; Z90.49 Acquired absence of other specified parts of digestive tract; Z79.899 Other long term (current) drug therapy
CPT/HCPCS: 36415; 71045; 80053; 83880; 85025; 93005; 99285

== ENCOUNTER 2023-07-05 13:55 | Emergency (ER) | payer MEDICARE, MEDICAID ==
[~2023-07-05] VITALS: Ht 167.6 cm; Wt 77.0 kg
[2023-07-05 13:58] VITALS: BP 114/64; PULSE 67; RESP 16; TEMP 98.1; O2SAT 100
[2023-07-05] MEDS ORDERED: DEXTROSE 50% WATER 50ML SYRINGE IV ONE (14:15)
[2023-07-05 15:25] LABS: HEMATOCRIT. 41.1 % (42.0-52.0); HEMOGLOBIN. 13.4 g/dL (14.0-18.0); MEAN CORPUSCULAR HGB CONC 32.6 g/dL (31.0-37.0); MEAN CORPUSCULAR VOLUME 85.8 fL (80.0-94.0); MEAN PLATELET VOLUME 9.2 fl (7.4-10.4); PLATELET 197 x1000/uL (130-400); RED BLOOD CELL COUNT 4.79 mill/uL (4.7-6.1); RED CELL DISTRIBUTION WIDTH 15.5 % (11.6-14.6); WHITE BLOOD COUNT 10.1 x1000/uL (4.5-11.0)
[2023-07-05 15:28] LABS: DIFFERENTIAL COMMENT 1
[2023-07-05 15:47] LABS: CHLORIDE 105 mEq/L (98-107); INDEX HEMOLYSI 2 (1-3); INDEX ICTERIC 1 (1-4); INDEX LIPEMIC 1 (1-3); POTASSIUM 3.8 mEq/L (3.5-5.1); SODIUM 139 mEq/L (136-145)
[2023-07-05 15:58] LABS: ALANINE AMINOTRANSFERASE 68 IU/L (13-61); ALBUMIN 3.3 g/dL (3.4-5.0); ASPARTATE AMINOTRANSFERASE 46 IU/L (15-37); BILIRUBIN TOTAL 0.4 mg/dL (0.1-1.0); CALCIUM 9.2 mg/dL (8.5-10.1); CARBON DIOXIDE 23 mEq/L (21-32); CREATININE 1.2 mg/dL (0.6-1.3); GLUCOSE 151 mg/dL (70-105); NT PRO B-TYPE NATRIURETIC PEP 111 pg/mL (5-125); PROTEIN TOTAL 7.3 g/dL (6.0-8.3); TROPONIN I HIGH SENSITIVITY 6 ng/L (<78); UREA NITROGEN BLOOD 16 mg/dL (7-21)
[2023-07-05 16:30] LABS: ANISOCYTOSIS 1+; PLATELET ESTIMATE NORMAL
== END 2023-07-05 21:25 | disposition home or self-care (01) ==
LOC: ER 14:06
DX: E11.649 Type 2 diabetes mellitus with hypoglycemia without coma (principal); R94.31 Abnormal electrocardiogram [ECG] [EKG]; E78.00 Pure hypercholesterolemia, unspecified; I10 Essential (primary) hypertension; Z79.899 Other long term (current) drug therapy
CPT/HCPCS: 36415; 71045; 80053; 82962; 83880; 84484; 85025; 93005; 96374; 99285

== ENCOUNTER 2023-08-18 17:49 | Emergency (ER) | payer MEDICARE, MEDICAID ==
[~2023-08-18] VITALS: Ht 177.8 cm; Wt 83.0 kg
[~2023-08-18 17:49] MED LIST changes: -ACET-2708 MT; -APIX5TAB MT; +APIX5TAB PO; -ASPI-1497 MT; +ASPI-1497 PO; +ERGO400C PO; -GABA-529 MT; +INSNOV SUBCUT; +INSU100I24 SQ; -LANTUSUD SUBCUT; -METF-414 MT; +METF-414 PO
[2023-08-18 17:53] VITALS: O2SAT 97
[2023-08-19 10:42] VITALS: BP 153/68; PULSE 79; RESP 20; TEMP 98
[2023-08-24] MEDS ORDERED: FURO-152 PO (01:03)
[2023-08-24] MEDS ORDERED: METF-873 PO (01:03)
[2023-08-24] MEDS ORDERED: ASPI-1497 PO (01:03)
== END 2023-08-19 10:52 | disposition hospice, inpatient (51) ==
LOC: ER 17:49
DX: T38.3X1A Poisoning by insulin and oral hypoglycemic [antidiabetic] drugs, accidental (unintentional), initial encounter (principal); I25.2 Old myocardial infarction; I10 Essential (primary) hypertension; Z79.899 Other long term (current) drug therapy; Y92.9 Unspecified place or not applicable
CPT/HCPCS: 82962; 99283

== ENCOUNTER 2023-09-23 19:16 | Inpatient (IN) | payer MEDICARE, MEDICAID ==
[~2023-09-23] VITALS: Ht 167.6 cm; Wt 76.2 kg
[~2023-09-23 19:16] MED LIST changes: +FURO-152 PO; +METF-873 PO
[2023-09-23 22:10] LABS: BASOPHILS % 1.1 % (0.0-2.0); EOSINOPHILS % 2.8 % (0.0-5.0); HEMATOCRIT. 38.5 % (42.0-52.0); HEMOGLOBIN. 12.7 g/dL (14.0-18.0); LYMPHOCYTES % 22.7 % (20.0-50.0); MEAN CORPUSCULAR HEMOGLOBIN 28.7 pg (28.0-32.0); MEAN CORPUSCULAR HGB CONC 33.1 g/dL (31.0-37.0); MEAN CORPUSCULAR VOLUME 86.7 fL (80.0-94.0); MEAN PLATELET VOLUME 9.3 fl (7.4-10.4); MONOCYTES % 7.8 % (2.0-8.0); NEUTROPHILS % 65.6 % (40.0-76.0); PLATELET 219 x1000/uL (130-400); RED BLOOD CELL COUNT 4.44 mill/uL (4.7-6.1); RED CELL DISTRIBUTION WIDTH 16.1 % (11.6-14.6); WHITE BLOOD COUNT 7.8 x1000/uL (4.5-11.0)
[2023-09-23 22:35] LABS: ALANINE AMINOTRANSFERASE 37 IU/L (10-49); ALBUMIN 4.3 g/dL (3.2-4.8); ASPARTATE AMINOTRANSFERASE 28 IU/L (<34); BILIRUBIN TOTAL 0.3 mg/dL (0.1-1.0); CALCIUM 9.9 mg/dL (8.7-10.4); CARBON DIOXIDE 24 mEq/L (21-32); CHLORIDE 105 mEq/L (98-107); GLUCOSE 124 mg/dL (70-105); POTASSIUM 3.7 mEq/L (3.5-5.1); PROTEIN TOTAL 7.3 g/dL (6.0-8.3); SODIUM 139 mEq/L (136-145); TROPONIN I HIGH SENSITIVITY 10 ng/L (3.0-53); UREA NITROGEN BLOOD 12 mg/dL (9-23)
[2023-09-23] MEDS ORDERED: ACETAMINOPHEN 325MG TABLET PO ONE (23:00)
[2023-09-24] MEDS ORDERED: ACETAMINOPHEN 325MG TABLET PO NR (02:45)
[2023-09-24 04:03] VITALS: BP 149/78; PULSE 64; RESP 18
[2023-09-24 04:05] VITALS: BP 149/78; PULSE 64; RESP 18; TEMP 97.8
[2023-09-24] MEDS ORDERED: ONDANSETRON HCL 4MG/2ML INJ IV PRN (06:30)
[2023-09-24] MEDS ORDERED: TRAMADOL 50MG TABLET PO PRN (06:30)
[2023-09-24] MEDS ORDERED: DOCUSATE SODIUM 100MG CAPSULE PO PRN (06:30)
[2023-09-24] MEDS ORDERED: ACETAMINOPHEN 325MG TABLET PO PRN (06:30)
[2023-09-24 08:00] VITALS: BP 126/52; PULSE 63; RESP 17; TEMP 97.8
[2023-09-24] MEDS: HYDROMORPHONE HCL/PF 2MG/ML CPJ IV PRN ×2 (08:33→19:48)
[2023-09-24] MEDS: ENOXAPARIN 30MG/0.3ML SYR SUBCUT SCH ×2 (08:36→21:47)
[2023-09-24] MEDS ORDERED: NALOXONE HCL 0.4MG/ML VIAL IV PRN (11:00)
[2023-09-24 12:00] VITALS: BP 165/89; PULSE 63; RESP 22; TEMP 97.6
[2023-09-24] MEDS: DEXT 5%/0.45% NACL 1000ML 1,000 ML IV SCH ×2 (12:13→21:34)
[2023-09-24 16:00] VITALS: BP 135/75; PULSE 57; RESP 15; TEMP 97.6
[2023-09-24 19:45] VITALS: BP 146/85; PULSE 62; RESP 18; TEMP 97.9
[2023-09-25 00:15] VITALS: BP 158/80; PULSE 64; RESP 19; TEMP 97.3
[2023-09-25 04:00] VITALS: BP 146/80; PULSE 61; RESP 15; TEMP 97.6
[2023-09-25 07:56] LABS: HEMATOCRIT. 38.7 % (42.0-52.0); LYMPHOCYTES % 21.3 % (20.0-50.0); MEAN CORPUSCULAR HEMOGLOBIN 28.4 pg (28.0-32.0); MEAN CORPUSCULAR HGB CONC 33.6 g/dL (31.0-37.0); MEAN CORPUSCULAR VOLUME 84.6 fL (80.0-94.0); MEAN PLATELET VOLUME 9.4 fl (7.4-10.4); NEUTROPHILS % 67.7 % (40.0-76.0); PLATELET 197 x1000/uL (130-400); RED BLOOD CELL COUNT 4.57 mill/uL (4.7-6.1); RED CELL DISTRIBUTION WIDTH 16.4 % (11.6-14.6); WHITE BLOOD COUNT 5.7 x1000/uL (4.5-11.0)
[2023-09-25 08:00] VITALS: PULSE 61; RESP 16; TEMP 98.2
[2023-09-25] MEDS: ENOXAPARIN 30MG/0.3ML SYR SUBCUT SCH ×2 (08:17→21:50)
[2023-09-25 08:18] LABS: ALANINE AMINOTRANSFERASE 52 IU/L (10-49); ALBUMIN 3.9 g/dL (3.2-4.8); ASPARTATE AMINOTRANSFERASE 41 IU/L (<34); BILIRUBIN TOTAL 0.3 mg/dL (0.1-1.0); CALCIUM 9.6 mg/dL (8.7-10.4); CARBON DIOXIDE 29 mEq/L (21-32); CHLORIDE 105 mEq/L (98-107); CHOLESTEROL 130 mg/dL (<200); CREATININE 0.9 mg/dL (0.6-1.3); GLUCOSE 151 mg/dL (70-105); HDL CHOLESTEROL 36 mg/dL (>55); LDL CHOLESTEROL 79 mg/dL (5-100); POTASSIUM 4.6 mEq/L (3.5-5.1); PROTEIN TOTAL 6.9 g/dL (6.0-8.3); SODIUM 141 mEq/L (136-145); TRIGLYCERIDE 148 mg/dL (0-150); UREA NITROGEN BLOOD 9 mg/dL (9-23)
[2023-09-25] MEDS: DEXT 5%/0.45% NACL 1000ML 1,000 ML IV SCH ×2 (09:48→21:51)
[2023-09-25 12:00] VITALS: BP 137/91; PULSE 61; RESP 16; TEMP 97.6
[2023-09-25 16:00] VITALS: BP 144/68; RESP 16; TEMP 98.6
[2023-09-25 20:00] VITALS: BP 144/68; PULSE 58; RESP 18; TEMP 98.6
[2023-09-26] VITALS: BP 179/63; PULSE 61; RESP 18; TEMP 97.2
[2023-09-26 04:00] VITALS: BP 160/85; PULSE 61; RESP 20; TEMP 97.8
[2023-09-26 04:55] VITALS: BP 143/79; PULSE 61; TEMP 97.8; O2SAT 97
[2023-09-26] MEDS: ENOXAPARIN 30MG/0.3ML SYR SUBCUT SCH (06:24)
[2023-09-26 08:00] VITALS: BP 146/92; PULSE 67; RESP 15; TEMP 97.8
== END 2023-09-26 11:13 | disposition home health service (06) | DRG 251 ==
LOC: ER 19:16 → 3WST 09-24 01:13 → EDBEDREQ 09-24 01:14
PROVIDERS: ADMIT Hospitalist; ATTEND Hospitalist
PROC: 5A09357 Assistance with Respiratory Ventilation, Less than 24 Consecutive Hours, Continuous Positive Airway Pressure (ICD-10-PCS; principal; 2023-09-24)
DX: R10.84 Generalized abdominal pain (principal); D68.59 Other primary thrombophilia; I50.9 Heart failure, unspecified; I11.0 Hypertensive heart disease with heart failure; D64.9 Anemia, unspecified; E11.9 Type 2 diabetes mellitus without complications; E78.00 Pure hypercholesterolemia, unspecified; G89.29 Other chronic pain; I48.91 Unspecified atrial fibrillation; J44.9 Chronic obstructive pulmonary disease, unspecified; Z79.01 Long term (current) use of anticoagulants; Z82.49 Family history of ischemic heart disease and other diseases of the circulatory system; Z83.3 Family history of diabetes mellitus
CPT/HCPCS: 36415; 71045; 80053; 80061; 82962; 84484; 85025; 93005; 93970; 99285; J1170; J1650; J2405

== ENCOUNTER 2023-11-26 20:24 | Emergency (ER) | payer MEDICARE, MEDICAID ==
[~2023-11-26] VITALS: Ht 182.9 cm; Wt 100.0 kg
[~2023-11-26 20:24] MED LIST changes: -ALBU6.7H3 INH; -AMI2 PO; -ATOR10TA PO; +CHOLECALCIFEROL PO; +DAPA5TAB MT; -DILT-27 PO; +DILT180C87 MT; +DOCU250C14 PO; -ERGO400C PO; -FURO-152 PO; -METF-873 PO; -OMEP20CA14 PO; -TRAZ-252 PO
[2023-11-26 20:35] VITALS: BP 147/69; PULSE 80; RESP 18; TEMP 97.9; O2SAT 98
[2023-11-26] MEDS ORDERED: MAGNESIUM/ALUMINUM HYDROXIDE/SIMETHICONE 30ML UDC PO STA (20:39)
[2023-11-26] MEDS ORDERED: FAMOTIDINE 20MG TABLET PO ONE (20:45)
[2023-11-26] MEDS ORDERED: VISCOUS LIDOCAINE 2% 15 ML UDC PO NR (20:45)
[2023-11-26 23:33] LABS: EOSINOPHILS % 2.8 % (0.0-5.0); HEMATOCRIT. 39.8 % (42.0-52.0); LYMPHOCYTES % 28.2 % (20.0-50.0); MEAN CORPUSCULAR HEMOGLOBIN 27.5 pg (28.0-32.0); MEAN CORPUSCULAR HGB CONC 32.8 g/dL (31.0-37.0); MEAN CORPUSCULAR VOLUME 84.1 fL (80.0-94.0); MEAN PLATELET VOLUME 9.1 fl (7.4-10.4); MONOCYTES % 7.9 % (2.0-8.0); NEUTROPHILS % 60.1 % (40.0-76.0); PLATELET 261 x1000/uL (130-400); RED BLOOD CELL COUNT 4.73 mill/uL (4.7-6.1); RED CELL DISTRIBUTION WIDTH 15.6 % (11.6-14.6); WHITE BLOOD COUNT 7.6 x1000/uL (4.5-11.0)
[2023-11-26 23:53] LABS: ALANINE AMINOTRANSFERASE 48 IU/L (10-49); ALBUMIN 4.6 g/dL (3.2-4.8); ASPARTATE AMINOTRANSFERASE 26 IU/L (<34); BILIRUBIN TOTAL 0.3 mg/dL (0.1-1.0); CALCIUM 10.3 mg/dL (8.7-10.4); CARBON DIOXIDE 26 mEq/L (21-32); CHLORIDE 102 mEq/L (98-107); GLUCOSE 159 mg/dL (70-105); POTASSIUM 3.5 mEq/L (3.5-5.1); PROTEIN TOTAL 7.8 g/dL (6.0-8.3); SODIUM 137 mEq/L (136-145); TROPONIN I HIGH SENSITIVITY 9 ng/L (3.0-53); UREA NITROGEN BLOOD 19 mg/dL (9-23)
== END 2023-11-27 03:34 | disposition left against medical advice (07) ==
LOC: ER 20:24
DX: R11.2 Nausea with vomiting, unspecified (principal); I48.91 Unspecified atrial fibrillation; E11.9 Type 2 diabetes mellitus without complications; I10 Essential (primary) hypertension; Z79.899 Other long term (current) drug therapy
CPT/HCPCS: 36415; 80053; 84484; 85025; 99291

== ENCOUNTER 2024-01-07 19:14 | Emergency (ER) | payer MEDICARE, MEDICAID ==
[~2024-01-07] VITALS: Ht 170.2 cm; Wt 78.0 kg
[2024-01-07 19:18] VITALS: O2SAT 98
[2024-01-07] MEDS: IBUPROFEN 400MG TABLET PO ONE (20:28)
[2024-01-07 21:28] LABS: BASOPHILS % 0.9 % (0.0-2.0); EOSINOPHILS % 3.4 % (0.0-5.0); HEMATOCRIT. 40.8 % (42.0-52.0); HEMOGLOBIN. 13.6 g/dL (14.0-18.0); LYMPHOCYTES % 23.6 % (20.0-50.0); MEAN CORPUSCULAR HEMOGLOBIN 28.1 pg (28.0-32.0); MEAN CORPUSCULAR HGB CONC 33.4 g/dL (31.0-37.0); MONOCYTES % 7.4 % (2.0-8.0); NEUTROPHILS % 64.7 % (40.0-76.0); PLATELET 225 x1000/uL (130-400); RED BLOOD CELL COUNT 4.86 mill/uL (4.7-6.1); RED CELL DISTRIBUTION WIDTH 15.9 % (11.6-14.6); WHITE BLOOD COUNT 8.7 x1000/uL (4.5-11.0)
[2024-01-07 21:42] LABS: ALANINE AMINOTRANSFERASE 22 IU/L (10-49); ALBUMIN 4.5 g/dL (3.2-4.8); ASPARTATE AMINOTRANSFERASE 21 IU/L (<34); BILIRUBIN TOTAL 0.3 mg/dL (0.1-1.0); CALCIUM 9.8 mg/dL (8.7-10.4); CARBON DIOXIDE 24 mEq/L (21-32); CHLORIDE 106 mEq/L (98-107); GLUCOSE 112 mg/dL (70-105); POTASSIUM 3.8 mEq/L (3.5-5.1); SODIUM 137 mEq/L (136-145); UREA NITROGEN BLOOD 13 mg/dL (9-23); URIC ACID 3.4 mg/dL (3.7-9.2)
[2024-01-07] MEDS ORDERED: CLIN-194 MT (21:56)
[2024-01-07] MEDS ORDERED: TOPUD MT (21:56)
[2024-01-07 22:10] VITALS: BP 155/74; PULSE 73; RESP 18; TEMP 97.5
[2024-01-12] MEDS ORDERED: SULF1TAB48 MT (11:58)
== END 2024-01-07 22:10 | disposition home or self-care (01) ==
LOC: ER 19:14
DX: L03.116 Cellulitis of left lower limb (principal); E11.9 Type 2 diabetes mellitus without complications; I10 Essential (primary) hypertension; I25.2 Old myocardial infarction; Z90.49 Acquired absence of other specified parts of digestive tract; Z98.890 Other specified postprocedural states
CPT/HCPCS: 36415; 73560; 80053; 84550; 85025; 93971; 99284

== ENCOUNTER 2024-02-02 17:11 | Emergency (ER) | payer MEDICARE, MEDICAID ==
[~2024-02-02] VITALS: Ht 177.8 cm; Wt 91.0 kg
[~2024-02-02 17:11] MED LIST changes: -FLUT1AER INH; +SULF1TAB48 MT; +TOPUD MT
[2024-02-02 17:13] VITALS: TEMP 97.2; O2SAT 99
[2024-02-02 18:18] LABS: BASOPHILS % 0.4 % (0.0-2.0); EOSINOPHILS % 4.7 % (0.0-5.0); HEMATOCRIT. 39.6 % (42.0-52.0); LYMPHOCYTES % 31.9 % (20.0-50.0); MEAN CORPUSCULAR HEMOGLOBIN 27.4 pg (28.0-32.0); MEAN CORPUSCULAR HGB CONC 32.8 g/dL (31.0-37.0); MEAN CORPUSCULAR VOLUME 83.5 fL (80.0-94.0); MEAN PLATELET VOLUME 8.8 fl (7.4-10.4); MONOCYTES % 9.3 % (2.0-8.0); NEUTROPHILS % 53.7 % (40.0-76.0); PLATELET 221 x1000/uL (130-400); RED BLOOD CELL COUNT 4.74 mill/uL (4.7-6.1); RED CELL DISTRIBUTION WIDTH 15.8 % (11.6-14.6); WHITE BLOOD COUNT 6.3 x1000/uL (4.5-11.0)
[2024-02-02] MEDS: SODIUM CHLORIDE 0.9% 1,000 ML IV ONE (18:35)
[2024-02-02 18:39] LABS: ALANINE AMINOTRANSFERASE 22 IU/L (10-49); ALBUMIN 4.7 g/dL (3.2-4.8); ASPARTATE AMINOTRANSFERASE 19 IU/L (<34); BILIRUBIN TOTAL 0.3 mg/dL (0.1-1.0); CARBON DIOXIDE 24 mEq/L (21-32); CHLORIDE 105 mEq/L (98-107); CREATININE 0.9 mg/dL (0.6-1.3); GLUCOSE 171 mg/dL (70-105); POTASSIUM 4.2 mEq/L (3.5-5.1); PROTEIN TOTAL 8.4 g/dL (6.0-8.3); SODIUM 133 mEq/L (136-145); TROPONIN I HIGH SENSITIVITY 7 ng/L (3.0-53); UREA NITROGEN BLOOD 12 mg/dL (9-23)
[2024-02-02 21:52] VITALS: BP 155/90; PULSE 72; RESP 16
== END 2024-02-02 21:57 | disposition home or self-care (01) ==
LOC: ER 17:11
DX: E11.65 Type 2 diabetes mellitus with hyperglycemia (principal); I25.2 Old myocardial infarction; I10 Essential (primary) hypertension; J44.1 Chronic obstructive pulmonary disease with (acute) exacerbation; E78.00 Pure hypercholesterolemia, unspecified; Z00.00 Encounter for general adult medical examination without abnormal findings; Z79.899 Other long term (current) drug therapy; Z79.82 Long term (current) use of aspirin; Z98.890 Other specified postprocedural states; Z90.49 Acquired absence of other specified parts of digestive tract
CPT/HCPCS: 80053; 82962; 85025; 84484; 36415; 70450; 96360; 99284; J7030; Z7610; C1893

== ENCOUNTER 2024-02-05 17:29 | Emergency (ER) | payer MEDICARE, MEDICAID ==
[~2024-02-05] VITALS: Ht 172.7 cm; Wt 81.0 kg
[2024-02-05 17:57] VITALS: O2SAT 99
[2024-02-05 19:33] LABS: BASOPHILS % 0.9 % (0.0-2.0); HEMATOCRIT. 38.8 % (42.0-52.0); LYMPHOCYTES % 27.4 % (20.0-50.0); MEAN CORPUSCULAR HEMOGLOBIN 27.9 pg (28.0-32.0); MEAN CORPUSCULAR HGB CONC 33.4 g/dL (31.0-37.0); MEAN CORPUSCULAR VOLUME 83.5 fL (80.0-94.0); MEAN PLATELET VOLUME 8.9 fl (7.4-10.4); MONOCYTES % 8.9 % (2.0-8.0); NEUTROPHILS % 58.8 % (40.0-76.0); PLATELET 231 x1000/uL (130-400); RED BLOOD CELL COUNT 4.65 mill/uL (4.7-6.1); RED CELL DISTRIBUTION WIDTH 15.5 % (11.6-14.6); WHITE BLOOD COUNT 6.8 x1000/uL (4.5-11.0)
[2024-02-05 19:36] LABS: CHLORIDE 105 mEq/L (98-107); POTASSIUM 3.9 mEq/L (3.5-5.1); SODIUM 134 mEq/L (136-145)
[2024-02-05 19:37] LABS: CALCIUM 9.5 mg/dL (8.7-10.4); CARBON DIOXIDE 22 mEq/L (21-32)
[2024-02-05 19:42] LABS: GLUCOSE 166 mg/dL (70-105); UREA NITROGEN BLOOD 20 mg/dL (9-23)
[2024-02-05 19:43] LABS: TROPONIN I HIGH SENSITIVITY 7 ng/L (3.0-53)
[2024-02-05 19:44] LABS: ALANINE AMINOTRANSFERASE 17 IU/L (10-49); ALBUMIN 4.5 g/dL (3.2-4.8); ASPARTATE AMINOTRANSFERASE 18 IU/L (<34); BILIRUBIN TOTAL 0.3 mg/dL (0.1-1.0)
[2024-02-05 19:45] LABS: PROTEIN TOTAL 8.1 g/dL (6.0-8.3)
[2024-02-05] MEDS ORDERED: MECL-299 MT (21:32)
[2024-02-05 21:38] VITALS: BP 162/87; PULSE 73; RESP 16; TEMP 98.4
== END 2024-02-05 21:56 | disposition home or self-care (01) ==
LOC: ER 17:29
DX: E11.65 Type 2 diabetes mellitus with hyperglycemia (principal); I48.91 Unspecified atrial fibrillation; J44.9 Chronic obstructive pulmonary disease, unspecified; E78.00 Pure hypercholesterolemia, unspecified; I10 Essential (primary) hypertension; I25.2 Old myocardial infarction; Z90.49 Acquired absence of other specified parts of digestive tract; Z79.899 Other long term (current) drug therapy
CPT/HCPCS: 36415; 71045; 80053; 82962; 84484; 85025; 99283

== ENCOUNTER 2024-02-26 17:41 | Emergency (ER) | payer MEDICARE, MEDICAID ==
[~2024-02-26] VITALS: Ht 170.2 cm; Wt 74.0 kg
[~2024-02-26 17:41] MED LIST changes: +MECL-299 MT; -SULF1TAB48 MT
[2024-02-26 17:51] VITALS: TEMP 98.6; O2SAT 100
[2024-02-26 18:42] LABS: BASOPHILS % 2.1 % (0.0-2.0); EOSINOPHILS % 4.4 % (0.0-5.0); HEMATOCRIT. 38.2 % (42.0-52.0); HEMOGLOBIN. 12.7 g/dL (14.0-18.0); LYMPHOCYTES % 30.4 % (20.0-50.0); MEAN CORPUSCULAR HEMOGLOBIN 27.1 pg (28.0-32.0); MEAN CORPUSCULAR HGB CONC 33.3 g/dL (31.0-37.0); MEAN CORPUSCULAR VOLUME 81.5 fL (80.0-94.0); MEAN PLATELET VOLUME 9.3 fl (7.4-10.4); MONOCYTES % 9.5 % (2.0-8.0); NEUTROPHILS % 53.6 % (40.0-76.0); PLATELET 214 x1000/uL (130-400); RED BLOOD CELL COUNT 4.69 mill/uL (4.7-6.1); RED CELL DISTRIBUTION WIDTH 15.6 % (11.6-14.6); WHITE BLOOD COUNT 6.2 x1000/uL (4.5-11.0)
[2024-02-26 18:44] LABS: CHLORIDE 106 mEq/L (98-107); SODIUM 136 mEq/L (136-145)
[2024-02-26 18:45] LABS: CALCIUM 10.3 mg/dL (8.7-10.4); CARBON DIOXIDE 22 mEq/L (21-32)
[2024-02-26 18:50] LABS: CREATININE 1.2 mg/dL (0.6-1.3); UREA NITROGEN BLOOD 19 mg/dL (9-23)
[2024-02-26 18:52] LABS: CLARITY URINE CLEAR (CLEAR); COLOR URINE YELLOW (YELLOW); GLUCOSE URINE 3+ (NEGATIVE); KETONES URINE NEGATIVE (NEGATIVE); LEUKOCYTE ESTERASE URINE NEGATIVE (NEGATIVE); NITRITE URINE NEGATIVE (NEGATIVE); OCCULT BLOOD URINE NEGATIVE (NEGATIVE); PH URINE 5.5 (4.5-8.0); PROTEIN URINE NEGATIVE (NEGATIVE); SPECIFIC GRAVITY URINE 1.012 (1.005-1.030); UROBILINOGEN URINE 0.2 E.U./dL (0.2-1.0)
[2024-02-26 18:52] LABS: ALANINE AMINOTRANSFERASE 13 IU/L (10-49); ALBUMIN 4.4 g/dL (3.2-4.8); ASPARTATE AMINOTRANSFERASE 16 IU/L (<34); BILIRUBIN DIRECT 0.1 mg/dL (<=3.0); BILIRUBIN TOTAL 0.4 mg/dL (0.1-1.0); PROTEIN TOTAL 7.6 g/dL (6.0-8.3)
[2024-02-26 19:05] LABS: GLUCOSE 113 mg/dL (70-105)
[2024-02-26 19:09] LABS: RBC URINE NONE SEEN /hpf (0-2); SQUAMOUS EPITHELIAL CELL URINE FEW /lpf (RARE/1+); WBC URINE 0-2 /hpf (0-2)
[2024-02-26 19:10] LABS: BACTERIA URINE TRACE
[2024-02-26 19:52] VITALS: BP 182/95; PULSE 83; RESP 19
[2024-02-26] MEDS ORDERED: AMLODIPINE 10MG TABLET PO ONE (21:00)
[2024-02-26] MEDS: AMLODIPINE 5MG TABLET PO NR (21:15)
== END 2024-02-26 21:42 | disposition home or self-care (01) ==
LOC: ER 17:41
DX: I10 Essential (primary) hypertension (principal); G62.9 Polyneuropathy, unspecified; I48.91 Unspecified atrial fibrillation; J44.9 Chronic obstructive pulmonary disease, unspecified; E78.00 Pure hypercholesterolemia, unspecified; I25.2 Old myocardial infarction; Z90.49 Acquired absence of other specified parts of digestive tract; Z79.899 Other long term (current) drug therapy
CPT/HCPCS: 36415; 80048; 80076; 81003; 82962; 85025; 93005; 99284

== ENCOUNTER 2024-04-13 14:52 | Inpatient (IN) | payer MEDICARE, MEDICAID ==
[~2024-04-13] VITALS: Ht 175.3 cm; Wt 79.4 kg
[~2024-04-13 14:52] MED LIST changes: -ASPI-1497 PO; +LIP40 MT; -TOPUD MT
[2024-04-13] MEDS: SODIUM CHLORIDE 0.9% 1,000 ML IV ONE (19:11)
[2024-04-13 20:40] LABS: BASOPHILS % 0.8 % (0.0-2.0); EOSINOPHILS % 1.8 % (0.0-5.0); HEMATOCRIT. 33.2 % (42.0-52.0); MEAN CORPUSCULAR HEMOGLOBIN 27.5 pg (28.0-32.0); MEAN CORPUSCULAR HGB CONC 33.3 g/dL (31.0-37.0); MEAN CORPUSCULAR VOLUME 82.8 fL (80.0-94.0); MEAN PLATELET VOLUME 8.4 fl (7.4-10.4); MONOCYTES % 7.7 % (2.0-8.0); NEUTROPHILS % 67.7 % (40.0-76.0); PLATELET 329 x1000/uL (130-400); RED BLOOD CELL COUNT 4.01 mill/uL (4.7-6.1); RED CELL DISTRIBUTION WIDTH 16.5 % (11.6-14.6); WHITE BLOOD COUNT 8.6 x1000/uL (4.5-11.0)
[2024-04-13 20:49] LABS: CHLORIDE 104 mEq/L (98-107); POTASSIUM 3.8 mEq/L (3.5-5.1); SODIUM 134 mEq/L (136-145)
[2024-04-13 20:50] LABS: CARBON DIOXIDE 22 mEq/L (21-32)
[2024-04-13 20:51] LABS: CALCIUM 9.4 mg/dL (8.7-10.4)
[2024-04-13 20:55] LABS: CREATININE 0.9 mg/dL (0.6-1.3)
[2024-04-13 20:56] LABS: TROPONIN I HIGH SENSITIVITY 8 ng/L (3.0-53); UREA NITROGEN BLOOD 12 mg/dL (9-23)
[2024-04-13 20:58] LABS: GLUCOSE 366 mg/dL (70-105)
[2024-04-13 21:16] LABS: BETA HYDROXYBUTYRATE < 0.1 mMol/L (0.0-0.3)
[2024-04-14] MEDS ORDERED: IPRATROPIUM/ALBUTEROL 0.5-3(2.5)MG/3ML NEB HHN PRN (01:30)
[2024-04-14] MEDS ORDERED: DOCUSATE SODIUM 100MG CAPSULE PO PRN (01:30)
[2024-04-14] MEDS ORDERED: ONDANSETRON HCL 4MG/2ML INJ IV PRN (01:30)
[2024-04-14] MEDS ORDERED: ACETAMINOPHEN 325MG TABLET PO PRN (01:30)
[2024-04-14] MEDS ORDERED: HYDRALAZINE 20MG/ML VIAL IV PRN (03:45)
[2024-04-14] MEDS ORDERED: DEXTROSE 50% WATER 50ML SYRINGE IV PRN ×2 (03:45→13:00)
[2024-04-14 05:03] LABS: IRON 56 ug/dL (65-175)
[2024-04-14 05:05] LABS: PHOSPHORUS 2.6 mg/dL (2.5-4.9)
[2024-04-14 05:06] LABS: TOTAL IRON BINDING CAPACITY 372 ug/dl (250-425)
[2024-04-14] MEDS: SODIUM CHLORIDE 0.45% 1,000 ML IV SCH (05:06)
[2024-04-14 05:07] LABS: CREATINE KINASE MB FRACTION < 0.5 ng/mL (0.5-3.6)
[2024-04-14 05:08] LABS: TROPONIN I HIGH SENSITIVITY 11 ng/L (3.0-53)
[2024-04-14 05:09] LABS: CREATINE KINASE 22 IU/L (46-171)
[2024-04-14 05:53] LABS: FERRITIN 53 ng/mL (22-322)
[2024-04-14 05:54] LABS: FOLIC ACID (FOLATE) SERUM 12.61 ng/mL (>5.38); VITAMIN B12 SERUM 384 pg/mL (211-911)
[2024-04-14] MEDS: MAGNESIUM 1 G PREMIX 100 ML IV NR (08:49)
[2024-04-14] MEDS: BLOOD SUGAR DIAGNOSTIC STRIP TEST SCH (08:55)
[2024-04-14] MEDS: INSULIN LISPRO 100 UNITS/ML SUBCUT SCH ×3 (09:00→17:51)
[2024-04-14] MEDS: LOSARTAN 25 MG TABLET PO SCH (09:01)
[2024-04-14] MEDS: ASPIRIN 81MG TABLET PO SCH (09:01)
[2024-04-14] MEDS: CARVEDILOL 3.125 MG TABLET PO SCH (09:01)
[2024-04-14] MEDS: CLOPIDOGREL 75MG TABLET PO SCH (09:02)
[2024-04-14] MEDS: TAMSULOSIN HCL 0.4MG SR CAPSULE PO SCH (09:02)
[2024-04-14] MEDS: FUROSEMIDE 20MG TABLET PO SCH (09:02)
[2024-04-14] MEDS: FINASTERIDE 5MG TABLET PO SCH (09:03)
[2024-04-14] MEDS: INSULIN GLARGINE 100 UNITS/ML SUBCUT SCH ×2 (09:48→21:00)
[2024-04-14 12:44] VITALS: BP 171/86; PULSE 83; RESP 18; TEMP 96.7
[2024-04-14 12:46] VITALS: BP 171/86; PULSE 83; RESP 18; TEMP 96.7
[2024-04-14 12:57] VITALS: BP 171/86; PULSE 83; RESP 18; TEMP 96.7
[2024-04-14] MEDS ORDERED: FUROSEMIDE 20MG TABLET PO SCH (13:00)
[2024-04-14 14:54] LABS: CLARITY URINE TURBID (CLEAR); COLOR URINE YELLOW (YELLOW); GLUCOSE URINE 2+ (NEGATIVE); KETONES URINE NEGATIVE (NEGATIVE); LEUKOCYTE ESTERASE URINE 3+ (NEGATIVE); NITRITE URINE POSITIVE (NEGATIVE); OCCULT BLOOD URINE 1+ (NEGATIVE); PH URINE 6.5 (4.5-8.0); PROTEIN URINE TRACE (NEGATIVE); SPECIFIC GRAVITY URINE 1.009 (1.005-1.030); UROBILINOGEN URINE 0.2 E.U./dL (0.2-1.0)
[2024-04-14 14:55] LABS: EOSINOPHILS % 2.2 % (0.0-5.0); HEMATOCRIT. 32.6 % (42.0-52.0); HEMOGLOBIN. 10.7 g/dL (14.0-18.0); LYMPHOCYTES % 21.2 % (20.0-50.0); MEAN CORPUSCULAR HEMOGLOBIN 27.5 pg (28.0-32.0); MEAN CORPUSCULAR HGB CONC 32.7 g/dL (31.0-37.0); MEAN CORPUSCULAR VOLUME 83.9 fL (80.0-94.0); MEAN PLATELET VOLUME 8.7 fl (7.4-10.4); MONOCYTES % 7.5 % (2.0-8.0); NEUTROPHILS % 68.1 % (40.0-76.0); PLATELET 307 x1000/uL (130-400); RED BLOOD CELL COUNT 3.88 mill/uL (4.7-6.1); RED CELL DISTRIBUTION WIDTH 16.5 % (11.6-14.6)
[2024-04-14 15:06] LABS: SODIUM URINE RANDOM 79 mEq/L
[2024-04-14 15:06] LABS: POTASSIUM 4.2 mEq/L (3.5-5.1)
[2024-04-14 15:07] LABS: CALCIUM 9.2 mg/dL (8.7-10.4)
[2024-04-14 15:12] LABS: CREATINE KINASE MB FRACTION 0.7 ng/mL (0.5-3.6); CREATININE 1.3 mg/dL (0.6-1.3)
[2024-04-14 15:13] LABS: *AMPHETAMINES SCREEN URINE NEGATIVE (NEGATIVE); *BARBITURATES SCREEN URINE NEGATIVE (NEGATIVE); *COCAINE SCREEN URINE NEGATIVE (NEGATIVE)
[2024-04-14 15:14] LABS: ECSTASY MDMA SCREEN URINE NEGATIVE (NEGATIVE); METHADONE URINE SCREEN NEGATIVE (NEGATIVE); OPIATES URINE SCREEN NEGATIVE (NEGATIVE)
[2024-04-14] MEDS: ATORVASTATIN CALCIUM 40MG TABLET PO SCH (15:27)
[2024-04-14] MEDS: DILTIAZEM HCL 180MG CAPSULE ER 24HR PO SCH (15:28)
[2024-04-14] MEDS: MAGNESIUM 2 G PREMIX 50 ML IV NR (15:28)
[2024-04-14 15:40] LABS: OSMOLALITY URINE 301 mOsm/kg (500-850)
[2024-04-14 15:53] LABS: *BENZODIAZEPINES SCREEN URINE NEGATIVE (NEGATIVE); CANNABINOID URINE SCREEN NEGATIVE (NEGATIVE); PHENCYCLIDINE URINE SCREEN NEGATIVE (NEGATIVE)
[2024-04-14 16:00] VITALS: BP 130/77; PULSE 95; RESP 22; TEMP 98
[2024-04-14 17:01] LABS: BACTERIA URINE 4+; RBC URINE 15-25 /hpf (0-2); SQUAMOUS EPITHELIAL CELL URINE RARE /lpf (RARE/1+); WBC URINE TNTC /hpf (0-2)
[2024-04-14] MEDS: DOCUSATE SODIUM 250MG CAPSULE PO PRN (17:47)
[2024-04-14 20:00] VITALS: BP 109/59; PULSE 58; RESP 21; TEMP 98
[2024-04-14] MEDS ORDERED: ATORVASTATIN CALCIUM 10MG TABLET PO SCH (21:00)
[2024-04-14] MEDS: CEFTRIAXONE 1GM/50ML 50 ML IV SCH (21:55)
[2024-04-14] MEDS: APIXABAN 5 MG TABLET PO SCH (21:55)
[2024-04-15] VITALS: BP 129/66; PULSE 62; RESP 22; TEMP 98.5
[2024-04-15 04:00] VITALS: BP 113/63; PULSE 56; RESP 19; TEMP 97.5
[2024-04-15 07:16] LABS: POTASSIUM 4.2 mEq/L (3.5-5.1)
[2024-04-15 07:17] LABS: CALCIUM 9.6 mg/dL (8.7-10.4)
[2024-04-15 07:19] LABS: BASOPHILS % 0.8 % (0.0-2.0); HEMATOCRIT. 34.3 % (42.0-52.0); HEMOGLOBIN. 11.3 g/dL (14.0-18.0); LYMPHOCYTES % 14.7 % (20.0-50.0); MEAN CORPUSCULAR HEMOGLOBIN 27.2 pg (28.0-32.0); MEAN CORPUSCULAR VOLUME 82.5 fL (80.0-94.0); MEAN PLATELET VOLUME 8.7 fl (7.4-10.4); MONOCYTES % 5.2 % (2.0-8.0); NEUTROPHILS % 78.3 % (40.0-76.0); PLATELET 330 x1000/uL (130-400); RED BLOOD CELL COUNT 4.16 mill/uL (4.7-6.1); RED CELL DISTRIBUTION WIDTH 16.8 % (11.6-14.6); WHITE BLOOD COUNT 9.8 x1000/uL (4.5-11.0)
[2024-04-15 07:22] LABS: CREATININE 1.2 mg/dL (0.6-1.3)
[2024-04-15 07:24] LABS: T4 FREE 1.14 ng/dL (0.89-1.76)
[2024-04-15 07:25] LABS: THYROID STIMULATING HORMONE 2.67 uIU/mL (0.55-4.78)
[2024-04-15 08:12] LABS: BG BASE EXCESS -0.1 mmol/L (-2.0-2.0); BG CARBOXYHEMOGLOBIN 0.5 % (0.5-1.5); BG DEOXYHEMOGLOBIN 2.9 % (0.0-5.0); BG FRACTION INSPIRED OXYGEN 21; BG HCO3 ACT 22.8 mmol/L (22.0-26.0); BG METHEMOGLOBIN 0.3 % (0.0-1.5); BG OXYGEN SATURATION 97.1 % (92.0-98.5); BG OXYHEMOGLOBIN 96.3 % (94.0-97.0); BG PCO2 31.4 mmHg (35.0-45.0); BG PH 7.478 (7.350-7.450); BG PO2 88.5 mmHg (75.0-100.0); BG SAMPLE SITE RIGHT RADIAL; BG TOTAL HEMOGLOBIN 12.3 g/dL (12.0-18.0); BG VENT MODE ROOM AIR
[2024-04-15] MEDS ORDERED: SULF1TAB48 MT (10:32)
[2024-04-15] MEDS: INSULIN GLARGINE 100 UNITS/ML SUBCUT SCH (11:46)
[2024-04-15] MEDS: APIXABAN 5 MG TABLET PO SCH (11:49)
[2024-04-15 15:57] VITALS: BP 118/69; PULSE 78; O2SAT 96
== END 2024-04-15 16:30 | disposition home or self-care (01) | DRG 420 ==
LOC: ER 14:52 → 5WST 21:17 → EDBEDREQ 22:03 → EDBEDREQTM 22:03 → 5WST 04-14 01:34 → 3WST 04-14 12:18
PROVIDERS: ADMIT Internal Medicine; ATTEND Internal Medicine
DX: E11.65 Type 2 diabetes mellitus with hyperglycemia (principal); I27.20 Pulmonary hypertension, unspecified; I50.30 Unspecified diastolic (congestive) heart failure; I11.0 Hypertensive heart disease with heart failure; D64.9 Anemia, unspecified; E78.00 Pure hypercholesterolemia, unspecified; F17.210 Nicotine dependence, cigarettes, uncomplicated; I48.91 Unspecified atrial fibrillation; N40.0 Benign prostatic hyperplasia without lower urinary tract symptoms; J44.9 Chronic obstructive pulmonary disease, unspecified; I36.1 Nonrheumatic tricuspid (valve) insufficiency; H54.62 Unqualified visual loss, left eye, normal vision right eye; I35.0 Nonrheumatic aortic (valve) stenosis; Z79.4 Long term (current) use of insulin; Z82.49 Family history of ischemic heart disease and other diseases of the circulatory system; Z83.3 Family history of diabetes mellitus; Z86.12 Personal history of poliomyelitis; Z87.11 Personal history of peptic ulcer disease; Z79.899 Other long term (current) drug therapy; I16.0 Hypertensive urgency
CPT/HCPCS: 36415; 36600; 71045; 80048; 80061; 80305; 81003; 82010; 82306; 82375; 82550; 82553; 82607; 82728; 82746; 82805; 82962; 83540; 83550; 83605; 83735; 83880; 83930; 83935; 84100; 84145; 84300; 84439; 84443; 84484; 85025; 87077; 87186; 93005; 93970; 99285; J0696; J1815; J3475; J7030

== ENCOUNTER 2024-04-20 22:53 | Emergency (ER) | payer MEDICARE, MEDICAID ==
[~2024-04-20] VITALS: Ht 167.6 cm; Wt 73.0 kg
[~2024-04-20 22:53] MED LIST changes: -FURO20TA4 PO; +SULF1TAB48 MT
[2024-04-20 23:32] VITALS: BP 123/79; PULSE 72; RESP 18; TEMP 98.4; O2SAT 97
[2024-04-20 23:45] LABS: BASOPHILS % 1.3 % (0.0-2.0); HEMATOCRIT. 35.4 % (42.0-52.0); HEMOGLOBIN. 11.6 g/dL (14.0-18.0); LYMPHOCYTES % 27.5 % (20.0-50.0); MEAN CORPUSCULAR HEMOGLOBIN 27.4 pg (28.0-32.0); MEAN CORPUSCULAR HGB CONC 32.8 g/dL (31.0-37.0); MEAN CORPUSCULAR VOLUME 83.3 fL (80.0-94.0); MEAN PLATELET VOLUME 8.7 fl (7.4-10.4); MONOCYTES % 10.9 % (2.0-8.0); NEUTROPHILS % 56.3 % (40.0-76.0); PLATELET 304 x1000/uL (130-400); RED BLOOD CELL COUNT 4.25 mill/uL (4.7-6.1); RED CELL DISTRIBUTION WIDTH 16.7 % (11.6-14.6); WHITE BLOOD COUNT 5.8 x1000/uL (4.5-11.0)
[2024-04-20 23:53] LABS: CARBON DIOXIDE 22 mEq/L (21-32); CHLORIDE 103 mEq/L (98-107); POTASSIUM 3.5 mEq/L (3.5-5.1); SODIUM 134 mEq/L (136-145)
[2024-04-20 23:54] LABS: CALCIUM 9.5 mg/dL (8.7-10.4)
[2024-04-20 23:55] LABS: PROTHROMBIN TIME 11.4 sec (9.6-11.0)
[2024-04-20 23:58] LABS: CREATININE 0.9 mg/dL (0.6-1.3)
[2024-04-20 23:59] LABS: TROPONIN I HIGH SENSITIVITY 6 ng/L (3.0-53); UREA NITROGEN BLOOD 14 mg/dL (9-23)
[2024-04-21] LABS: ALANINE AMINOTRANSFERASE 11 IU/L (10-49); ALBUMIN 4.4 g/dL (3.2-4.8); ASPARTATE AMINOTRANSFERASE 14 IU/L (<34)
[2024-04-21 00:01] LABS: BILIRUBIN DIRECT 0.1 mg/dL (<=3.0); BILIRUBIN TOTAL 0.3 mg/dL (0.1-1.0); PROTEIN TOTAL 7.7 g/dL (6.0-8.3)
[2024-04-21 00:08] LABS: GLUCOSE 149 mg/dL (70-105)
[2024-04-21] MEDS: ONDANSETRON HCL 4MG/2ML INJ IV STA (01:22)
[2024-04-21] MEDS: SODIUM CHLORIDE 0.9% 1,000 ML IV ONE (01:30)
[2024-04-21] MEDS: METOCLOPRAMIDE HCL 10MG/2ML VIAL IM ONE (01:35)
[2024-04-21 01:43] LABS: TROPONIN I HIGH SENSITIVITY 6 ng/L (3.0-53)
[2024-04-21] MEDS: METOCLOPRAMIDE HCL 10MG/2ML VIAL IV NR (01:54)
[2024-04-21] MEDS ORDERED: METO5TAB86 MT (03:20)
== END 2024-04-21 03:50 | disposition home or self-care (01) ==
LOC: ER 22:53
DX: E11.43 Type 2 diabetes mellitus with diabetic autonomic (poly)neuropathy (principal); K31.84 Gastroparesis; I48.91 Unspecified atrial fibrillation; I11.9 Hypertensive heart disease without heart failure
CPT/HCPCS: 80076; 80048; 83690; 85025; 85610; 84484 ×2; 36415 ×2; 99285; 74176; 96361; 96372; 96374; J7030; J2765; J2405; Z7610 ×2

== ENCOUNTER 2024-06-30 18:31 | Emergency (ER) | payer MEDICARE, MEDICAID ==
[~2024-06-30] VITALS: Ht 165.1 cm; Wt 68.0 kg
[~2024-06-30 18:31] MED LIST changes: +AMLO10TA80 PO; -MECL-299 MT; +ONDA4TAB50 MT; +PANT40TA51 PO; -SULF1TAB48 MT; +TRAM-534 MT
[2024-06-30 18:52] VITALS: TEMP 97.7; O2SAT 95
[2024-06-30] MEDS ORDERED: ONDANSETRON 4MG ODT PO ONE (20:30)
[2024-06-30 20:45] LABS: BASOPHILS % 0.9 % (0.0-2.0); DIFFERENTIAL COMMENT 0; HEMATOCRIT. 37.8 % (42.0-52.0); HEMOGLOBIN. 12.6 g/dL (14.0-18.0); MEAN CORPUSCULAR HEMOGLOBIN 26.4 pg (28.0-32.0); MEAN CORPUSCULAR HGB CONC 33.2 g/dL (31.0-37.0); MEAN CORPUSCULAR VOLUME 79.6 fL (80.0-94.0); MEAN PLATELET VOLUME 9.5 fl (7.4-10.4); MONOCYTES % 8.1 % (2.0-8.0); PLATELET 198 x1000/uL (130-400); RED BLOOD CELL COUNT 4.75 mill/uL (4.7-6.1); RED CELL DISTRIBUTION WIDTH 15.2 % (11.6-14.6); WHITE BLOOD COUNT 8.2 x1000/uL (4.5-11.0)
[2024-06-30 20:51] LABS: CHLORIDE 101 mEq/L (98-107); POTASSIUM 4.3 mEq/L (3.5-5.1); SODIUM 133 mEq/L (136-145)
[2024-06-30 20:52] LABS: CALCIUM 10.7 mg/dL (8.7-10.4); CARBON DIOXIDE 25 mEq/L (21-32)
[2024-06-30 20:57] LABS: GLUCOSE 182 mg/dL (70-105); UREA NITROGEN BLOOD 15 mg/dL (9-23)
[2024-06-30 20:59] LABS: ALANINE AMINOTRANSFERASE < 7 IU/L (10-49); ALBUMIN 4.6 g/dL (3.2-4.8); ASPARTATE AMINOTRANSFERASE 10 IU/L (<34); BILIRUBIN DIRECT 0.1 mg/dL (<=3.0)
[2024-06-30 21:00] LABS: BILIRUBIN TOTAL 0.4 mg/dL (0.1-1.0); PROTEIN TOTAL 8.2 g/dL (6.0-8.3)
[2024-06-30 21:52] LABS: BETA HYDROXYBUTYRATE 0.2 mMol/L (0.0-0.3)
[2024-06-30] MEDS: ONDANSETRON 4MG ODT PO NR (22:43)
[2024-06-30 22:47] VITALS: BP 147/69; PULSE 94; RESP 18; O2SAT 100
== END 2024-06-30 22:47 | disposition home or self-care (01) ==
LOC: ER 18:31
DX: E11.65 Type 2 diabetes mellitus with hyperglycemia (principal); J44.9 Chronic obstructive pulmonary disease, unspecified; I10 Essential (primary) hypertension; I48.91 Unspecified atrial fibrillation; Z79.899 Other long term (current) drug therapy
CPT/HCPCS: 99283; 80076; 80048; 82010; 83690; 85025; 36415; Q0162

== ENCOUNTER 2024-07-31 19:04 | Emergency (ER) | payer MEDICARE, MEDICAID ==
[~2024-07-31] VITALS: Ht 172.7 cm; Wt 83.0 kg
[2024-07-31 19:18] VITALS: O2SAT 99
[2024-07-31 19:19] VITALS: BP 143/81; PULSE 102; RESP 20; TEMP 98.5; O2SAT 98
[2024-07-31 20:09] LABS: BASOPHILS % 0.6 % (0.0-2.0); DIFFERENTIAL COMMENT 0; EOSINOPHILS % 1.6 % (0.0-5.0); HEMATOCRIT. 37.9 % (42.0-52.0); HEMOGLOBIN. 12.5 g/dL (14.0-18.0); LYMPHOCYTES % 15.8 % (20.0-50.0); MEAN CORPUSCULAR HEMOGLOBIN 26.3 pg (28.0-32.0); MEAN CORPUSCULAR VOLUME 79.8 fL (80.0-94.0); MEAN PLATELET VOLUME 9.4 fl (7.4-10.4); MONOCYTES % 7.3 % (2.0-8.0); NEUTROPHILS % 74.7 % (40.0-76.0); PLATELET 244 x1000/uL (130-400); RED BLOOD CELL COUNT 4.75 mill/uL (4.7-6.1); WHITE BLOOD COUNT 10.9 x1000/uL (4.5-11.0)
[2024-07-31 20:14] LABS: CHLORIDE 102 mEq/L (98-107); POTASSIUM 3.8 mEq/L (3.5-5.1); SODIUM 133 mEq/L (136-145)
[2024-07-31 20:15] LABS: CARBON DIOXIDE 22 mEq/L (21-32)
[2024-07-31 20:16] LABS: CALCIUM 10.5 mg/dL (8.7-10.4)
[2024-07-31 20:20] LABS: CREATININE 1.1 mg/dL (0.6-1.3); GLUCOSE 299 mg/dL (70-105); UREA NITROGEN BLOOD 12 mg/dL (9-23)
[2024-07-31 20:22] LABS: ALANINE AMINOTRANSFERASE < 7 IU/L (10-49); ALBUMIN 4.5 g/dL (3.2-4.8); ASPARTATE AMINOTRANSFERASE 12 IU/L (<34); BILIRUBIN DIRECT 0.2 mg/dL (<=3.0); TROPONIN I HIGH SENSITIVITY 5 ng/L (3.0-53)
[2024-07-31 20:23] LABS: BILIRUBIN TOTAL 0.6 mg/dL (0.1-1.0)
[2024-07-31 20:39] LABS: BETA HYDROXYBUTYRATE 0.2 mMol/L (0.0-0.3)
== END 2024-07-31 22:50 | disposition home or self-care (01) ==
LOC: ER 19:04
DX: R06.02 Shortness of breath (principal); I10 Essential (primary) hypertension; I48.91 Unspecified atrial fibrillation; E11.65 Type 2 diabetes mellitus with hyperglycemia; J44.9 Chronic obstructive pulmonary disease, unspecified; Z79.899 Other long term (current) drug therapy; Z79.4 Long term (current) use of insulin; Z79.01 Long term (current) use of anticoagulants; Z59.00 Homelessness unspecified; Z79.84 Long term (current) use of oral hypoglycemic drugs
CPT/HCPCS: 36415; 71045; 80048; 80076; 82010; 82962; 83880; 83930; 84484; 85025; 93005; 99285

== ENCOUNTER 2024-08-11 19:05 | Inpatient (IN) | payer MEDICARE, MEDICAID ==
[~2024-08-11] VITALS: Ht 177.8 cm; Wt 85.0 kg
[2024-08-11] MEDS: SODIUM CHLORIDE 0.9% 1,000 ML IV ONE ×2 (20:00→22:07)
[2024-08-11 20:37] LABS: BASOPHILS % 0.6 % (0.0-2.0); DIFFERENTIAL COMMENT 0; EOSINOPHILS % 2.9 % (0.0-5.0); HEMATOCRIT. 40.8 % (42.0-52.0); HEMOGLOBIN. 13.7 g/dL (14.0-18.0); LYMPHOCYTES % 25.9 % (20.0-50.0); MEAN CORPUSCULAR HEMOGLOBIN 26.7 pg (28.0-32.0); MEAN CORPUSCULAR HGB CONC 33.4 g/dL (31.0-37.0); MEAN CORPUSCULAR VOLUME 79.9 fL (80.0-94.0); MEAN PLATELET VOLUME 9.3 fl (7.4-10.4); MONOCYTES % 6.7 % (2.0-8.0); NEUTROPHILS % 63.9 % (40.0-76.0); PLATELET 245 x1000/uL (130-400); RED BLOOD CELL COUNT 5.11 mill/uL (4.7-6.1); RED CELL DISTRIBUTION WIDTH 15.5 % (11.6-14.6)
[2024-08-11 20:42] LABS: POTASSIUM 4.2 mEq/L (3.5-5.1)
[2024-08-11 20:43] LABS: CALCIUM 10.5 mg/dL (8.7-10.4)
[2024-08-11 20:48] LABS: CREATININE 1.2 mg/dL (0.6-1.3)
[2024-08-11 20:51] LABS: BETA HYDROXYBUTYRATE 0.1 mMol/L (0.0-0.3)
[2024-08-11] MEDS ORDERED: DEXTROSE 50% WATER 50ML SYRINGE IV PRN (21:30)
[2024-08-11 22:00] LABS: CLARITY URINE CLEAR (CLEAR); COLOR URINE YELLOW (YELLOW); GLUCOSE URINE 3+ (NEGATIVE); KETONES URINE NEGATIVE (NEGATIVE); LEUKOCYTE ESTERASE URINE NEGATIVE (NEGATIVE); NITRITE URINE NEGATIVE (NEGATIVE); OCCULT BLOOD URINE NEGATIVE (NEGATIVE); PROTEIN URINE NEGATIVE (NEGATIVE); SPECIFIC GRAVITY URINE 1.029 (1.005-1.030)
[2024-08-11 22:12] LABS: BACTERIA URINE NONE SEEN; RBC URINE 0-2 /hpf (0-2); SQUAMOUS EPITHELIAL CELL URINE RARE /lpf (RARE/1+)
[2024-08-11 23:29] LABS: TROPONIN I HIGH SENSITIVITY 7 ng/L (3.0-53)
[2024-08-12] VITALS: BP 163/84; PULSE 98; RESP 18; TEMP 36.3918; O2SAT 96
[2024-08-12] MEDS ORDERED: DEXTROSE 50% WATER 50ML SYRINGE IV PRN (00:15)
[2024-08-12] MEDS ORDERED: ONDANSETRON HCL 4MG/2ML INJ IV PRN (00:15)
[2024-08-12] MEDS ORDERED: IPRATROPIUM/ALBUTEROL 0.5-3(2.5)MG/3ML NEB HHN PRN (00:15)
[2024-08-12] MEDS ORDERED: DOCUSATE SODIUM 250MG CAPSULE PO PRN (00:15)
[2024-08-12] MEDS ORDERED: CLONIDINE 0.1MG TABLET PO PRN (00:15)
[2024-08-12] MEDS: INSULIN GLARGINE 100 UNITS/ML SUBCUT NR (02:01)
[2024-08-12 02:46] VITALS: BP 163/84; PULSE 98; RESP 18; TEMP 36.418
[2024-08-12 04:00] VITALS: BP 135/80; PULSE 84; RESP 18; TEMP 36.44736; O2SAT 98
[2024-08-12] MEDS: BLOOD SUGAR DIAGNOSTIC STRIP TEST SCH ×2 (06:56)
[2024-08-12 07:15] LABS: IRON 53 ug/dL (65-175)
[2024-08-12 07:18] LABS: TOTAL IRON BINDING CAPACITY 131 ug/dl (250-425)
[2024-08-12] MEDS ORDERED: INSULIN LISPRO 100 UNITS/ML SUBCUT SCH (07:50)
[2024-08-12] MEDS: INSULIN LISPRO 100 UNITS/ML SUBCUT SCH ×2 (07:57→13:06)
[2024-08-12 08:00] VITALS: BP 132/75; PULSE 99; RESP 20; TEMP 35.89176; O2SAT 99
[2024-08-12] MEDS: PANTOPRAZOLE 40MG DR TABLET PO SCH (09:46)
[2024-08-12] MEDS: ATORVASTATIN CALCIUM 40MG TABLET PO SCH (09:46)
[2024-08-12] MEDS: AMLODIPINE 10MG TABLET PO SCH (09:47)
[2024-08-12] MEDS: DILTIAZEM HCL 180MG CAPSULE ER 24HR PO SCH (09:47)
[2024-08-12] MEDS: APIXABAN 5 MG TABLET PO SCH (09:47)
[2024-08-12] MEDS: INSULIN GLARGINE 100 UNITS/ML SUBCUT SCH (09:53)
[2024-08-12] MEDS ORDERED: INSULIN GLARGINE 100 UNITS/ML SUBCUT SCH (10:00)
[2024-08-12] MEDS: SODIUM CHLORIDE 0.9% 1,000 ML IV SCH (10:09)
[2024-08-12 12:00] VITALS: BP 126/80; PULSE 98; RESP 20; TEMP 36.05844
[2024-08-12] MEDS ORDERED: TRAM50TA3 PO (15:51)
[2024-08-12] MEDS ORDERED: OXYB5TAB21 PO (15:51)
[2024-08-12] MEDS ORDERED: DILT-27 PO (15:51)
[2024-08-12] MEDS ORDERED: ACET325T52 PO (15:51)
[2024-08-12] MEDS ORDERED: ASPI-1406 PO (15:51)
[2024-08-12] MEDS ORDERED: GABA-529 PO (15:51)
[2024-08-12 16:00] VITALS: BP 110/65; PULSE 88; RESP 20; TEMP 36.16956; O2SAT 96
[2024-08-13] MEDS: PANTOPRAZOLE 40MG DR TABLET PO SCH (06:48)
[2024-08-13] MEDS ORDERED: INSULIN LISPRO 100 UNITS/ML SUBCUT SCH (07:20)
[2024-08-13 08:00] VITALS: BP 115/54; PULSE 79; RESP 18; TEMP 36.78072; O2SAT 99
[2024-08-13] MEDS: LOSARTAN 50 MG TABLET PO SCH (08:36)
[2024-08-13 12:00] VITALS: BP 109/67; PULSE 78; RESP 18; TEMP 36.50292; O2SAT 99
[2024-08-13] MEDS ORDERED: KETOROLAC 15MG/ML VIAL IV ONE (12:45)
[2024-08-13] MEDS: INSULIN LISPRO 100 UNITS/ML SUBCUT SCH (13:33)
[2024-08-13 14:02] VITALS: RESP 18
[2024-08-13] MEDS: KETOROLAC 15MG/ML VIAL IM NR (14:02)
[2024-08-13 15:39] VITALS: BP 118/70; PULSE 65; TEMP 98; O2SAT 99
== END 2024-08-13 18:00 | disposition home or self-care (01) | DRG 420 ==
LOC: ER 19:05 → 6EST 23:39 → EDBEDREQ 23:56 → EDBEDREQTM 23:56
PROVIDERS: ADMIT Internal Medicine; ATTEND Internal Medicine
DX: E11.65 Type 2 diabetes mellitus with hyperglycemia (principal); I48.19 Other persistent atrial fibrillation; D50.9 Iron deficiency anemia, unspecified; D53.9 Nutritional anemia, unspecified; I10 Essential (primary) hypertension; J44.89 Other specified chronic obstructive pulmonary disease; E78.5 Hyperlipidemia, unspecified; Z66 Do not resuscitate; Z79.01 Long term (current) use of anticoagulants; Z79.4 Long term (current) use of insulin; Z87.891 Personal history of nicotine dependence; Z91.148 Patient's other noncompliance with medication regimen for other reason; Z79.82 Long term (current) use of aspirin; Z79.899 Other long term (current) drug therapy; Z82.49 Family history of ischemic heart disease and other diseases of the circulatory system; Z83.3 Family history of diabetes mellitus
CPT/HCPCS: 36415; 71045; 80048; 81003; 82010; 82728; 82962; 83036; 83540; 83550; 83880; 84484; 85025; 93005; 93306; 99285; J1815; J1885; J7030

== ENCOUNTER 2024-09-07 15:41 | Emergency (ER) | payer MEDICARE, MEDICAID ==
[~2024-09-07] VITALS: Ht 172.7 cm; Wt 65.0 kg
[~2024-09-07 15:41] MED LIST changes: +ACET-3800 PO; +AMI2 MT; -AMLO10TA80 PO; +ASPI-1406 PO; +ATOR-2 MT; -CHOLECALCIFEROL PO; -DILT180C87 MT; +DILT300C53 MT; +FERR325T6 MT; +GABA-529 PO; -LIP40 MT; -ONDA4TAB50 MT; +OXYB5TAB21 PO; -PANT40TA51 PO; -TRAM-534 MT; +TRAM50TA3 PO
[2024-09-07 15:48] VITALS: O2SAT 100
[2024-09-07] MEDS: ONDANSETRON HCL 4MG/2ML INJ IV ONE (16:00)
[2024-09-07] MEDS: SODIUM CHLORIDE 0.9% 1,000 ML IV ONE (16:00)
[2024-09-07 17:03] LABS: BASOPHILS % 0.9 % (0.0-2.0); DIFFERENTIAL COMMENT 0; EOSINOPHILS % 2.2 % (0.0-5.0); HEMATOCRIT. 40.3 % (42.0-52.0); HEMOGLOBIN. 13.2 g/dL (14.0-18.0); LYMPHOCYTES % 22.8 % (20.0-50.0); MEAN CORPUSCULAR HEMOGLOBIN 25.8 pg (28.0-32.0); MEAN CORPUSCULAR HGB CONC 32.9 g/dL (31.0-37.0); MEAN CORPUSCULAR VOLUME 78.5 fL (80.0-94.0); MEAN PLATELET VOLUME 9.3 fl (7.4-10.4); MONOCYTES % 4.6 % (2.0-8.0); NEUTROPHILS % 69.5 % (40.0-76.0); PLATELET 303 x1000/uL (130-400); RED BLOOD CELL COUNT 5.13 mill/uL (4.7-6.1); RED CELL DISTRIBUTION WIDTH 15.9 % (11.6-14.6); WHITE BLOOD COUNT 8.9 x1000/uL (4.5-11.0)
[2024-09-07 17:08] LABS: CHLORIDE 96 mEq/L (98-107); POTASSIUM 4.6 mEq/L (3.5-5.1); SODIUM 132 mEq/L (136-145)
[2024-09-07 17:09] LABS: CALCIUM 11.3 mg/dL (8.7-10.4); CARBON DIOXIDE 24 mEq/L (21-32)
[2024-09-07 17:13] LABS: CREATININE 1.3 mg/dL (0.6-1.3)
[2024-09-07 17:14] LABS: UREA NITROGEN BLOOD 15 mg/dL (9-23)
[2024-09-07 17:15] LABS: ALANINE AMINOTRANSFERASE < 7 IU/L (10-49); ASPARTATE AMINOTRANSFERASE 14 IU/L (<34); TROPONIN I HIGH SENSITIVITY 10 ng/L (3.0-53)
[2024-09-07 17:16] LABS: ALBUMIN 5.2 g/dL (3.2-4.8); BILIRUBIN TOTAL 0.5 mg/dL (0.1-1.0); PROTEIN TOTAL 9.6 g/dL (6.0-8.3)
[2024-09-07 17:17] VITALS: TEMP 36.72516
[2024-09-07 17:18] LABS: BILIRUBIN DIRECT < 0.1 mg/dL (<=3.0); ETHANOL BLOOD < 10 mg/dL (<10); GLUCOSE 367 mg/dL (70-105)
[2024-09-07 17:32] LABS: BETA HYDROXYBUTYRATE 0.3 mMol/L (0.0-0.3)
[2024-09-07 17:34] LABS: CLARITY URINE CLEAR (CLEAR); COLOR URINE YELLOW (YELLOW); GLUCOSE URINE 3+ (NEGATIVE); KETONES URINE NEGATIVE (NEGATIVE); LEUKOCYTE ESTERASE URINE NEGATIVE (NEGATIVE); NITRITE URINE NEGATIVE (NEGATIVE); OCCULT BLOOD URINE NEGATIVE (NEGATIVE); PROTEIN URINE NEGATIVE (NEGATIVE); SPECIFIC GRAVITY URINE 1.026 (1.005-1.030); UROBILINOGEN URINE 0.2 E.U./dL (0.2-1.0)
[2024-09-07] MEDS ORDERED: SODIUM CHLORIDE 0.9% 1,000 ML IV NR (17:45)
[2024-09-07] MEDS: INSULIN LISPRO 100 UNITS/ML SUBCUT NR ×2 (17:46→19:47)
[2024-09-07 17:50] LABS: BACTERIA URINE 1+; RBC URINE 0-2 /hpf (0-2); SQUAMOUS EPITHELIAL CELL URINE RARE /lpf (RARE/1+); WBC URINE 0-2 /hpf (0-2)
[2024-09-07 20:23] VITALS: BP 129/77; PULSE 79; RESP 16; O2SAT 97
== END 2024-09-07 20:23 | disposition home or self-care (01) ==
LOC: ER 15:41
DX: R10.13 Epigastric pain (principal); E11.65 Type 2 diabetes mellitus with hyperglycemia; I48.91 Unspecified atrial fibrillation; I10 Essential (primary) hypertension; Z79.899 Other long term (current) drug therapy; Z79.82 Long term (current) use of aspirin
CPT/HCPCS: 80076; 80048; 81003; 82010; 80320; 83930; 85025; 84484; 36415; 71045; 93005; 96361; 96374; 99285; J1815; J2405; J7030; G0480

== ENCOUNTER 2024-10-15 16:20 | Emergency (ER) | payer MEDICARE, MEDICAID ==
[~2024-10-15] VITALS: Ht 170.2 cm; Wt 70.0 kg
[2024-10-15 16:25] VITALS: TEMP 98.5; O2SAT 99
[2024-10-15] MEDS ORDERED: SODIUM CHLORIDE 0.9% 1,000 ML IV ONE (16:45)
[2024-10-15 17:28] LABS: EOSINOPHILS % 3.6 % (0.0-5.0); HEMATOCRIT. 37.5 % (42.0-52.0); HEMOGLOBIN. 12.1 g/dL (14.0-18.0); LYMPHOCYTES % 28.8 % (20.0-50.0); MEAN CORPUSCULAR HEMOGLOBIN 25.9 pg (28.0-32.0); MEAN CORPUSCULAR HGB CONC 32.2 g/dL (31.0-37.0); MEAN CORPUSCULAR VOLUME 80.4 fL (80.0-94.0); MEAN PLATELET VOLUME 9.2 fl (7.4-10.4); MONOCYTES % 7.8 % (2.0-8.0); NEUTROPHILS % 58.8 % (40.0-76.0); PLATELET 200 x1000/uL (130-400); RED BLOOD CELL COUNT 4.67 mill/uL (4.7-6.1); RED CELL DISTRIBUTION WIDTH 17.4 % (11.6-14.6); WHITE BLOOD COUNT 7.1 x1000/uL (4.5-11.0)
[2024-10-15 17:33] LABS: CHLORIDE 107 mEq/L (98-107); SODIUM 138 mEq/L (136-145)
[2024-10-15 17:34] LABS: CALCIUM 9.8 mg/dL (8.7-10.4); CARBON DIOXIDE 24 mEq/L (21-32)
[2024-10-15 17:38] LABS: CREATININE 1.1 mg/dL (0.6-1.3)
[2024-10-15 17:39] LABS: UREA NITROGEN BLOOD 20 mg/dL (9-23)
[2024-10-15 17:52] LABS: BETA HYDROXYBUTYRATE < 0.1 mMol/L (0.0-0.3); GLUCOSE 347 mg/dL (70-105)
[2024-10-15] MEDS ORDERED: ACETAMINOPHEN 325MG TABLET PO ONE (19:00)
[2024-10-15 19:36] LABS: TROPONIN I HIGH SENSITIVITY 20 ng/L (3.0-53)
[2024-10-15 20:54] VITALS: BP 157/74; PULSE 84; RESP 16; O2SAT 99
== END 2024-10-15 20:58 | disposition home or self-care (01) ==
LOC: ER 16:20
DX: E11.65 Type 2 diabetes mellitus with hyperglycemia (principal); I11.0 Hypertensive heart disease with heart failure; I50.9 Heart failure, unspecified; J45.909 Unspecified asthma, uncomplicated; Z90.49 Acquired absence of other specified parts of digestive tract
CPT/HCPCS: 99284; 71045; 80048; 82010; 83605; 85025; 84484; 36415; 82803; J7030

== ENCOUNTER 2024-10-17 16:45 | Emergency (ER) | payer MEDICARE, MEDICAID ==
[~2024-10-17] VITALS: Ht 180.3 cm; Wt 87.0 kg
[2024-10-17 16:47] VITALS: O2SAT 97
[2024-10-17] MEDS ORDERED: ONDANSETRON HCL 4MG/2ML INJ IV STA (16:51)
[2024-10-17] MEDS ORDERED: SODIUM CHLORIDE 0.9% 1,000 ML IV ONE (17:00)
[2024-10-17 22:29] LABS: BASOPHILS % 0.6 % (0.0-2.0); EOSINOPHILS % 0.7 % (0.0-5.0); HEMATOCRIT. 41.4 % (42.0-52.0); HEMOGLOBIN. 13.4 g/dL (14.0-18.0); LYMPHOCYTES % 20.6 % (20.0-50.0); MEAN CORPUSCULAR HEMOGLOBIN 26.2 pg (28.0-32.0); MEAN CORPUSCULAR HGB CONC 32.4 g/dL (31.0-37.0); MEAN CORPUSCULAR VOLUME 80.8 fL (80.0-94.0); MEAN PLATELET VOLUME 9.2 fl (7.4-10.4); MONOCYTES % 3.9 % (2.0-8.0); NEUTROPHILS % 74.2 % (40.0-76.0); PLATELET 245 x1000/uL (130-400); RED BLOOD CELL COUNT 5.13 mill/uL (4.7-6.1); RED CELL DISTRIBUTION WIDTH 17.1 % (11.6-14.6)
[2024-10-17 22:39] LABS: PROTHROMBIN TIME 10.9 sec (9.6-11.0)
[2024-10-17 22:54] LABS: CHLORIDE 102 mEq/L (98-107); POTASSIUM 4.9 mEq/L (3.5-5.1); SODIUM 136 mEq/L (136-145)
[2024-10-17 22:55] LABS: CALCIUM 11.2 mg/dL (8.7-10.4); CARBON DIOXIDE 23 mEq/L (21-32)
[2024-10-17 23:00] LABS: CREATININE 1.1 mg/dL (0.6-1.3); GLUCOSE 215 mg/dL (70-105); UREA NITROGEN BLOOD 19 mg/dL (9-23)
[2024-10-17 23:02] LABS: ALANINE AMINOTRANSFERASE 10 IU/L (10-49); ALBUMIN 4.9 g/dL (3.2-4.8); ASPARTATE AMINOTRANSFERASE 14 IU/L (<34); BILIRUBIN DIRECT 0.2 mg/dL (<=3.0)
[2024-10-17 23:03] LABS: BILIRUBIN TOTAL 0.8 mg/dL (0.1-1.0); PROTEIN TOTAL 9.1 g/dL (6.0-8.3)
[2024-10-18] MEDS ORDERED: ONDA4TAB50 MT (02:35)
[2024-10-18] MEDS: ONDANSETRON HCL 4MG TABLET PO ONE (03:30)
[2024-10-18 03:55] VITALS: BP 143/78; PULSE 62; RESP 16; TEMP 36.72516; O2SAT 99
== END 2024-10-18 03:56 | disposition home or self-care (01) ==
LOC: ER 16:45
DX: R11.2 Nausea with vomiting, unspecified (principal); I11.0 Hypertensive heart disease with heart failure; I48.91 Unspecified atrial fibrillation; I50.9 Heart failure, unspecified; E11.9 Type 2 diabetes mellitus without complications; J44.9 Chronic obstructive pulmonary disease, unspecified; Z79.899 Other long term (current) drug therapy; Z79.01 Long term (current) use of anticoagulants; Z79.82 Long term (current) use of aspirin; Z79.84 Long term (current) use of oral hypoglycemic drugs; Z82.49 Family history of ischemic heart disease and other diseases of the circulatory system; Z90.49 Acquired absence of other specified parts of digestive tract
CPT/HCPCS: 80076; 80048; 83690; 85025; 85610; 36415; 99283; J7030; Q0162; Z7610 ×2

== ENCOUNTER 2024-10-30 17:13 | Emergency (ER) | payer MEDICARE, MEDICAID ==
[~2024-10-30] VITALS: Ht 172.7 cm; Wt 80.0 kg
[~2024-10-30 17:13] MED LIST changes: +ONDA4TAB50 MT
[2024-10-30 17:20] VITALS: O2SAT 97
[2024-10-30 19:00] LABS: BASOPHILS % 0.8 % (0.0-2.0); EOSINOPHILS % 2.1 % (0.0-5.0); HEMATOCRIT. 38.2 % (42.0-52.0); HEMOGLOBIN. 12.5 g/dL (14.0-18.0); LYMPHOCYTES % 23.2 % (20.0-50.0); MEAN CORPUSCULAR HEMOGLOBIN 26.2 pg (28.0-32.0); MEAN CORPUSCULAR HGB CONC 32.6 g/dL (31.0-37.0); MEAN CORPUSCULAR VOLUME 80.4 fL (80.0-94.0); MEAN PLATELET VOLUME 8.9 fl (7.4-10.4); MONOCYTES % 6.3 % (2.0-8.0); NEUTROPHILS % 67.6 % (40.0-76.0); PLATELET 235 x1000/uL (130-400); RED BLOOD CELL COUNT 4.75 mill/uL (4.7-6.1); RED CELL DISTRIBUTION WIDTH 17.1 % (11.6-14.6)
[2024-10-30 19:05] LABS: CHLORIDE 100 mEq/L (98-107); POTASSIUM 4.3 mEq/L (3.5-5.1); SODIUM 133 mEq/L (136-145)
[2024-10-30 19:06] LABS: CALCIUM 10.2 mg/dL (8.7-10.4); CARBON DIOXIDE 23 mEq/L (21-32)
[2024-10-30 19:11] LABS: CREATININE 1.1 mg/dL (0.6-1.3); UREA NITROGEN BLOOD 19 mg/dL (9-23)
[2024-10-30] MEDS ORDERED: INSULIN REGULAR (HUMULIN R) 1000UNITS/10ML VIAL IV STA (19:17)
[2024-10-30 19:35] LABS: GLUCOSE 412 mg/dL (70-105)
[2024-10-30] MEDS ORDERED: INSU100I24 SQ (22:22)
[2024-10-30] MEDS: INSULIN REGULAR (HUMULIN R) 1000UNITS/10ML VIAL IV STA (23:31)
[2024-10-30] MEDS: SODIUM CHLORIDE 0.9% 1,000 ML IV ONE (23:31)
[2024-10-30] MEDS: INSULIN REGULAR (HUMULIN R) 1000UNITS/10ML VIAL SUBCUT ONE (23:33)
[2024-10-31 00:40] VITALS: BP 159/95; PULSE 100; RESP 19; TEMP 36.83628; O2SAT 97
== END 2024-10-31 00:40 | disposition home or self-care (01) ==
LOC: ER 17:13 → EDBEDREQ 17:50 → ER 10-31 00:40
DX: E11.65 Type 2 diabetes mellitus with hyperglycemia (principal); I11.0 Hypertensive heart disease with heart failure; I48.91 Unspecified atrial fibrillation; I50.9 Heart failure, unspecified; J44.9 Chronic obstructive pulmonary disease, unspecified; Z79.01 Long term (current) use of anticoagulants; Z79.4 Long term (current) use of insulin; Z79.82 Long term (current) use of aspirin; Z79.84 Long term (current) use of oral hypoglycemic drugs; Z79.899 Other long term (current) drug therapy; Z90.49 Acquired absence of other specified parts of digestive tract
CPT/HCPCS: 99285; 71045; 80048; 83880; 85025; 36415; 93005; J7030; J1815

== ENCOUNTER 2024-12-08 14:42 | Emergency (ER) | payer MEDICARE, MEDICAID ==
[~2024-12-08] VITALS: Ht 172.7 cm; Wt 78.0 kg
[2024-12-08 14:45] VITALS: O2SAT 97
[2024-12-08] MEDS: SODIUM CHLORIDE 0.9% 1,000 ML IV ONE ×2 (15:52→16:37)
[2024-12-08 16:14] LABS: BASOPHILS % 0.9 % (0.0-2.0); EOSINOPHILS % 1.2 % (0.0-5.0); HEMATOCRIT. 38.4 % (42.0-52.0); HEMOGLOBIN. 12.3 g/dL (14.0-18.0); LYMPHOCYTES % 17.8 % (20.0-50.0); MEAN CORPUSCULAR HEMOGLOBIN 26.3 pg (28.0-32.0); MEAN CORPUSCULAR VOLUME 82.2 fL (80.0-94.0); MEAN PLATELET VOLUME 9.3 fl (7.4-10.4); MONOCYTES % 7.5 % (2.0-8.0); NEUTROPHILS % 72.6 % (40.0-76.0); PLATELET 250 x1000/uL (130-400); RED BLOOD CELL COUNT 4.67 mill/uL (4.7-6.1); RED CELL DISTRIBUTION WIDTH 15.8 % (11.6-14.6); WHITE BLOOD COUNT 8.3 x1000/uL (4.5-11.0)
[2024-12-08 16:22] LABS: CHLORIDE 98 mEq/L (98-107); POTASSIUM 4.4 mEq/L (3.5-5.1); SODIUM 130 mEq/L (136-145)
[2024-12-08 16:23] LABS: CALCIUM 10.2 mg/dL (8.7-10.4); CARBON DIOXIDE 23 mEq/L (21-32)
[2024-12-08 16:28] LABS: CREATININE 1.1 mg/dL (0.6-1.3); UREA NITROGEN BLOOD 17 mg/dL (9-23)
[2024-12-08 16:29] LABS: TROPONIN I HIGH SENSITIVITY 6 ng/L (3.0-53)
[2024-12-08 16:30] LABS: BETA HYDROXYBUTYRATE 0.1 mMol/L (0.0-0.3)
[2024-12-08] MEDS: DIPHENHYDRAMINE 50MG/ML VIAL IV ONE (16:37)
[2024-12-08] MEDS: KETOROLAC 30MG/ML VIAL IV ONE (16:37)
[2024-12-08 16:39] LABS: PROTHROMBIN TIME 11.4 sec (9.6-11.0)
[2024-12-08 16:45] LABS: ETHANOL BLOOD < 10 mg/dL (<10); GLUCOSE 562 mg/dL (70-105)
[2024-12-08] MEDS: INSULIN LISPRO 100 UNITS/ML SUBCUT STA (17:33)
[2024-12-08 17:45] VITALS: BP 156/76; PULSE 83; RESP 20; TEMP 37.1; O2SAT 96
== END 2024-12-08 18:12 | disposition home or self-care (01) ==
LOC: ER 14:42
DX: E11.65 Type 2 diabetes mellitus with hyperglycemia (principal); G43.909 Migraine, unspecified, not intractable, without status migrainosus; E78.00 Pure hypercholesterolemia, unspecified; I11.9 Hypertensive heart disease without heart failure; I48.91 Unspecified atrial fibrillation; J44.9 Chronic obstructive pulmonary disease, unspecified; Z55.6 Problems related to health literacy; Z79.01 Long term (current) use of anticoagulants; Z79.82 Long term (current) use of aspirin; Z79.84 Long term (current) use of oral hypoglycemic drugs; Z79.899 Other long term (current) drug therapy; Z90.49 Acquired absence of other specified parts of digestive tract
CPT/HCPCS: 80048; 82010; 80320; 82962; 83880; 85025; 85610; 84484; 36415; 71045; 70450; 82803; 93005; 96361; 96374; 96375; 99285; J1200; J1815; J1885; J7030; G0480

== ENCOUNTER 2025-01-12 16:56 | Inpatient (IN) | payer MEDICARE, MEDICAID ==
[~2025-01-12] VITALS: Ht 198.1 cm; Wt 76.2 kg
[~2025-01-12 16:56] MED LIST changes: -ACET-3800 PO; -AMI2 MT; -APIX5TAB PO; -ASPI-1406 PO; -ATOR-2 MT; +ATOR40TA70 PO; -DAPA5TAB MT; -DILT300C53 MT; -DOCU250C14 PO; +FERR325T30 PO; -FERR325T6 MT; -GABA-529 PO; -INSNOV SUBCUT; -INSU100I24 SQ; +METO25TA6 PO; -ONDA4TAB50 MT; -OXYB5TAB21 PO; +PANT40TA51 PO; +TAMS-11 PO; -TRAM50TA3 PO
[2025-01-12] MEDS: SODIUM CHLORIDE 0.9% 1,000 ML IV ONE (17:30)
[2025-01-12] MEDS: DILTIAZEM HCL 5MG/ML 5ML VIAL IV ONE (17:45)
[2025-01-12 17:46] LABS: BASOPHILS % 1.2 % (0.0-2.0); EOSINOPHILS % 1.3 % (0.0-5.0); HEMATOCRIT. 39.1 % (42.0-52.0); HEMOGLOBIN. 12.4 g/dL (14.0-18.0); LYMPHOCYTES % 17.5 % (20.0-50.0); MEAN CORPUSCULAR HEMOGLOBIN 26.1 pg (28.0-32.0); MEAN CORPUSCULAR HGB CONC 31.8 g/dL (31.0-37.0); MEAN PLATELET VOLUME 9.5 fl (7.4-10.4); MONOCYTES % 6.4 % (2.0-8.0); NEUTROPHILS % 73.6 % (40.0-76.0); PLATELET 297 x1000/uL (130-400); RED BLOOD CELL COUNT 4.77 mill/uL (4.7-6.1); RED CELL DISTRIBUTION WIDTH 15.9 % (11.6-14.6); WHITE BLOOD COUNT 11.2 x1000/uL (4.5-11.0)
[2025-01-12 17:49] LABS: CARBON DIOXIDE 24 mEq/L (21-32); CHLORIDE 100 mEq/L (98-107); POTASSIUM 4.4 mEq/L (3.5-5.1); SODIUM 133 mEq/L (136-145)
[2025-01-12 17:50] LABS: CALCIUM 10.5 mg/dL (8.7-10.4)
[2025-01-12 17:52] LABS: INR 1.1; PROTHROMBIN TIME 12.1 sec (9.6-11.0)
[2025-01-12 17:55] LABS: CREATININE 1.5 mg/dL (0.6-1.3); UREA NITROGEN BLOOD 21 mg/dL (9-23)
[2025-01-12 17:56] LABS: TROPONIN I HIGH SENSITIVITY 51 ng/L (3.0-53)
[2025-01-12 18:17] LABS: GLUCOSE 355 mg/dL (70-105)
[2025-01-12 19:10] LABS: CLARITY URINE TURBID (CLEAR); COLOR URINE YELLOW (YELLOW); GLUCOSE URINE 3+ (NEGATIVE); KETONES URINE NEGATIVE (NEGATIVE); LEUKOCYTE ESTERASE URINE 2+ (NEGATIVE); NITRITE URINE NEGATIVE (NEGATIVE); OCCULT BLOOD URINE 1+ (NEGATIVE); PH URINE 5.5 (4.5-8.0); PROTEIN URINE 1+ (NEGATIVE); SPECIFIC GRAVITY URINE 1.027 (1.005-1.030); UROBILINOGEN URINE 0.2 E.U./dL (0.2-1.0)
[2025-01-12 19:35] LABS: RBC URINE 0-2 /hpf (0-2); SQUAMOUS EPITHELIAL CELL URINE 1+ /lpf (RARE/1+); WBC URINE TNTC /hpf (0-2)
[2025-01-12 19:36] LABS: BACTERIA URINE 2+
[2025-01-12] MEDS: CEFTRIAXONE 2GM/50ML 50 ML IV ONE (20:19)
[2025-01-12] MEDS ORDERED: SODIUM CHLORIDE 0.9% 1,000 ML IV ONE (21:30)
[2025-01-12 22:25] LABS: TROPONIN I HIGH SENSITIVITY 45 ng/L (3.0-53)
[2025-01-12 22:41] LABS: LACTIC ACID 2.3 mmol/L (0.4-2.0)
[2025-01-12 22:50] VITALS: BP 142/74; PULSE 100; RESP 18; TEMP 36.6
[2025-01-13] MEDS ORDERED: LINA5TAB PO (00:31)
[2025-01-13] MEDS ORDERED: DAPA5TAB PO (00:31)
[2025-01-13] MEDS ORDERED: ATOR40TA70 PO (00:43)
[2025-01-13] MEDS ORDERED: METF-414 PO (00:43)
[2025-01-13] MEDS ORDERED: OXYB-52 PO (00:43)
[2025-01-13] MEDS ORDERED: DILT-106 PO (00:43)
[2025-01-13] MEDS ORDERED: ASPI-1497 PO (00:43)
[2025-01-13] MEDS ORDERED: IPRATROPIUM/ALBUTEROL 0.5-3(2.5)MG/3ML NEB NEB PRN (01:45)
[2025-01-13] MEDS ORDERED: DEXTROSE 50% WATER 50ML SYRINGE IV PRN (01:45)
[2025-01-13] MEDS ORDERED: HYDROCODONE/ACETAMINOPHEN 5/325MG TABLET PO PRN (01:45)
[2025-01-13] MEDS ORDERED: MAGNESIUM/ALUMINUM HYDROXIDE/SIMETHICONE 30ML UDC PO PRN (01:45)
[2025-01-13] MEDS ORDERED: NA PHOS,M-B/NA PHOS,DI-BA ENEMA 118ML PR PRN (01:45)
[2025-01-13] MEDS ORDERED: ACETAMINOPHEN 325MG TABLET PO PRN ×2 (01:45)
[2025-01-13] MEDS ORDERED: ONDANSETRON HCL 4MG/2ML INJ IV PRN (01:45)
[2025-01-13] MEDS ORDERED: CLONIDINE 0.1MG TABLET PO PRN (01:45)
[2025-01-13] MEDS ORDERED: DOCUSATE SODIUM 100MG CAPSULE PO PRN (01:45)
[2025-01-13] MEDS ORDERED: NITROGLYCERIN 0.4MG TABLET SL SL PRN (01:45)
[2025-01-13] MEDS: INSULIN LISPRO 100 UNITS/ML SUBCUT NR (02:13)
[2025-01-13] MEDS: SODIUM CHLORIDE 0.9% 1,000 ML IV SCH (02:14)
[2025-01-13] MEDS: GABAPENTIN 100MG CAPSULE PO SCH ×2 (06:00→06:49)
[2025-01-13] MEDS: BLOOD SUGAR DIAGNOSTIC STRIP TEST SCH (06:14)
[2025-01-13] MEDS: ENOXAPARIN 80MG/0.8ML SYR SUBCUT SCH (06:49)
[2025-01-13] MEDS: INSULIN LISPRO 100 UNITS/ML SUBCUT SCH (07:40)
[2025-01-13 08:00] VITALS: BP 114/87; PULSE 64; RESP 18; TEMP 36.3; O2SAT 100
[2025-01-13 08:21] LABS: TROPONIN I HIGH SENSITIVITY 32 ng/L (3.0-53)
[2025-01-13 08:26] LABS: CREATINE KINASE 27 IU/L (46-171)
[2025-01-13] MEDS: METOPROLOL TARTRATE 25MG TABLET PO SCH (08:46)
[2025-01-13] MEDS: TAMSULOSIN HCL 0.4MG SR CAPSULE PO SCH (08:46)
[2025-01-13] MEDS: ASPIRIN 81MG EC TABLET PO SCH (08:46)
[2025-01-13] MEDS ORDERED: OXYBUTYNIN CHLORIDE 5MG TABLET PO SCH (09:00)
[2025-01-13] MEDS ORDERED: AMIODARONE 200MG TABLET PO SCH (09:00)
[2025-01-13] MEDS: PANTOPRAZOLE 40MG DR TABLET PO SCH (09:06)
[2025-01-13] MEDS ORDERED: INSULIN GLARGINE 100 UNITS/ML SUBCUT SCH (10:00)
[2025-01-13] MEDS: INSULIN GLARGINE 100 UNITS/ML SUBCUT SCH ×2 (10:57→23:19)
[2025-01-13 12:00] VITALS: BP 108/63; PULSE 83; RESP 18; TEMP 35.9
[2025-01-13 16:00] VITALS: BP 99/66; PULSE 70; RESP 18; TEMP 36.5; O2SAT 100
[2025-01-13] MEDS: AMIODARONE 200MG TABLET PO SCH (16:30)
[2025-01-13 20:00] VITALS: BP 103/73; PULSE 138; RESP 20; TEMP 35.6; O2SAT 97
[2025-01-13 21:18] LABS: TROPONIN I HIGH SENSITIVITY 19 ng/L (3.0-53)
[2025-01-13 21:19] LABS: CREATINE KINASE 25 IU/L (46-171)
[2025-01-13] MEDS: ATORVASTATIN CALCIUM 40MG TABLET PO SCH (23:17)
[2025-01-13] MEDS: CEFTRIAXONE 1GM/50ML 50 ML IV SCH (23:17)
[2025-01-14] VITALS (12 sets, daily range): BP systolic 102–122; BP diastolic 60–74; PULSE 66–121; RESP 16–20; TEMP 35.8–36.6; O2SAT 96–100
[2025-01-14] MEDS: DILTIAZEM HCL 5MG/ML 5ML VIAL IV NR (01:29)
[2025-01-14] MEDS: DILTIAZEM HCL 180MG CAPSULE ER 24HR PO SCH (06:46)
[2025-01-14 07:26] LABS: BASOPHILS % 0.7 % (0.0-2.0); EOSINOPHILS % 2.6 % (0.0-5.0); HEMATOCRIT. 36.9 % (42.0-52.0); HEMOGLOBIN. 11.8 g/dL (14.0-18.0); LYMPHOCYTES % 27.7 % (20.0-50.0); MEAN CORPUSCULAR HEMOGLOBIN 26.2 pg (28.0-32.0); MEAN CORPUSCULAR HGB CONC 31.9 g/dL (31.0-37.0); MEAN CORPUSCULAR VOLUME 81.9 fL (80.0-94.0); MEAN PLATELET VOLUME 9.6 fl (7.4-10.4); MONOCYTES % 7.2 % (2.0-8.0); NEUTROPHILS % 61.8 % (40.0-76.0); PLATELET 233 x1000/uL (130-400); RED CELL DISTRIBUTION WIDTH 16.2 % (11.6-14.6); WHITE BLOOD COUNT 7.4 x1000/uL (4.5-11.0)
[2025-01-14 07:38] LABS: POTASSIUM 3.8 mEq/L (3.5-5.1)
[2025-01-14 07:40] LABS: CALCIUM 9.3 mg/dL (8.7-10.4)
[2025-01-14 07:45] LABS: CREATININE 1.2 mg/dL (0.6-1.3); T4 FREE 0.91 ng/dL (0.89-1.76)
[2025-01-14 07:46] LABS: THYROID STIMULATING HORMONE 2.68 uIU/mL (0.55-4.78)
[2025-01-14] MEDS: SPIRONOLACTONE 25MG TABLET PO SCH (09:10)
[2025-01-14] MEDS: IPRATROPIUM/ALBUTEROL 0.5-3(2.5)MG/3ML NEB HHN SCH (09:57)
[2025-01-14] MEDS ORDERED: AMI2 PO (12:53)
[2025-01-14] MEDS ORDERED: SPIR25TA PO (12:53)
[2025-01-14] MEDS ORDERED: LEVO750T68 MT (12:53)
[2025-01-14] MEDS ORDERED: LANTUSUD SUBCUT ×2 (12:53)
[2025-01-14] MEDS ORDERED: GABA-529 PO (12:53)
[2025-01-14] MEDS ORDERED: APIX5TAB MT (12:56)
[2025-01-14 16:52] LABS: TROPONIN I HIGH SENSITIVITY 14 ng/L (3.0-53)
== END 2025-01-14 23:55 | disposition home health service (06) | DRG 871 ==
LOC: ER 16:56 → EDBEDREQ 21:29 → EDBEDREQTM 21:29 → EDBEDREQ 21:39 → 8WST 22:53
PROVIDERS: ADMIT Hospitalist; ATTEND Hospitalist
DX: A41.9 Sepsis, unspecified organism (principal); N17.0 Acute kidney failure with tubular necrosis; I48.19 Other persistent atrial fibrillation; E87.1 Hypo-osmolality and hyponatremia; N39.0 Urinary tract infection, site not specified; I50.42 Chronic combined systolic (congestive) and diastolic (congestive) heart failure; J84.9 Interstitial pulmonary disease, unspecified; I48.92 Unspecified atrial flutter; E11.65 Type 2 diabetes mellitus with hyperglycemia; E78.00 Pure hypercholesterolemia, unspecified; I11.0 Hypertensive heart disease with heart failure; G83.10 Monoplegia of lower limb affecting unspecified side; I25.10 Atherosclerotic heart disease of native coronary artery without angina pectoris; I35.0 Nonrheumatic aortic (valve) stenosis; R32 Unspecified urinary incontinence; J43.9 Emphysema, unspecified; I07.1 Rheumatic tricuspid insufficiency; L92.8 Other granulomatous disorders of the skin and subcutaneous tissue; I25.2 Old myocardial infarction; Z95.5 Presence of coronary angioplasty implant and graft; Z91.199 Patient's noncompliance with other medical treatment and regimen due to unspecified reason; Z87.891 Personal history of nicotine dependence; Z86.12 Personal history of poliomyelitis; Z83.3 Family history of diabetes mellitus; Z82.49 Family history of ischemic heart disease and other diseases of the circulatory system; Z79.899 Other long term (current) drug therapy; Z79.4 Long term (current) use of insulin; Z79.01 Long term (current) use of anticoagulants
CPT/HCPCS: 36415; 71045; 76770; 80048; 81003; 82010; 82550; 82962; 83605; 83880; 84145; 84439; 84443; 84484; 85025; 87077; 87186; 93005; 94640; 94760; 99291; A4606; J0696; J1650; J1815; J3490; J7030

== ENCOUNTER 2025-03-28 14:01 | Emergency (ER) | payer BC, MEDICAID, MEDICARE ==
[~2025-03-28] VITALS: Ht 165.1 cm; Wt 73.0 kg
[~2025-03-28 14:01] MED LIST changes: +AMI2 PO; +APIX5TAB MT; +ASPI-1497 PO; +DAPA5TAB PO; +GABA-529 PO; +LANTUSUD SUBCUT; -METF-414 PO; -METO25TA6 PO; +OXYB-52 PO; -PANT40TA51 PO; +SPIR25TA PO; -TAMS-11 PO; +TAMS-54 PO
[2025-03-28 14:07] VITALS: O2SAT 98
[2025-03-28 14:34] VITALS: TEMP 36.7
[2025-03-28 14:47] LABS: BASOPHILS % 0.6 % (0.0-2.0); EOSINOPHILS % 2.9 % (0.0-5.0); HEMATOCRIT. 40.3 % (42.0-52.0); HEMOGLOBIN. 13.2 g/dL (14.0-18.0); LYMPHOCYTES % 32.5 % (20.0-50.0); MEAN CORPUSCULAR HGB CONC 32.6 g/dL (31.0-37.0); MEAN CORPUSCULAR VOLUME 82.6 fL (80.0-94.0); MONOCYTES % 7.2 % (2.0-8.0); NEUTROPHILS % 56.8 % (40.0-76.0); PLATELET 191 x1000/uL (130-400); RED BLOOD CELL COUNT 4.88 mill/uL (4.7-6.1); RED CELL DISTRIBUTION WIDTH 18.3 % (11.6-14.6); WHITE BLOOD COUNT 7.4 x1000/uL (4.5-11.0)
[2025-03-28 14:56] LABS: CALCIUM 10.1 mg/dL (8.7-10.4); CARBON DIOXIDE 22 mEq/L (21-32); CHLORIDE 105 mEq/L (98-107); POTASSIUM 4.8 mEq/L (3.5-5.1); SODIUM 137 mEq/L (136-145)
[2025-03-28 14:59] LABS: INR 1.1; PROTHROMBIN TIME 11.7 sec (9.6-11.0)
[2025-03-28 15:01] LABS: CREATININE 1.4 mg/dL (0.6-1.3); GLUCOSE 128 mg/dL (70-105)
[2025-03-28 15:02] LABS: ETHANOL BLOOD < 10 mg/dL (<10); TROPONIN I HIGH SENSITIVITY 7 ng/L (3.0-53); UREA NITROGEN BLOOD 30 mg/dL (9-23)
[2025-03-28 15:03] LABS: ALANINE AMINOTRANSFERASE 11 IU/L (10-49); ALBUMIN 4.3 g/dL (3.2-4.8); ASPARTATE AMINOTRANSFERASE 13 IU/L (<34)
[2025-03-28 15:04] LABS: BILIRUBIN DIRECT 0.2 mg/dL (<=3.0); BILIRUBIN TOTAL 0.6 mg/dL (0.1-1.0); PROTEIN TOTAL 7.7 g/dL (6.0-8.3)
[2025-03-28] MEDS: ONDANSETRON HCL 4MG/2ML INJ IV STA (15:31)
[2025-03-28 17:13] LABS: GLUCOSE URINE 3+ (NEGATIVE); KETONES URINE NEGATIVE (NEGATIVE); LEUKOCYTE ESTERASE URINE 2+ (NEGATIVE); NITRITE URINE NEGATIVE (NEGATIVE); OCCULT BLOOD URINE 1+ (NEGATIVE); PROTEIN URINE TRACE (NEGATIVE); SPECIFIC GRAVITY URINE 1.024 (1.005-1.030); UROBILINOGEN URINE 0.2 E.U./dL (0.2-1.0)
[2025-03-28 17:32] LABS: COLOR URINE STRAW (YELLOW)
[2025-03-28 17:33] LABS: CLARITY URINE HAZY (CLEAR)
[2025-03-28 17:38] LABS: WBC URINE 50-100 /hpf (0-2)
[2025-03-28 17:39] LABS: BACTERIA URINE 3+; RBC URINE NONE SEEN /hpf (0-2); SQUAMOUS EPITHELIAL CELL URINE 1+ /lpf (RARE/1+)
[2025-03-28 19:09] LABS: TROPONIN I HIGH SENSITIVITY 6 ng/L (3.0-53)
[2025-03-28] MEDS ORDERED: CEFP100T8 MT (19:38)
[2025-03-28 20:00] VITALS: BP 110/64; PULSE 76; RESP 11; O2SAT 99
== END 2025-03-28 20:11 | disposition home or self-care (01) ==
LOC: ER 14:01
DX: N39.0 Urinary tract infection, site not specified (principal); J44.9 Chronic obstructive pulmonary disease, unspecified; I48.91 Unspecified atrial fibrillation; I25.2 Old myocardial infarction; I10 Essential (primary) hypertension; E78.00 Pure hypercholesterolemia, unspecified; E11.9 Type 2 diabetes mellitus without complications; Z90.49 Acquired absence of other specified parts of digestive tract; Z79.899 Other long term (current) drug therapy; Z79.01 Long term (current) use of anticoagulants; Z98.890 Other specified postprocedural states
CPT/HCPCS: 80076; 80048; 81003; 80320; 83690; 85025; 85610; 87086; 84484; 36415; 71045; 74176; 93005; 96374; 99285; J2405; A4606; G0480

== ENCOUNTER 2025-04-24 15:03 | Emergency (ER) | payer MEDICARE, MEDICAID ==
[~2025-04-24] VITALS: Ht 165.1 cm; Wt 72.0 kg
[~2025-04-24 15:03] MED LIST changes: +NITR0.4T49 SL; +TOPUD PO
[2025-04-24 15:18] VITALS: TEMP 36.9; O2SAT 98
[2025-04-24 16:41] VITALS: TEMP 98.4
[2025-04-24] MEDS: ACETAMINOPHEN 500MG TABLET PO ONE (16:41)
[2025-04-24] MEDS ORDERED: NAPR-679 MT (17:56)
[2025-04-24] MEDS ORDERED: LIDO700A30 TP (17:57)
[2025-04-24] MEDS: NAPROXEN 375MG TABLET PO ONE (18:31)
[2025-04-24 18:32] VITALS: BP 159/81; PULSE 69; RESP 12; O2SAT 98
[2025-04-24] MEDS: LIDOCAINE 5% PATCH TOP ONE (18:32)
== END 2025-04-24 18:36 | disposition home or self-care (01) ==
LOC: ER 15:03
DX: M25.552 Pain in left hip (principal); I10 Essential (primary) hypertension; E11.9 Type 2 diabetes mellitus without complications; I48.91 Unspecified atrial fibrillation; E78.00 Pure hypercholesterolemia, unspecified; Z79.1 Long term (current) use of non-steroidal anti-inflammatories (NSAID); Z79.899 Other long term (current) drug therapy; Z79.01 Long term (current) use of anticoagulants; Z86.12 Personal history of poliomyelitis; Z98.890 Other specified postprocedural states
CPT/HCPCS: 73502; 99284

== ENCOUNTER 2025-06-13 17:39 | Emergency (ER) | payer MEDICARE, MEDICAID ==
[~2025-06-13] VITALS: Ht 177.8 cm; Wt 77.0 kg
[~2025-06-13 17:39] MED LIST changes: -APIX5TAB MT; +APIX5TAB PO; +DAPA10TA PO; -DAPA5TAB PO; -GABA-529 PO; -NITR0.4T49 SL; -OXYB-52 PO; -SPIR25TA PO; -TAMS-54 PO; -TOPUD PO
[2025-06-13 17:41] VITALS: O2SAT 99
[2025-06-13 18:32] VITALS: TEMP 36.9
[2025-06-13 19:51] LABS: BASOPHILS % 0.9 % (0.0-2.0); EOSINOPHILS % 3.7 % (0.0-5.0); HEMATOCRIT. 40.5 % (42.0-52.0); HEMOGLOBIN. 13.6 g/dL (14.0-18.0); LYMPHOCYTES % 30.3 % (20.0-50.0); MEAN PLATELET VOLUME 9.6 fl (7.4-10.4); MONOCYTES % 7.9 % (2.0-8.0); NEUTROPHILS % 57.2 % (40.0-76.0); PLATELET 239 x1000/uL (130-400); RED BLOOD CELL COUNT 4.83 mill/uL (4.7-6.1); RED CELL DISTRIBUTION WIDTH 16.9 % (11.6-14.6)
[2025-06-13 20:05] LABS: CREATININE 1.4 mg/dL (0.6-1.3)
[2025-06-13 20:06] LABS: UREA NITROGEN BLOOD 22 mg/dL (9-23)
[2025-06-13 20:07] LABS: TROPONIN I HIGH SENSITIVITY 8 ng/L (3.0-53)
[2025-06-13 20:22] VITALS: BP 145/70; PULSE 74; RESP 20; O2SAT 97
== END 2025-06-13 20:38 | disposition home or self-care (01) ==
LOC: ER 17:39
DX: R60.0 Localized edema (principal); M79.89 Other specified soft tissue disorders; M79.604 Pain in right leg; M79.605 Pain in left leg; E11.9 Type 2 diabetes mellitus without complications; E78.00 Pure hypercholesterolemia, unspecified; I11.9 Hypertensive heart disease without heart failure; I48.91 Unspecified atrial fibrillation; Z55.6 Problems related to health literacy; Z79.01 Long term (current) use of anticoagulants; Z79.82 Long term (current) use of aspirin; Z79.84 Long term (current) use of oral hypoglycemic drugs; Z79.899 Other long term (current) drug therapy; Z87.891 Personal history of nicotine dependence; Z99.3 Dependence on wheelchair
CPT/HCPCS: 36415; 71045; 80048; 82550; 83880; 84484; 85025; 93971; 99284

== ENCOUNTER 2025-06-24 16:04 | Emergency (ER) | payer MEDICARE, MEDICAID ==
[2025-06-24 17:36] LABS: BASOPHILS % 1.0 % (0.0-2.0); EOSINOPHILS % 3.6 % (0.0-5.0); HEMATOCRIT. 41.9 % (42.0-52.0); HEMOGLOBIN. 13.9 g/dL (14.0-18.0); LYMPHOCYTES % 18.1 % (20.0-50.0); MEAN PLATELET VOLUME 9.2 fl (7.4-10.4); MONOCYTES % 6.7 % (2.0-8.0); NEUTROPHILS % 70.6 % (40.0-76.0); PLATELET 228 x1000/uL (130-400); RED BLOOD CELL COUNT 4.98 mill/uL (4.7-6.1); RED CELL DISTRIBUTION WIDTH 16.7 % (11.6-14.6)
[2025-06-24 17:47] LABS: INR 1.0
[2025-06-24 17:48] LABS: CREATININE 1.3 mg/dL (0.6-1.3); UREA NITROGEN BLOOD 19 mg/dL (9-23)
[2025-06-24 17:50] LABS: ASPARTATE AMINOTRANSFERASE 18 IU/L (<34); BILIRUBIN DIRECT 0.1 mg/dL (<=3.0); BILIRUBIN TOTAL 0.4 mg/dL (0.1-1.0); PROTEIN TOTAL 6.7 g/dL (6.0-8.3); TROPONIN I HIGH SENSITIVITY 18 ng/L (3.0-53)
[2025-06-24 19:57] VITALS: TEMP 36.5
[2025-06-24 22:00] VITALS: BP 150/69; PULSE 67; RESP 12; O2SAT 97
[2025-06-24] MEDS: DOXYCYCLINE HYCLATE 100MG CAPSULE PO NR (22:40)
== END 2025-06-24 22:45 | disposition home or self-care (01) ==
LOC: ER 16:04 → CMPBEDREQ 06-25 07:47
DX: M79.89 Other specified soft tissue disorders (principal); R60.9 Edema, unspecified; E11.9 Type 2 diabetes mellitus without complications; E78.00 Pure hypercholesterolemia, unspecified; I11.0 Hypertensive heart disease with heart failure; I50.9 Heart failure, unspecified; Z79.01 Long term (current) use of anticoagulants; Z79.82 Long term (current) use of aspirin; Z79.84 Long term (current) use of oral hypoglycemic drugs; Z79.899 Other long term (current) drug therapy; Z90.49 Acquired absence of other specified parts of digestive tract; Z95.5 Presence of coronary angioplasty implant and graft
CPT/HCPCS: 36415; 71045; 71275; 80048; 80076; 83880; 84484; 85025; 85379; 93005; 93971; 99285

== ENCOUNTER 2025-06-30 16:32 | Emergency (ER) | payer MEDICARE, MEDICAID ==
[~2025-06-30] VITALS: Ht 167.6 cm; Wt 78.0 kg
[2025-06-30 16:42] VITALS: BP 174/86; PULSE 84; RESP 18; TEMP 37; O2SAT 99
[2025-06-30] MEDS: ACETAMINOPHEN 500MG TABLET PO ONE (17:40)
[2025-06-30] MEDS: HYDROCODONE/ACETAMINOPHEN 7.5/325MG TABLET PO ONE (18:17)
[2025-06-30] MEDS ORDERED: TOPUD MT (19:09)
== END 2025-06-30 19:14 | disposition home or self-care (01) ==
LOC: ER 16:32
DX: R51.9 Headache, unspecified (principal); I11.0 Hypertensive heart disease with heart failure; I50.9 Heart failure, unspecified
CPT/HCPCS: 99284

== ENCOUNTER 2025-07-26 16:40 | Emergency (ER) | payer MEDICARE, MEDICAID ==
[~2025-07-26] VITALS: Ht 165.1 cm; Wt 82.0 kg
[~2025-07-26 16:40] MED LIST changes: +TOPUD MT
[2025-07-26 16:46] VITALS: O2SAT 96
[2025-07-26] MEDS: IBUPROFEN 600MG TABLET PO ONE (17:45)
[2025-07-26 19:12] VITALS: BP 168/98; PULSE 78; RESP 16; TEMP 36.9; O2SAT 96
== END 2025-07-26 19:12 | disposition home or self-care (01) ==
LOC: ER 16:40
DX: S53.402A Unspecified sprain of left elbow, initial encounter (principal); E11.9 Type 2 diabetes mellitus without complications; E78.00 Pure hypercholesterolemia, unspecified; I11.0 Hypertensive heart disease with heart failure; I48.20 Chronic atrial fibrillation, unspecified; I50.9 Heart failure, unspecified; J44.9 Chronic obstructive pulmonary disease, unspecified; Z79.01 Long term (current) use of anticoagulants; Z79.82 Long term (current) use of aspirin; Z79.84 Long term (current) use of oral hypoglycemic drugs; Z79.899 Other long term (current) drug therapy; Z83.3 Family history of diabetes mellitus
CPT/HCPCS: 73080; 93005; 99283

== ENCOUNTER 2025-09-15 11:55 | Inpatient (IN) | payer MEDICARE, MEDICAID ==
[~2025-09-15] VITALS: Ht 172.7 cm; Wt 84.8 kg
[~2025-09-15 11:55] MED LIST changes: +COLC0.6C3 MT; +FURO-152 PO; +GABA-529 PO; +HYDR-4001 MT; +INDO-14 PO; +METF-1150 PO; +METO5TAB86 MT; +PANT40SU MT
[2025-09-15] MEDS: IPRATROPIUM BROMIDE (0.02%) 0.5MG/2.5ML NEB HHN ONE (12:52)
[2025-09-15] MEDS: ALBUTEROL (0.083%) 2.5MG/3ML NEB HHN ONE (12:53)
[2025-09-15 12:54] VITALS: PULSE 80; RESP 22; O2SAT 95
[2025-09-15 13:08] LABS: BASOPHILS % 0.9 % (0.0-2.0); EOSINOPHILS % 4.9 % (0.0-5.0); HEMATOCRIT. 38.4 % (42.0-52.0); HEMOGLOBIN. 12.2 g/dL (14.0-18.0); LYMPHOCYTES % 21.0 % (20.0-50.0); MEAN PLATELET VOLUME 8.7 fl (7.4-10.4); MONOCYTES % 7.5 % (2.0-8.0); NEUTROPHILS % 65.7 % (40.0-76.0); PLATELET 236 x1000/uL (130-400); RED BLOOD CELL COUNT 4.48 mill/uL (4.7-6.1); RED CELL DISTRIBUTION WIDTH 15.5 % (11.6-14.6)
[2025-09-15] MEDS: METHYLPREDNISOLONE SOD SUCC 125MG/2ML (ACT-O-VIAL) IV ONE (13:21)
[2025-09-15] MEDS: SODIUM CHLORIDE 0.9% 1,000 ML IV ONE (13:21)
[2025-09-15 13:31] LABS: CREATININE 1.5 mg/dL (0.6-1.3); UREA NITROGEN BLOOD 14 mg/dL (9-23)
[2025-09-15 13:33] LABS: ASPARTATE AMINOTRANSFERASE 22 IU/L (<34); BILIRUBIN DIRECT 0.1 mg/dL (<=3.0); BILIRUBIN TOTAL 0.4 mg/dL (0.1-1.0); PROTEIN TOTAL 7.5 g/dL (6.0-8.3)
[2025-09-15 13:36] LABS: TROPONIN I HIGH SENSITIVITY 80 ng/L (3.0-53)
[2025-09-15 16:24] LABS: TROPONIN I HIGH SENSITIVITY 55 ng/L (3.0-53)
[2025-09-15 17:58] VITALS: BP 141/70; PULSE 85; RESP 17; TEMP 36.418
[2025-09-15 20:00] VITALS: BP 141/70; PULSE 83; RESP 18; TEMP 36.4; O2SAT 97
[2025-09-15 21:49] LABS: CLARITY URINE CLEAR (CLEAR); GLUCOSE URINE 3+ (NEGATIVE); KETONES URINE NEGATIVE (NEGATIVE); LEUKOCYTE ESTERASE URINE NEGATIVE (NEGATIVE); NITRITE URINE NEGATIVE (NEGATIVE); OCCULT BLOOD URINE NEGATIVE (NEGATIVE); PH URINE 5.0 (4.5-8.0); PROTEIN URINE NEGATIVE (NEGATIVE); SPECIFIC GRAVITY URINE 1.021 (1.005-1.030); UROBILINOGEN URINE 0.2 E.U./dL (0.2-1.0)
[2025-09-15] MEDS ORDERED: IPRATROPIUM/ALBUTEROL 0.5-3(2.5)MG/3ML NEB HHN PRN (22:00)
[2025-09-15] MEDS ORDERED: DOCUSATE SODIUM 100MG CAPSULE PO PRN (22:00)
[2025-09-15] MEDS ORDERED: MAGNESIUM/ALUMINUM HYDROXIDE/SIMETHICONE 30ML UDC PO PRN (22:00)
[2025-09-15] MEDS ORDERED: ONDANSETRON HCL 4MG/2ML INJ IV PRN (22:00)
[2025-09-15] MEDS ORDERED: GUAIFENESIN 200MG/10ML SUGAR FREE UDC PO PRN (22:00)
[2025-09-15] MEDS ORDERED: ACETAMINOPHEN 325MG TABLET PO PRN (22:00)
[2025-09-15] MEDS ORDERED: DEXTROSE 50% WATER 50ML SYRINGE IV PRN (22:00)
[2025-09-15 22:07] LABS: *AMPHETAMINES SCREEN URINE NEGATIVE (NEGATIVE); *BARBITURATES SCREEN URINE NEGATIVE (NEGATIVE); *BENZODIAZEPINES SCREEN URINE NEGATIVE (NEGATIVE); *COCAINE SCREEN URINE NEGATIVE (NEGATIVE); CANNABINOID URINE SCREEN NEGATIVE (NEGATIVE); ECSTASY MDMA SCREEN URINE NEGATIVE (NEGATIVE); METHADONE URINE SCREEN NEGATIVE (NEGATIVE); OPIATES URINE SCREEN PRESUMPTIVE POSITIVE (NEGATIVE); PHENCYCLIDINE URINE SCREEN NEGATIVE (NEGATIVE)
[2025-09-15 22:12] LABS: COLOR URINE STRAW (YELLOW)
[2025-09-15 22:15] LABS: BACTERIA URINE NONE SEEN; RBC URINE NONE SEEN /hpf (0-2); SQUAMOUS EPITHELIAL CELL URINE FEW /lpf (RARE/1+); WBC URINE NONE SEEN /hpf (0-2)
[2025-09-15] MEDS: ACETAMINOPHEN 325MG TABLET PO PRN (23:32)
[2025-09-16] VITALS: BP 149/76; PULSE 86; RESP 20; TEMP 36.7; O2SAT 96
[2025-09-16] MEDS ORDERED: DEXT 5%/0.9% NACL 1,000 ML IV ONE
[2025-09-16] MEDS ORDERED: DEXTROSE 50% WATER 50ML SYRINGE IV PRN ×2
[2025-09-16] MEDS: METOCLOPRAMIDE HCL 5MG TABLET PO SCH (00:51)
[2025-09-16] MEDS: HYDROCODONE/ACETAMINOPHEN 5/325MG TABLET PO NR (01:54)
[2025-09-16 04:00] VITALS: BP 145/83; PULSE 75; RESP 14; TEMP 36.3; O2SAT 96
[2025-09-16] MEDS: INDOMETHACIN 25MG CAPSULE PO SCH (05:45)
[2025-09-16] MEDS: GABAPENTIN 100MG CAPSULE PO SCH (05:45)
[2025-09-16] MEDS: BLOOD SUGAR DIAGNOSTIC STRIP TEST SCH (05:55)
[2025-09-16 07:04] LABS: BASOPHILS % 0.1 % (0.0-2.0); EOSINOPHILS % 0.0 % (0.0-5.0); HEMATOCRIT. 35.2 % (42.0-52.0); HEMOGLOBIN. 11.5 g/dL (14.0-18.0); LYMPHOCYTES % 10.9 % (20.0-50.0); MEAN PLATELET VOLUME 9.7 fl (7.4-10.4); MONOCYTES % 2.2 % (2.0-8.0); NEUTROPHILS % 86.8 % (40.0-76.0); PLATELET 243 x1000/uL (130-400); RED BLOOD CELL COUNT 4.17 mill/uL (4.7-6.1); RED CELL DISTRIBUTION WIDTH 15.8 % (11.6-14.6)
[2025-09-16 07:29] LABS: CREATININE 1.8 mg/dL (0.6-1.3); UREA NITROGEN BLOOD 25.0 mg/dL (9-23)
[2025-09-16 07:31] LABS: PHOSPHORUS 3.3 mg/dL (2.5-4.9)
[2025-09-16 08:00] VITALS: BP 128/87; PULSE 84; RESP 21; TEMP 36.8; O2SAT 99
[2025-09-16] MEDS: FAMOTIDINE 20MG/2ML VIAL IV SCH (09:12)
[2025-09-16] MEDS: INSULIN LISPRO 100 UNITS/ML SUBCUT SCH (09:16)
[2025-09-16] MEDS: APIXABAN 5 MG TABLET PO SCH (09:26)
[2025-09-16] MEDS: FUROSEMIDE 20MG TABLET PO SCH (09:26)
[2025-09-16] MEDS: ASPIRIN 81MG TABLET PO SCH (09:26)
[2025-09-16] MEDS: COLCHICINE 0.6MG TABLET PO SCH (09:26)
[2025-09-16] MEDS: FERROUS SULFATE 325MG TABLET PO SCH (09:26)
[2025-09-16] MEDS: AMIODARONE 200MG TABLET PO SCH (09:26)
[2025-09-16] MEDS: INSULIN GLARGINE 100 UNITS/ML SUBCUT SCH ×2 (10:43→21:20)
[2025-09-16 12:00] VITALS: BP 148/76; PULSE 77; RESP 19; TEMP 36.7; O2SAT 98
[2025-09-16] MEDS: HYDROCODONE/ACETAMINOPHEN 5/325MG TABLET PO PRN (15:12)
[2025-09-16 16:00] VITALS: BP 143/74; PULSE 63; RESP 18; TEMP 36.8; O2SAT 98
[2025-09-16 20:00] VITALS: BP 130/69; PULSE 65; RESP 17; TEMP 36.7; O2SAT 98
[2025-09-16] MEDS: ATORVASTATIN CALCIUM 40MG TABLET PO SCH (21:19)
[2025-09-17] VITALS (8 sets, daily range): BP systolic 119–145; BP diastolic 69–88; PULSE 59–72; RESP 16–25; TEMP 36.6–36.9; O2SAT 96–100
[2025-09-17] MEDS: IPRATROPIUM/ALBUTEROL 0.5-3(2.5)MG/3ML NEB HHN SCH (03:09)
[2025-09-17 13:07] LABS: CREATININE 1.5 mg/dL (0.6-1.3); UREA NITROGEN BLOOD 36.0 mg/dL (9-23)
== END 2025-09-17 15:22 | disposition home health service (06) | DRG 189 ==
LOC: ER 12:07 → 3WST 16:22 → EDBEDREQTM 16:31 → EDBEDREQ 16:31 → ENRESERV 16:35
PROVIDERS: ADMIT Internal Medicine; ATTEND Internal Medicine
DX: J96.21 Acute and chronic respiratory failure with hypoxia (principal); I21.A1 Myocardial infarction type 2; N17.9 Acute kidney failure, unspecified; J44.1 Chronic obstructive pulmonary disease with (acute) exacerbation; I50.9 Heart failure, unspecified; D64.9 Anemia, unspecified; E11.9 Type 2 diabetes mellitus without complications; I11.0 Hypertensive heart disease with heart failure; S91.302A Unspecified open wound, left foot, initial encounter; E78.00 Pure hypercholesterolemia, unspecified; I48.91 Unspecified atrial fibrillation; S60.512A Abrasion of left hand, initial encounter; S01.80XA Unspecified open wound of other part of head, initial encounter; S60.519A Abrasion of unspecified hand, initial encounter; M10.9 Gout, unspecified; I25.2 Old myocardial infarction; Z82.49 Family history of ischemic heart disease and other diseases of the circulatory system; Z83.3 Family history of diabetes mellitus; Z99.3 Dependence on wheelchair; Z79.899 Other long term (current) drug therapy; X58.XXXA Exposure to other specified factors, initial encounter; Y93.89 Activity, other specified; Y92.89 Other specified places as the place of occurrence of the external cause; Y99.8 Other external cause status
CPT/HCPCS: 36415; 71045; 80048; 80076; 80305; 81003; 82962; 83036; 83735; 83880; 84100; 84484; 85025; 85379; 93005; 94070; 94640; 94664; 98960; 99285; A4615; J1308; J1815; J2919; J7030; J8597

== ENCOUNTER 2025-10-07 18:02 | Emergency (ER) | payer MEDICARE, MEDICAID ==
[~2025-10-07] VITALS: Ht 177.8 cm; Wt 77.0 kg
[~2025-10-07 18:02] MED LIST changes: -FURO-152 PO; -GABA-529 PO; -HYDR-4001 MT; -INDO-14 PO; -METO5TAB86 MT; -PANT40SU MT; +SULF1TAB47 MT; +TAMS-54 MT; -TOPUD MT
[2025-10-07 18:06] VITALS: O2SAT 99
[2025-10-07] MEDS: SODIUM CHLORIDE 0.9% 1,000 ML IV ONE (20:04)
[2025-10-07] MEDS: MORPHINE SULFATE 4 MG/ML INJ (FOR IV/IM USE) IV ONE (20:05)
[2025-10-07 20:22] LABS: BASOPHILS % 1.2 % (0.0-2.0); EOSINOPHILS % 4.0 % (0.0-5.0); HEMATOCRIT. 40.1 % (42.0-52.0); HEMOGLOBIN. 12.9 g/dL (14.0-18.0); LYMPHOCYTES % 31.9 % (20.0-50.0); MEAN PLATELET VOLUME 9.2 fl (7.4-10.4); MONOCYTES % 8.6 % (2.0-8.0); NEUTROPHILS % 54.3 % (40.0-76.0); PLATELET 215 x1000/uL (130-400); RED BLOOD CELL COUNT 4.81 mill/uL (4.7-6.1); RED CELL DISTRIBUTION WIDTH 15.5 % (11.6-14.6)
[2025-10-07 20:26] LABS: CLARITY URINE CLEAR (CLEAR); COLOR URINE YELLOW (YELLOW); GLUCOSE URINE 3+ (NEGATIVE); KETONES URINE NEGATIVE (NEGATIVE); LEUKOCYTE ESTERASE URINE NEGATIVE (NEGATIVE); NITRITE URINE NEGATIVE (NEGATIVE); OCCULT BLOOD URINE NEGATIVE (NEGATIVE); PH URINE 5.0 (4.5-8.0); PROTEIN URINE NEGATIVE (NEGATIVE); SPECIFIC GRAVITY URINE 1.012 (1.005-1.030); UROBILINOGEN URINE 0.2 E.U./dL (0.2-1.0)
[2025-10-07 20:34] LABS: CREATININE 1.4 mg/dL (0.6-1.3)
[2025-10-07 20:35] LABS: PROTEIN TOTAL 7.2 g/dL (6.0-8.3); UREA NITROGEN BLOOD 15 mg/dL (9-23)
[2025-10-07 20:36] LABS: ASPARTATE AMINOTRANSFERASE 19 IU/L (<34)
[2025-10-07 20:37] LABS: BILIRUBIN DIRECT 0.1 mg/dL (<=3.0); BILIRUBIN TOTAL 0.3 mg/dL (0.1-1.0)
[2025-10-07 20:39] LABS: BACTERIA URINE 1+; RBC URINE 0-2 /hpf (0-2); SQUAMOUS EPITHELIAL CELL URINE 1+ /lpf (RARE/1+); WBC URINE 0-2 /hpf (0-2)
[2025-10-08 00:42] LABS: BG DEOXYHEMOGLOBIN 64.6 % (0.0-5.0)
[2025-10-08 02:25] VITALS: TEMP 36.9
[2025-10-08 04:46] VITALS: BP 121/71; PULSE 82; RESP 16; O2SAT 99
== END 2025-10-08 04:47 | disposition home or self-care (01) ==
LOC: ER 18:02 → CMPBEDREQ 10-08 07:40
DX: R10.33 Periumbilical pain (principal); E11.9 Type 2 diabetes mellitus without complications; E78.00 Pure hypercholesterolemia, unspecified; J44.89 Other specified chronic obstructive pulmonary disease; I48.91 Unspecified atrial fibrillation; I10 Essential (primary) hypertension; Z79.899 Other long term (current) drug therapy; Z79.84 Long term (current) use of oral hypoglycemic drugs; Z79.82 Long term (current) use of aspirin; Z79.01 Long term (current) use of anticoagulants; Z90.49 Acquired absence of other specified parts of digestive tract
CPT/HCPCS: 99285; 74174; 96374; 80076; 80048; 81003; 83690; 83735; 85025; 36415; 82375; 82803; J2270; J7030; A4606